=== PATIENT | male | born 1955 | race Caucasian/White ===

== ENCOUNTER 2021-10-29 11:47 | Inpatient (IN) | payer BC ==
[2021-10-29 12:23] LABS: Basophils % (A) 0 %; Eosinophils # (A) 0.1 k/uL (0-0.7); Eosinophils % (A) 1 %; HCT 45.8 % (39.0-53.0); HGB 15.7 gm/dL (13.0-17.5); Lymphocytes # (A) 2.4 k/uL (1.0-4.8); Lymphocytes % (A) 25 %; MCH 32.5 pg (25.0-35.0); MCHC 34.2 g/dL (31.0-37.0); MCV 94.9 fL (80.0-100.0); Mean Platelet Volume 7.1; Monocytes # (A) 0.4 k/uL (0-1.0); Monocytes % (A) 5 %; Neutrophils # (A) 6.6 k/uL (1.3-7.7); Neutrophils % (A) 68 %; Platelet Count 232 k/uL (150-450); RBC 4.83 m/uL (4.30-5.90); RDW 13.7 % (11.5-15.5); WBC 9.7 k/uL (3.8-10.6)
[2021-10-29 12:33] LABS: Partial Thromboplastin Time 24.5 sec (22.0-30.0); Prothrombin Time 10.6 sec (9.0-12.0)
[2021-10-29 12:37] LABS: ALT 23 U/L (4-49); AST 18 U/L (17-59); African American GFR (CKD) >90 (>60 ml/min/1.73 sqM); Albumin 4.2 g/dL (3.5-5.0); Alkaline Phosphatase 77 U/L (38-126); Anion Gap 11 mmol/L; Blood Urea Nitrogen 8 mg/dL (9-20); Calcium 8.7 mg/dL (8.4-10.2); Carbon Dioxide 25 mmol/L (22-30); Chloride 100 mmol/L (98-107); Glucose 249 mg/dL (74-99); Non-African American GFR(CKD) >90 (>60 ml/min/1.73 sqM); Sodium 136 mmol/L (137-145); Total Bilirubin 0.9 mg/dL (0.2-1.3); Total Protein 6.7 g/dL (6.3-8.2)
[2021-10-29] MEDS ORDERED: NITROGLYCERIN OINT 1 INCH/GM PACKET TOPICAL STA (13:03)
[2021-10-29] MEDS ORDERED: ASPIRIN 81 MG PO STA (13:03)
[2021-10-29] MEDS ORDERED: MORPHINE SULFATE 4 MG/ML SYRINGE IV STA (13:03)
[2021-10-29] MEDS ORDERED: HEPARIN SODIUM 1,000 UN/ML (10ML VL) IV ONE (13:04)
[2021-10-29] MEDS ORDERED: HEPARIN SODIUM 1,000 UN/ML (10ML VL) IV PRN (13:04)
[2021-10-29] MEDS ORDERED: POTASSIUM CHLORIDE ER 20 MEQ TAB.ER PO STA (13:04)
--- NOTE | 2021-10-29 13:30 | XR ---
EXAMINATION TYPE: XR chest 2V DATE OF EXAM: 10/29/2021 1:13 PM COMPARISON: None TECHNIQUE: XR chest 2V Frontal and lateral views of the chest. CLINICAL INDICATION:Male, 66 years old with history of Pain; FINDINGS: Lungs/Pleura: There is no evidence of pleural effusion, focal consolidation, or pneumothorax. Pulmonary vascularity: Unremarkable. Heart/mediastinum: Cardiomediastinal silhouette is unremarkable. Musculoskeletal: No acute osseous pathology. IMPRESSION: No acute cardiopulmonary disease/process.
[2021-10-29] MEDS: HEPARIN SOD,PORK IN 0.45% NACL 25,000 UNIT in 0.45% NACL 1 250ML.BAG IV SCH (13:34)
[2021-10-29 13:39] LABS: INR 1.1 (<1.2)
[2021-10-29 13:40] LABS: Prothrombin Time 11.4 sec (9.0-12.0)
--- NOTE | 2021-10-29 13:50 | ED ---
Chest Pain HPI - General Chief Complaint: Chest Pain Stated Complaint: chest pain Time Seen by Provider: 10/29/21 12:57 Source: patient Mode of arrival: ambulatory Limitations: no limitations - History of Present Illness Initial Comments: This patient is 66-year-old man who presents to be evaluated for chest pain that started yesterday in the morning. He states that he has had associated fatigue and thinks that he slept for about 18 hours yesterday. This morning he also had an episode of diaphoresis associated with the pain. The patient states that the pain has decreased somewhat since he has arrived here. Patient does have proximal pack per day smoking history. MD Complaint: chest pain Onset/Timin -: hour(s) Onset: during rest Pain Location: substernal Pain Radiation: back Severity: severe Quality: heaviness Consistency: now resolved (Partially resolved) Improves With: nothing Worsens With: nothing Anginal Symptoms: diaphoresis Treatments Prior to Arrival: none - Related Data Home Medications Medication Instructions Recorded Confirmed Lansoprazole [Prevacid 24Hr] 30 mg PO DAILY 10/29/21 10/29/21 Simvastatin [Zocor] 20 mg PO HS 10/29/21 10/29/21 Tamsulosin [Flomax] 0.4 mg PO DAILY 10/29/21 10/29/21 amLODIPine [Norvasc] 5 mg PO DAILY 10/29/21 10/29/21 Allergies Allergy/AdvReac Type Severity Reaction Status Date / Time No Known Allergies Allergy Verified 10/29/21 13:59 Review of Systems ROS Statement: Those systems with pertinent positive or pertinent negative responses have been documented in the HPI. ROS Other: All systems not noted in ROS Statement are negative. Constitutional: Denies: fever, chills Respiratory: Denies: cough, dyspnea, wheezes Cardiovascular: Reports: as per HPI, chest pain. Denies: palpitations, edema, syncope Gastrointestinal: Denies: abdominal pain, nausea, vomiting, diarrhea Genitourinary: Denies: dysuria, hematuria Musculoskeletal: Denies: back pain Skin: Denies: rash Neurological: Denies: headache, weakness, numbness Past Medical History Past Medical History: Cancer Additional Past Medical History / Comment(s): Jordan KNOTT History of Any Multi-Drug Resistant Organisms: None Reported Past Surgical History: No Surgical Hx Reported Smoking Status: Current every day smoker Past Alcohol Use History: Daily Past Drug Use History: None Reported - Past Family History Father History Unknown: Yes Mother History Unknown: Yes General Exam Limitations: no limitations General appearance: alert, in no apparent distress Head exam: Present: atraumatic, normocephalic Eye exam: Present: normal appearance. Absent: scleral icterus, conjunctival injection Neck exam: Present: normal inspection Respiratory exam: Present: normal lung sounds bilaterally. Absent: respiratory distress, wheezes, rales, rhonchi, stridor, chest wall tenderness, accessory muscle use Cardiovascular Exam: Present: regular rate, normal rhythm, normal heart sounds. Absent: systolic murmur, diastolic murmur, rubs, gallop GI/Abdominal exam: Present: soft. Absent: distended, tenderness, guarding, rebound, rigid, mass Extremities exam: Present: normal inspection, normal capillary refill. Absent: pedal edema, calf tenderness Back exam: Present: normal inspection. Absent: CVA tenderness (R), CVA tenderness (L) Neurological exam: Present: alert Skin exam: Present: warm, dry, intact, normal color. Absent: rash Course Vital Signs 10/29/21 10/29/21 10/29/21 11:51 13:35 13:55 Temperature 98.6 F Pulse Rate 88 72 Pulse Rate [ 72 Pulse Oximetery ] Respiratory 20 16 Rate Blood Pressure 114/69 139/90 O2 Sat by Pulse 100 94 L Oximetry 10/29/21 17:10 Temperature 98.1 F Pulse Rate 77 Pulse Rate [ Pulse Oximetery ] Respiratory 18 Rate Blood Pressure 149/94 O2 Sat by Pulse 93 L Oximetry Critical Care Time Critical Care Time: Yes (30 minutes) Disposition Clinical Impression: NSTEMI (non-ST elevated myocardial infarction), Chest pain Disposition: ADMITTED IP TO THIS HOSP Condition: Fair Is patient prescribed a controlled substance at d/c from ED?: No
[2021-10-29] MEDS ORDERED: NALOXONE 0.4 MG/ML 1 ML VIAL IV PRN (13:52)
--- NOTE | 2021-10-29 14:18 | P.HPIM ---
History of Present Illness H&P Date: 10/29/21 Chief Complaint: chest pain 66-year-old man with history of hypertension, hyperlipidemia, GERD, BPH presented to the emergency department due to having chest pain that started yesterday in the morning. He states that he has had associated fatigue and thinks that he slept for about 18 hours yesterday. Pain is stabbing in quality, feels like someone is putting a knife in between his shoulder blades. It is also associated with shortness of breath. No nausea, vomiting, diaphoresis, dizziness, palpitations. Pain is constant. It is currently better compared to when he came in. Evaluation in the emergency department revealed a slightly elevated troponin at 0.049. Potassium was 3. Rest of labs okay. Chest x-ray did not show any acute cardiopulmonary disease. Review of Systems Complete review of system performed, pertinent positives per HPI, otherwise negative Past Medical History Past Medical History: Cancer Additional Past Medical History / Comment(s): Jordan KNOTT History of Any Multi-Drug Resistant Organisms: None Reported Past Surgical History: No Surgical Hx Reported Smoking Status: Current every day smoker Past Alcohol Use History: Daily Past Drug Use History: None Reported Medications and Allergies Home Medications Medication Instructions Recorded Confirmed Type Lansoprazole [Prevacid 24Hr] 30 mg PO DAILY 10/29/21 10/29/21 History Simvastatin [Zocor] 20 mg PO HS 10/29/21 10/29/21 History Tamsulosin [Flomax] 0.4 mg PO DAILY 10/29/21 10/29/21 History amLODIPine [Norvasc] 5 mg PO DAILY 10/29/21 10/29/21 History Allergies Allergy/AdvReac Type Severity Reaction Status Date / Time No Known Allergies Allergy Verified 10/29/21 13:59 Physical Exam Vitals: Vital Signs Temp Pulse Pulse Resp BP Pulse Ox 10/29/21 13:55 72 16 139/90 94 L 10/29/21 13:35 72 10/29/21 11:51 98.6 F 88 20 114/69 100 Intake and Output 10/28/21 10/29/21 10/29/21 22:59 06:59 14:59 Other: Weight 78.925 kg Constitutional: No acute distress, conversant, pleasant Eyes:Anicteric sclerae, moist conjunctiva, no lid-lag, PERRLA, ENMT: Oropharynx clear, no erythema, exudates Neck: Supple, FROM, no masses, or JVD, No carotid bruits, No thyromegaly Lungs: Clear to auscultation, Clear to percussion, Normal respiratory effort, no accessory muscle use Cardiovascular: Heart regular in rate and rhythm, No murmurs, gallops, or rubs, No peripheral edema Abdominal: Soft, Nontender, no guarding, rebound or rigidity, Normoactive bowel sounds, No hepatomegaly, No splenomegaly, No palpable mass Skin: Normal temperature, tone, texture, turgor, no induration, No subcutaneous nodules, No rash, lesions, No ulcers Extremities: No digital cyanosis, No clubbing, Pedal pulses intact and symmetrical, Radial pulses intact and symmetrical, No calf tenderness Psychiatric: Alert and oriented to person, place and time, appropriate affect, intact judgement Neuro: Muscles Strength 5/5 in all 4 extremities, Sensation to light touch grossly present throughout, Cranial nerves II-XII grossly intact, no focal sensory deficits Results CBC & Chem 7: 10/29/21 11:57 10/29/21 11:57 Labs: Abnormal Lab Results - Last 24 Hours (Table) 10/29/21 10/29/21 Range/Units 11:57 11:57 Sodium 136 L (137-145) mmol/L Potassium 3.0 L (3.5-5.1) mmol/L BUN 8 L (9-20) mg/dL Creatinine 0.52 L (0.66-1.25) mg/dL Glucose 249 H (74-99) mg/dL Troponin I 0.049 H* (0.000-0.034) ng/mL Assessment and Plan Plan: Acute chest pain with elevated troponin Non-ST elevation myocardial infarction Heparin drip Started on aspirin Cardio consult. Telemetry Cycle troponins Echo CT angio chest to r/o PE or dissection Chronic Hypertension Hyperlipidemia BPH GERD All stable Resume meds Admit to inpatient, expected length of stay more than 2 midnights.
--- NOTE | 2021-10-29 14:58 | CT ---
EXAMINATION TYPE: CT chest angio for PE DATE OF EXAM: 10/29/2021 COMPARISON: None HISTORY: chest pain CT DLP: 764.4 mGycm Automated exposure control for dose reduction was used. CONTRAST: Performed with IV Contrast, patient injected with 100 mL of Isovue 370. There are Three-D postprocessed images. There is 2 x 1 cm pretracheal lymph node. Thoracic aorta is atheromatous. No aneurysm. The ascending aorta measures 3.4 cm. There are no hilar masses. Heart size is normal. No pericardial effusion. No p leural effusion. The lungs are clear of infiltrate. No evidence of a pulmonary mass. There is normal contrast opacification of the pulmonary arteries. No filling defect. Thoracic spine i s intact. There is no compression fracture. Sternum is intact. There is thickening of the gastric wall. IMPRESSION: No evidence of pulmonary embolism. Atherosclerotic vascular disease. Gastric wall thickening that could relate to hypertrophic gastritis.
[2021-10-30 03:26] LABS: Basophils % (A) 0 %; Eosinophils # (A) 0.1 k/uL (0-0.7); Eosinophils % (A) 1 %; HCT 43.9 % (39.0-53.0); HGB 14.8 gm/dL (13.0-17.5); Lymphocytes # (A) 2.9 k/uL (1.0-4.8); Lymphocytes % (A) 31 %; MCH 32.9 pg (25.0-35.0); MCHC 33.7 g/dL (31.0-37.0); MCV 97.5 fL (80.0-100.0); Mean Platelet Volume 7.1; Monocytes # (A) 0.4 k/uL (0-1.0); Monocytes % (A) 5 %; Neutrophils # (A) 5.7 k/uL (1.3-7.7); Neutrophils % (A) 61 %; Platelet Count 220 k/uL (150-450); RDW 13.7 % (11.5-15.5); WBC 9.2 k/uL (3.8-10.6)
[2021-10-30 03:38] LABS: ALT 20 U/L (4-49); AST 16 U/L (17-59); African American GFR (CKD) >90 (>60 ml/min/1.73 sqM); Albumin 3.8 g/dL (3.5-5.0); Alkaline Phosphatase 73 U/L (38-126); Anion Gap 10 mmol/L; Blood Urea Nitrogen 9 mg/dL (9-20); Calcium 8.6 mg/dL (8.4-10.2); Carbon Dioxide 27 mmol/L (22-30); Chloride 99 mmol/L (98-107); Glucose 250 mg/dL (74-99); Non-African American GFR(CKD) >90 (>60 ml/min/1.73 sqM); Potassium 3.4 mmol/L (3.5-5.1); Sodium 136 mmol/L (137-145); Total Bilirubin 0.6 mg/dL (0.2-1.3); Total Protein 6.3 g/dL (6.3-8.2)
[2021-10-30] MEDS ORDERED: HEPARIN SODIUM,PORCINE 10,000 UNIT in SODIUM CHLORIDE 0.9% 1,000 ML IRRIGATION PRN (07:00)
[2021-10-30] MEDS ORDERED: HEPARIN SODIUM,PORCINE 2,500 UNIT in SODIUM CHLORIDE 0.9% 250 ML IRRIGATION PRN (07:00)
[2021-10-30] MEDS ORDERED: Potassium Replacement Protocol 1 EACH MISC MISCELLANE PRN (07:44)
[2021-10-30] MEDS ORDERED: POTASSIUM CHLORIDE ER 20 MEQ TAB.ER PO STA (07:45)
[2021-10-30] MEDS: TAMSULOSIN 0.4 MG CAP.ER.24H PO SCH (08:31)
[2021-10-30] MEDS: amLODIPine 5 MG TAB PO SCH (08:31)
[2021-10-30] MEDS ORDERED: ALPRAZolam 0.5 MG TAB PO PRN (08:48)
[2021-10-30] MEDS ORDERED: SODIUM CHLORIDE 0.9% 1,000 ML in EMPTY BAG 1 BAG IV ONE (08:48)
[2021-10-30] MEDS ORDERED: ATORVASTATIN 80 MG TAB PO STA (08:48)
[2021-10-30] MEDS ORDERED: ALPRAZolam 0.25 MG TAB PO PRN (08:48)
[2021-10-30] MEDS ORDERED: ASPIRIN 325 MG TAB PO SCH (09:00)
--- NOTE | 2021-10-30 09:20 | P.CRDCN ---
History of Present Illness History of present illness: HISTORY OF PRESENTING ILLNESS This is a pleasant 66-year-old male past medical history significant for hypertension, dyslipidemia, GERD, BPH, bladder cancer, tobacco dependence. 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 We have been asked to see in consultation for chest pain. Patient presents to the emergency department with complaints of chest pain. Patient states saturday he helped his friend unpack a [employer]. Afterwards he went home, and began to have midsternal/left sided chest pain, radiating to his back. He states it was pressure discomfort and felt as if someone was stabbing his back. He had pain at rest and activity. No tenderness to his chest or back. He had relief with nitroglycerin ointment. He had associated shortness of breath. Denies any nausea, vomiting, lightheadedness, dizziness, diaphoresis, syncope or near syncope. He denies any history of CAD, NE, stroke or diabetes. He is a current every day smoker, smokes 1PPD. Denies any family history of heart disease. DIAGNOSTICS * EKG reveals sinus rhythm HR 82, minimal ST depression in lead V3. No prior EKG to compare. * CTA of the chest reported as no pulmonary embolism, atherosclerotic vascular disease, ascending aorta measures 3.4 cm, pretracheal lymph node, gastric wall thickening that could relate to hypertrophic gastritis. * Telemetry tracings indicate sinus mechanism with HR 70s-80s * Chest xray no acute cardiopulmonary process * Laboratory reviewed, troponin 0.049, serum 054, 0.048, sodium 136, potassium 3.4, BUN 9, serum creatinine 0.6, WBC 9.2, hemoglobin 14.8, platelets 220, Coban negative * Current home medications include amlodipine 5 mg daily, simvastatin 20 mg nightly REVIEW OF SYSTEMS At the time of my exam: CONSTITUTIONAL: Denies fever or chills. CARDIOVASCULAR: +chest pain, +shortness of breath, Denies orthopnea, PND or palpitations. RESPIRATORY: Denies cough. GASTROINTESTINAL: Denies abdominal pain, diarrhea, constipation, nausea or vomiting. MUSCULOSKELETAL: Denies myalgias. NEUROLOGIC: Denies numbness, tingling, headache or weakness. ENDOCRINE: Denies fatigue, weight change, polydipsia or polyurina. GENITOURINARY: Denies burning, hematuria or urgency with micturation. HEMATOLOGIC: Denies history of anemia or bleeding. PHYSICAL EXAMINATION Vitals reviewed CONSTITUTIONAL: No apparent distress. HEENT: Head is normocephalic. Pupils are equal, round. Sclerae anicteric. Mucous membranes of the mouth are moist. No JVD. No carotid bruit. CHEST EXAMINATION: Lungs are clear to auscultation. No chest wall tenderness is noted on palpation or with deep breathing. HEART EXAMINATION: Regular rate and rhythm. S1, S2 heard. No murmurs, gallops or rub. ABDOMEN: Soft, nontender. Positive bowel sounds. EXTREMITIES: 2+ peripheral pulses, no lower extremity edema and no calf tenderness. SKIN: warm, dry NEUROLOGIC EXAMINATION: Patient is awake, alert and oriented x3. ASSESSMENT Chest pain and mildly elevated troponin, concerning for NSTEMI Tobacco dependence Hypertension Dyslipidemia GERD BPH PLAN Recommend cardiac catheterization at this time, patient is agreeable. Obtain 2D echocardiogram and doppler study to assess cardiac structure and function. I have discussed the risks, benefits and alternative therapies for the above- mentioned procedure and for both sedation/analgesia as well as necessary blood product administration, if indicated, as they pertain to this patient. The patient has indicated understanding and acceptance of the risks and procedures discussed. Questions have been answered appropriately and he is agreeable to move forward with the above-stated procedure. Further recommendations based on clinical course Smoking cessation discussed and highly recommended. Thank you kindly for this consultation. Nurse practitioner note has been reviewed by physician. Signing provider agrees with the documented findings, assessment, and plan of care. Past Medical History Past Medical History: Cancer Additional Past Medical History / Comment(s): Bladder CA 8 years ago chemical dye/cystoscopy History of Any Multi-Drug Resistant Organisms: None Reported Past Surgical History: No Surgical Hx Reported Past Anesthesia/Blood Transfusion Reactions: No Reported Reaction Past Psychological History: No Psychological Hx Reported Smoking Status: Current every day smoker Past Alcohol Use History: Daily Past Drug Use History: None Reported - Past Family History Father History Unknown: Yes Mother History Unknown: Yes Medications and Allergies Home Medications Medication Instructions Recorded Confirmed Type Lansoprazole [Prevacid 24Hr] 30 mg PO DAILY 10/29/21 10/29/21 History Simvastatin [Zocor] 20 mg PO HS 10/29/21 10/29/21 History Tamsulosin [Flomax] 0.4 mg PO DAILY 10/29/21 10/29/21 History amLODIPine [Norvasc] 5 mg PO DAILY 10/29/21 10/29/21 History Allergies Allergy/AdvReac Type Severity Reaction Status Date / Time No Known Allergies Allergy Verified 10/29/21 13:59 Physical Exam Vitals: Vital Signs Temp Pulse Pulse Resp BP BP Pulse Ox 10/30/21 02:00 98.5 F 67 17 134/72 92 L 10/30/21 01:47 67 18 10/29/21 20:00 98.9 F 72 18 115/70 95 10/29/21 17:59 99.1 F 72 17 157/85 95 10/29/21 17:10 98.1 F 77 18 149/94 93 L 10/29/21 13:55 72 16 139/90 94 L 10/29/21 13:35 72 10/29/21 11:51 98.6 F 88 20 114/69 100 Intake and Output 10/29/21 10/30/21 10/30/21 22:59 06:59 14:59 Intake Total 68.665 161.886 Balance 68.665 161.886 Intake: IV 80 Heparin Sod,Pork in 0.45% 80 NaCl 25,000 unit In 0.45 % NaCl 1 250ml.bag @ 12 UNITS/KG/HR 9.471 mls/hr IV .Q24H [facility] Rx#: [id number] Intake, IV Titration 68.665 81.886 Amount Heparin Sod,Pork in 0.45% 68.665 81.886 NaCl 25,000 unit In 0.45 % NaCl 1 250ml.bag @ 12 UNITS/KG/HR 9.471 mls/hr IV .Q24H [facility] Rx#: [id number] Other: Voiding Method Toilet Toilet Urinal Urinal # Voids 1 1 Weight 78.925 kg Results 10/30/21 02:59 10/30/21 02:59 Cardiac Enzymes 10/29/21 10/29/21 10/29/21 Range/Units 11:57 11:57 13:20 AST 18 (17-59) U/L Troponin I 0.049 H* 0.054 H* (0.000-0.034) ng/mL 10/29/21 10/30/21 Range/Units 18:33 02:59 AST 16 L (17-59) U/L Troponin I 0.048 H* (0.000-0.034) ng/mL Coagulation 10/29/21 10/29/21 10/29/21 Range/Units 11:57 13:20 18:33 PT 10.6 11.4 (9.0-12.0) sec APTT 24.5 30.3 H (22.0-30.0) sec 10/30/21 Range/Units 02:59 PT (9.0-12.0) sec APTT 34.5 H (22.0-30.0) sec CBC 10/29/21 10/30/21 Range/Units 11:57 02:59 WBC 9.7 9.2 (3.8-10.6) k/uL RBC 4.83 4.50 (4.30-5.90) m/uL Hgb 15.7 14.8 (13.0-17.5) gm/dL Hct 45.8 43.9 (39.0-53.0) % Plt Count 232 220 (150-450) k/uL Comprehensive Metabolic Panel 10/29/21 10/30/21 Range/Units 11:57 02:59 Sodium 136 L 136 L (137-145) mmol/L Potassium 3.0 L 3.4 L (3.5-5.1) mmol/L Chloride 100 99 (98-107) mmol/L Carbon Dioxide 25 27 (22-30) mmol/L BUN 8 L 9 (9-20) mg/dL Creatinine 0.52 L 0.63 L (0.66-1.25) mg/dL Glucose 249 H 250 H (74-99) mg/dL Calcium 8.7 8.6 (8.4-10.2) mg/dL AST 18 16 L (17-59) U/L ALT 23 20 (4-49) U/L Alkaline Phosphatase 77 73 (38-126) U/L Total Protein 6.7 6.3 (6.3-8.2) g/dL Albumin 4.2 3.8 (3.5-5.0) g/dL Current Medications Generic Name Dose Route Start Last Admin Trade Name Freq PRN Reason Stop Dose Admin Amlodipine Besylate 5 mg 10/30/21 09:00 Amlodipine 5 Mg Tab PO DAILY ROLANDO Aspirin 325 mg 10/30/21 09:00 Aspirin 325 Mg Tab PO DAILY ROLANDO Atorvastatin Calcium 10 mg 10/30/21 22:17 Atorvastatin 10 Mg Tab PO HS ROLANDO Heparin Sodium (Porcine) 0 unit 10/29/21 13:04 Heparin Sodium 1,000 Un/Ml (10ml Vl) IV PER PROTOCOL PRN Low PTT Protocol Heparin Sodium/Sodium Chloride 250 mls @ 9.471 mls/hr 10/29/21 13:15 10/30/21 03:44 25,000 unit/ Sodium Chloride IV 18 units/kg/hr .Q24H ROLANDO 14.207 mls/hr Titration Protocol 12 UNITS/KG/HR Naloxone HCl 0.2 mg 10/29/21 13:52 Naloxone 0.4 Mg/Ml 1 Ml Vial IV Q2M PRN Opioid Reversal Nitroglycerin 0.4 mg 10/29/21 13:43 Nitroglycerin Sl Tabs 0.4 Mg Tab SUBLINGUAL Q5M PRN Chest Pain Tamsulosin HCl 0.4 mg 10/30/21 09:00 Tamsulosin 0.4 Mg Cap.Er.24h PO DAILY [facility] Intake and Output 10/29/21 10/30/21 10/30/21 22:59 06:59 14:59 Intake Total 68.665 161.886 Balance 68.665 161.886 Intake: IV 80 Heparin Sod,Pork in 0.45% 80 NaCl 25,000 unit In 0.45 % NaCl 1 250ml.bag @ 12 UNITS/KG/HR 9.471 mls/hr IV .Q24H [facility] Rx#: [id number] Intake, IV Titration 68.665 81.886 Amount Heparin Sod,Pork in 0.45% 68.665 81.886 NaCl 25,000 unit In 0.45 % NaCl 1 250ml.bag @ 12 UNITS/KG/HR 9.471 mls/hr IV .Q24H [facility] Rx#: [id number] Other: Voiding Method Toilet Toilet Urinal Urinal # Voids 1 1 Weight 78.925 kg 10/30/21 02:59 10/30/21 02:59
[2021-10-30] MEDS ORDERED: VERAPAMIL 2.5 MG/ML 2 ML AMP ONE (09:33)
[2021-10-30] MEDS ORDERED: IV FLUID CONTINUATION 1,000 ML IV ONE (09:46)
[2021-10-30] MEDS ORDERED: HEPARIN SODIUM 1,000 UN/ML (10ML VL) ONE (09:53)
[2021-10-30] MEDS ORDERED: MIDAZOLAM 2 MG/2 ML VIAL IV ONE ×2 (10:09)
[2021-10-30] MEDS ORDERED: VERAPAMIL SYRINGE (5 MG/10 ML) INTRAARTER ONE ×2 (10:10→10:11)
[2021-10-30] MEDS ORDERED: LIDOCAINE 1% INJ 10MG/ML (30 ML VIAL-PF) SQ ONE (10:10)
[2021-10-30] MEDS ORDERED: IOPAMIDOL-370 125ML BTL INJ ONE (10:32)
[2021-10-30] MEDS ORDERED: HEPARIN SODIUM 1,000 UN/ML (10ML VL) IV ONE (10:32)
[2021-10-30 10:48] LABS: LDL Cholesterol,Calculated 78.4 mg/dL (0.0-131.0)
[2021-10-30] MEDS: NICOTINE 21MG/24HR PATCH TRANSDERM SCH (11:28)
[2021-10-30] MEDS ORDERED: ACETAMINOPHEN TAB 325 MG TAB PO PRN (11:33)
[2021-10-30] MEDS: lisinopriL 5 MG TAB PO SCH (11:38)
[2021-10-30] MEDS ORDERED: RX INFO: IV CONTRAST WAS GIVEN 1 EACH MISC MISCELLANE PRN (11:39)
--- NOTE | 2021-10-30 11:40 | CA ---
Transthoracic Echo Report Name: Desmond Valentino Age: 66 Gender: M : 1955 Exam Date: 10/30/2021 08:09 Exam Location: [facility] Ht (in): 66 Wt (lb): 174 Ordering Physician: Wenyd Kilpatrick MD Attending/Referring Phys: [id number], [employer] Art Director Geeta Courtney RDCS Procedure CPT: Indications: nstemi Cardiac Hx: Technical Quality: Technically difficult study Contrast 1: Lumason Total Dose (mL): 4 Contrast 2: Total Dose (mL): MEASUREMENTS (Male / Female) Normal Values 2D ECHO LV Diastolic Diameter PLAX 3.8 cm 4.2 - 5.9 / 3.9 - 5.3 cm LV Systolic Diameter PLAX 2.8 cm IVS Diastolic Thickness 1.1 cm 0.6 - 1.0 / 0.6 - 0.9 cm LVPW Diastolic Thickness 1.3 cm 0.6 - 1.0 / 0.6 - 0.9 cm LV Relative Wall Thickness 0.7 LA Volume 30.6 cm??? 18 - 58 / 22 - 52 cm??? M-MODE Aortic Root Diameter MM 2.8 cm AV Cusp Separation MM 1.9 cm DOPPLER AV Peak Velocity 159.7 cm/s AV Peak Gradient 10.2 mmHg LVOT Peak Velocity 109.5 cm/s LVOT Peak Gradient 4.8 mmHg MV Area PHT 2.8 cm??? Mitral E Point Velocity 68.6 cm/s Mitral A Point Velocity 96.1 cm/s Mitral E to A Ratio 0.7 MV Deceleration Time 268.1 ms TR Peak Velocity 154.2 cm/s TR Peak Gradient 9.5 mmHg Right Ventricular Systolic Press 14.5 mmHg FINDINGS Left Ventricle Mildly increased septal wall thickness. Normal left ventricular systolic function with no obvious regional wall motion abnormalities. Left ventricular ejection fraction is estimated at 55 %. Right Ventricle Normal right ventricular size and function. Right ventricular systolic pressure within normal limits. Right Atrium Normal right atrial size. Left Atrium Normal left atrial size. Mitral Valve No mitral stenosis. Mild mitral annular calcification. Trace mitral regurgitation. Aortic Valve No aortic valve stenosis or regurgitation. Tricuspid Valve Structurally normal tricuspid valve. Mild tricuspid regurgitation. Pulmonic Valve Trace pulmonic regurgitation. Pericardium No pericardial effusion. Aorta Normal size aortic root and proximal ascending aorta. CONCLUSIONS mild LVH with preserved systolic function Previewed by: Dr. Cory Guo MD (Electronically Signed) Final Date: 30 October 2021 11:39
--- NOTE | 2021-10-30 11:43 | P.PCN ---
Date of Procedure: 10/30/21 Operative Findings: CARDIAC CATHETERIZATION PERFORMING PHYSICIAN: Rinku Peng MD, RPVI PROCEDURE PERFORMED: 1. Selective right and left coronary angiogram 2. Left heart catheterization INDICATION: Acute coronary syndrome/acute non-ST patient myocardial infarction 66-year-old gentleman with a smoking and hypertension and dyslipidemia COMPLICATION: None APPROACH: Right radial artery LEVEL OF SEDATION: Moderate with a sedation length of 20 minutes PROCEDURE DESCRIPTION: After obtaining an informed consent, the patient was brought to cardiac director of cardiac cath lab. Local anesthesia was performed using lidocaine subcutaneously. The right radial artery was cannulated using Seldinger technique, the guidewire passed easily, following that we advanced a 5-[place] sheath dilator assembly, the wire and dilator were removed and sheath was flushed. Following that, 2 mg of verapamil along with 5000 unit heparin were given. Selective right and left coronary angiogram using a 6-[place] JR4 and JL 3.5 catheters. Following that we did left heart catheterization using 6-[place] pigtail catheter. The procedure was completed there was no complication. SELECTIVE CORONARY ANGIOGRAM: The right coronary artery: Large caliber vessel and a dominant vessel. The mid RCA has a lesion appears to be in the range of 40%. Left main: Is angiographically normal. Bifurcates into LCx and LAD The left circumflex: The LCx has a long tubular lesion appears to be in the range of 60%. The left anterior descending artery: Has a long tubular lesion as well appears to be in the range of 60-70%. HEMODYNAMICS: The LVEDP was about 18 mmHg was no significant gradient across aortic valve CONCLUSION: 1. 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 2. Mildly elevated left-sided filling pressure POSTPROCEDURE MANAGEMENT: Consider maximize medical treatment at this point. The patient was not on anti- ischemic medication Consider myocardial perfusion imaging stress test to assess for ischemia in the LAD territory
[2021-10-30] MEDS ORDERED: SODIUM CHLORIDE 0.9% 1,000 ML IV SCH (11:45)
[2021-10-30] MEDS: HEPARIN SOD,PORK IN 0.45% NACL 25,000 UNIT in 0.45% NACL 1 250ML.BAG IV SCH (14:41)
--- NOTE | 2021-10-30 16:36 | P.PN ---
Progress Note - Text Progress Note Date: 10/30/21 Hospital course: Admitted with chest pain. [place] to be possible non-STEMI. October 30: Patient's care was assumed by me today. Underwent cardiac catheterization. [place] of intermediate to was in CAD involving the left circumflex and LAD. Decision made to do medical management. Patient and the bed. at the bedside. Currently no chest pain or shortness of breath. Patient is a smoker. Active Medications Acetaminophen (Acetaminophen Tab 325 Mg Tab) 325 mg PO Q6HR PRN PRN Reason: Fever and/ or Pain Alprazolam (Alprazolam 0.25 Mg Tab) 0.25 mg PO Q6HR PRN PRN Reason: Mild Anxiety Alprazolam (Alprazolam 0.5 Mg Tab) 0.5 mg PO Q6HR PRN PRN Reason: Moderate Anxiety Amlodipine Besylate (Amlodipine 5 Mg Tab) 5 mg PO DAILY [facility] Last Admin: 10/30/21 08:31 Dose: 5 mg Aspirin (Aspirin 81 Mg) 81 mg PO DAILY [facility] Atorvastatin Calcium (Atorvastatin 10 Mg Tab) 10 mg PO HS [facility] Heparin Sodium (Porcine) (Heparin Sodium 1,000 Un/Ml (10ml Vl)) 0 unit IV PER PROTOCOL PRN; Protocol PRN Reason: Low PTT Heparin Sodium/Sodium Chloride (25,000 unit/ Sodium Chloride) 250 mls @ 9.471 mls/hr IV .Q24H [facility]; Protocol Last Admin: 10/30/21 14:41 Dose: Not Given Heparin Sodium (Porcine) 10, (000 unit/ Sodium Chloride) 1,001 mls @ 999 mls/hr IRRIGATION ONCE PRN PRN Reason: INTRA-OP Stop: 10/31/21 07:01 Heparin Sodium (Porcine) 2,500 (unit/ Sodium Chloride) 250.5 mls @ 250 mls/hr IRRIGATION ONCE PRN PRN Reason: INTRA-OP Stop: 10/31/21 07:01 Sodium Chloride (Saline 0.9%) 1,000 mls @ 75 mls/hr IV .[id number] [facility] Stop: 10/30/21 16:46 Last Admin: 10/30/21 14:42 Dose: 75 mls/hr Lisinopril (Lisinopril 5 Mg Tab) 5 mg PO DAILY [facility] Last Admin: 10/30/21 11:38 Dose: 5 mg Miscellaneous Information (Potassium Replacement Protocol 1 Each Misc) 1 each MISCELLANE DAILY PRN; Protocol PRN Reason: Per Protocol Miscellaneous Information (Rx Info: Iv Contrast Was Given 1 Each Misc) 1 each MISCELLANE DAILY PRN PRN Reason: Per Protocol Stop: 11/01/21 11:39 Naloxone HCl (Naloxone 0.4 Mg/Ml 1 Ml Vial) 0.2 mg IV Q2M PRN PRN Reason: Opioid Reversal Nicotine (Nicotine 21mg/24hr Patch) 1 patch TRANSDERM DAILY [facility] Last Admin: 10/30/21 11:28 Dose: 1 patch Nitroglycerin (Nitroglycerin Sl Tabs 0.4 Mg Tab) 0.4 mg SUBLINGUAL Q5M PRN PRN Reason: Chest Pain Tamsulosin HCl (Tamsulosin 0.4 Mg Cap.Er.24h) 0.4 mg PO DAILY [facility] Last Admin: 10/30/21 08:31 Dose: 0.4 mg On examination: VITAL SIGNS: [98.2, 77, 16, 142.73, 96% room air] GENERAL APPEARANCE: BMI 28.1, propped up in bed awake HEENT: Normal external appearance of nose and ear. Oral cavity normal EYES: Pupils equal. Conjunctiva normal. NECK: JVD not raised. Mass not palpable. RESPIRATORY: Respiratory effort normal. Lungs decreased breath sounds CARDIOVASCULAR: First and second sounds normal. No edema. ABDOMEN: Soft. Liver and spleen not palpable. No tenderness. No mass palpable. PSYCHIATRY: Alert and oriented x3. Mood and affect normal. INVESTIGATIONS, reviewed in the clinical context: White count 9.2 hemoglobin 14.8 platelets 220 potassium 3.4 BUN 9 creatinine 0.63 Troponin I 0.049, 0.054, 0.04 date LDL 78 triglycerides 249 HDL 29 COVID 19: Not detected 2-D echocardiogram: Normal motion abnormality. EF 55%. Chest CTA: Negative for PE Assessment and plan: -Acute non-STEMI, possibly plaque rupture Aspirin, Lipitor, -Nonobstructive CAD by cardiac cath Aspirin Lipitor -BPH Flomax 0.4 mg daily -GERD Prevacid -Chronic nicotine dependence, cigarette smoker Nicotine patch -Essential hypertension Zestril, Norvasc -Hyperlipidemia Lipitor Care was discussed with the patient. Increase Lipitor to 40 mg daily at bedtime. Nicotine patch. Activity activity as tolerated. Smoke cessation counseling: This was done with the patient. Nicotine patch is being given. More than 3 minutes was spent for this
[2021-10-30] MEDS: ATORVASTATIN 40 MG TAB PO SCH (19:46)
[2021-10-30] MEDS ORDERED: ATORVASTATIN 10 MG TAB PO SCH (22:17)
[2021-10-31 08:56] LABS: Basophils % (A) 1 %; Eosinophils # (A) 0.1 k/uL (0-0.7); Eosinophils % (A) 1 %; HCT 44.5 % (39.0-53.0); Lymphocytes # (A) 1.8 k/uL (1.0-4.8); Lymphocytes % (A) 25 %; MCH 32.3 pg (25.0-35.0); MCHC 33.7 g/dL (31.0-37.0); MCV 95.9 fL (80.0-100.0); Mean Platelet Volume 7.2; Monocytes # (A) 0.5 k/uL (0-1.0); Monocytes % (A) 6 %; Neutrophils # (A) 4.7 k/uL (1.3-7.7); Neutrophils % (A) 65 %; Platelet Count 244 k/uL (150-450); RBC 4.64 m/uL (4.30-5.90); RDW 13.6 % (11.5-15.5); WBC 7.3 k/uL (3.8-10.6)
[2021-10-31] MEDS ORDERED: ISOSORBIDE MONONITRATE ER 30 MG TAB.ER.24H PO SCH (09:00)
[2021-10-31] MEDS ORDERED: METOPROLOL SUCCINATE (ER) 25 MG TAB.ER.24H PO SCH (09:00)
[2021-10-31 09:06] LABS: African American GFR (CKD) >90 (>60 ml/min/1.73 sqM); Anion Gap 13 mmol/L; Blood Urea Nitrogen 6 mg/dL (9-20); Calcium 8.6 mg/dL (8.4-10.2); Carbon Dioxide 25 mmol/L (22-30); Chloride 100 mmol/L (98-107); Glucose 249 mg/dL (74-99); Non-African American GFR(CKD) >90 (>60 ml/min/1.73 sqM); Potassium 3.5 mmol/L (3.5-5.1); Sodium 138 mmol/L (137-145)
[2021-10-31] MEDS: CLOPIDOGREL 75 MG TAB PO SCH (09:42)
[2021-10-31] MEDS: TAMSULOSIN 0.4 MG CAP.ER.24H PO SCH (09:42)
[2021-10-31] MEDS: amLODIPine 5 MG TAB PO SCH (09:42)
[2021-10-31] MEDS: PANTOPRAZOLE 40 MG TABLET PO SCH ×2 (09:42→17:37)
[2021-10-31] MEDS: ASPIRIN 81 MG PO SCH (09:42)
[2021-10-31] MEDS: NICOTINE 21MG/24HR PATCH TRANSDERM SCH (09:43)
[2021-10-31] MEDS: METOPROLOL SUCCINATE (ER) 50 MG TAB.ER.24H PO SCH (09:43)
[2021-10-31] MEDS: lisinopriL 5 MG TAB PO SCH (09:43)
--- NOTE | 2021-10-31 11:16 | P.PN ---
Subjective This is a pleasant 66-year-old male past medical history significant for hypertension, dyslipidemia, GERD, BPH, bladder cancer, tobacco dependence. He does not follow a wellness health coach. We have been asked to see in consultation for chest pain. Patient presents to the emergency department with complaints of chest pain. Patient states saturday he helped his friend unpack a [employer]. Afterwards he went home, and began to have midsternal/left sided chest pain, radiating to his back. He states it was pressure discomfort and felt as if someone was stabbing his back. He had pain at rest and activity. No tenderness to his chest or back. He had relief with nitroglycerin ointment. He had associated shortness of breath. Denies any nausea, vomiting, lightheadedness, dizziness, diaphoresis, syncope or near syncope. He denies any history of CAD, [place], stroke or diabetes. He is a current every day smoker, smokes 1PPD. Denies any family history of heart disease. Patient underwent cardiac catheterization with Dr. Peng on 10/30 that revealed Intermediate two-vessel CAD involving the LCx and LAD with the LAD lesion appeared to be somewhat worse, Mildly elevated left-sided filling pressure 10/31 Patient seen and examined at bedside, no distress. He denies chest pain or shortness of breath. Blood pressure 147/85, heart rate 70, afebrile, saturations 98% room air. BUN 6, serum 0.4. Echocardiogram revealed EF of 55%, mild LVH, no significant wall motion or valvular abnormalities PHYSICAL EXAMINATION Vitals reviewed CONSTITUTIONAL: No apparent distress. HEENT: Neck Supple. No JVD. No carotid bruit. CHEST EXAMINATION: Lungs are clear to auscultation. No chest wall tenderness is noted on palpation or with deep breathing. HEART EXAMINATION: Regular rate and rhythm. S1, S2 heard. No murmurs, gallops or rub. ABDOMEN: Soft, nontender. Positive bowel sounds. EXTREMITIES: 2+ peripheral pulses, no lower extremity edema and no calf tenderness. SKIN: Right radial cath site, clean dry intact, no hematoma NEUROLOGIC EXAMINATION: Patient is awake, alert and oriented x3. ASSESSMENT Chest pain and mildly elevated troponin, concerning for NSTEMI Coronary artery disease, intermediate disease involving the LCx and LAD. Tobacco dependence Hypertension Dyslipidemia GERD BPH PLAN Start Plavix 75mg daily Metoprolol succinate 50mg daily Continue aspirin, statin, amlodipine, and lisinopril Continue to monitor for additional 24 hours Will consider diuretic if blood pressure not controlled Hopefully discharge in next 24 hours Nurse practitioner note has been reviewed by physician. Signing provider agrees with the documented findings, assessment, and plan of care. Objective - Vital Signs Vital signs: Vital Signs Temp 98.2 F 10/31/21 08:00 Pulse 73 10/31/21 08:00 Resp 17 10/31/21 08:00 BP 122/83 10/31/21 08:00 Pulse Ox 96 10/31/21 08:00 FiO2 Intake & Output 10/30/21 10/31/21 10/31/21 18:59 06:59 18:59 Intake Total 318 18.94 Balance 318 18.94 Intake: IV 200 18.94 Heparin Sod,Pork in 0.45% 18.94 NaCl 25,000 unit In 0.45 % NaCl 1 250ml.bag @ 12 UNITS/KG/HR 9.471 mls/hr IV .Q24H [facility] Rx#: [id number] Oral 118 Other: Voiding Method Toilet Toilet Urinal Urinal # Voids 1 - Labs CBC & Chem 7: 10/31/21 08:13 10/31/21 08:13 Labs: Abnormal Lab Results - Last 24 Hours (Table) 10/31/21 Range/Units 08:13 BUN 6 L (9-20) mg/dL Creatinine 0.49 L (0.66-1.25) mg/dL Glucose 249 H (74-99) mg/dL
--- NOTE | 2021-10-31 13:07 | P.PN ---
Progress Note - Text Progress Note Date: 10/31/21 Hospital course: Admitted with chest pain. [place] to be possible non-STEMI. October 30: Patient's care was assumed by me today. Underwent cardiac catheterization. [place] of intermediate to was in CAD involving the left circumflex and LAD. Decision made to do medical management. Patient and the bed. at the bedside. Currently no chest pain or shortness of breath. Patient is a smoker. October 31: Did walk in the hallway. No chest pain or shortness of breath. Discussed with the patient and . Plavix added today. Toprol-XL added today. Active Medications Acetaminophen (Acetaminophen Tab 325 Mg Tab) 325 mg PO Q6HR PRN PRN Reason: Fever and/ or Pain Last Admin: 10/30/21 17:53 Dose: 325 mg Alprazolam (Alprazolam 0.25 Mg Tab) 0.25 mg PO Q6HR PRN PRN Reason: Mild Anxiety Last Admin: 10/31/21 00:07 Dose: 0.25 mg Alprazolam (Alprazolam 0.5 Mg Tab) 0.5 mg PO Q6HR PRN PRN Reason: Moderate Anxiety Amlodipine Besylate (Amlodipine 5 Mg Tab) 5 mg PO DAILY [facility] Last Admin: 10/31/21 09:42 Dose: 5 mg Aspirin (Aspirin 81 Mg) 81 mg PO DAILY [facility] Last Admin: 10/31/21 09:42 Dose: 81 mg Atorvastatin Calcium (Atorvastatin 40 Mg Tab) 40 mg PO HS [facility] Last Admin: 10/30/21 19:46 Dose: 40 mg Clopidogrel Bisulfate (Clopidogrel 75 Mg Tab) 75 mg PO DAILY [facility] Last Admin: 10/31/21 09:42 Dose: 75 mg Isosorbide Mononitrate (Isosorbide Mononitrate Er 30 Mg Tab.Er.24h) 30 mg PO DAILY [facility] Last Admin: 10/31/21 09:43 Dose: 30 mg Lisinopril (Lisinopril 5 Mg Tab) 5 mg PO DAILY [facility] Last Admin: 10/31/21 09:43 Dose: 5 mg Metoprolol Succinate (Metoprolol Succinate (Er) 50 Mg Tab.Er.24h) 50 mg PO DAILY [facility] Last Admin: 10/31/21 09:43 Dose: 50 mg Miscellaneous Information (Potassium Replacement Protocol 1 Each Misc) 1 each MISCELLANE DAILY PRN; Protocol PRN Reason: Per Protocol Miscellaneous Information (Rx Info: Iv Contrast Was Given 1 Each Misc) 1 each MISCELLANE DAILY PRN PRN Reason: Per Protocol Stop: 11/01/21 11:39 Naloxone HCl (Naloxone 0.4 Mg/Ml 1 Ml Vial) 0.2 mg IV Q2M PRN PRN Reason: Opioid Reversal Nicotine (Nicotine 21mg/24hr Patch) 1 patch TRANSDERM DAILY [facility] Last Admin: 10/31/21 09:43 Dose: 1 patch Nitroglycerin (Nitroglycerin Sl Tabs 0.4 Mg Tab) 0.4 mg SUBLINGUAL Q5M PRN PRN Reason: Chest Pain Pantoprazole Sodium (Pantoprazole 40 Mg Tablet) 40 mg PO AC-BID [facility] Last Admin: 10/31/21 09:42 Dose: 40 mg Tamsulosin HCl (Tamsulosin 0.4 Mg Cap.Er.24h) 0.4 mg PO DAILY [facility] Last Admin: 10/31/21 09:42 Dose: 0.4 mg On examination: VITAL SIGNS: 98.2, 73, 17, 122/83, 96% room air GENERAL APPEARANCE: , propped up in bed , comfortable HEENT: Normal external appearance of nose and ear. Oral cavity normal EYES: Pupils equal. Conjunctiva normal. NECK: JVD not raised. Mass not palpable. RESPIRATORY: Respiratory effort normal. Lungs decreased breath sounds CARDIOVASCULAR: First and second sounds normal. No edema. ABDOMEN: Soft. Liver and spleen not palpable. No tenderness. No mass palpable. PSYCHIATRY: Alert and oriented x3. Mood and affect normal. INVESTIGATIONS, reviewed in the clinical context: October 31: WBC 7.3 hemoglobin 15 potassium 3.5 creatinine 0.49 White count 9.2 hemoglobin 14.8 platelets 220 potassium 3.4 BUN 9 creatinine 0.63 Troponin I 0.049, 0.054, 0.04 date LDL 78 triglycerides 249 HDL 29 COVID 19: Not detected 2-D echocardiogram: Normal motion abnormality. EF 55%. Chest CTA: Negative for PE Assessment and plan: -Acute non-STEMI, possibly plaque rupture Aspirin, Lipitor, Plavix -Nonobstructive CAD by cardiac cath Aspirin Lipitor, Toprol-XL -BPH Flomax 0.4 mg daily -GERD Prevacid -Chronic nicotine dependence, cigarette smoker Nicotine patch -Essential hypertension Zestril, Norvasc -Hyperlipidemia Lipitor Increase activity as tolerated. Plavix and Toprol-XL added by cardiology today. Discussed with patient and .
[2021-10-31] MEDS: NITROGLYCERIN SL TABS 0.4 MG TAB SUBLINGUAL PRN ×2 (15:46→16:02)
[2021-10-31] MEDS: MORPHINE SULFATE 2 MG/ML SYRINGE IVP PRN (16:06)
[2021-10-31] MEDS: NITROGLYCERIN-D5W PMX 50 MG in DEXTROSE/WATER 1 250ML.BAG IV SCH (17:37)
[2021-10-31] MEDS: ATORVASTATIN 40 MG TAB PO SCH (20:49)
[2021-11-01] MEDS: PANTOPRAZOLE 40 MG TABLET PO SCH ×2 (06:25→18:34)
[2021-11-01] MEDS: ASPIRIN 81 MG PO SCH (08:28)
[2021-11-01] MEDS: TAMSULOSIN 0.4 MG CAP.ER.24H PO SCH (08:28)
[2021-11-01] MEDS: CLOPIDOGREL 75 MG TAB PO SCH (08:28)
[2021-11-01] MEDS: lisinopriL 5 MG TAB PO SCH (08:28)
[2021-11-01] MEDS: amLODIPine 5 MG TAB PO SCH (08:28)
[2021-11-01] MEDS: METOPROLOL SUCCINATE (ER) 50 MG TAB.ER.24H PO SCH (08:28)
[2021-11-01] MEDS: NICOTINE 21MG/24HR PATCH TRANSDERM SCH (08:28)
[2021-11-01] MEDS: SODIUM CHLORIDE 0.9% 1,000 ML in EMPTY BAG 1 BAG IV SCH (10:22)
[2021-11-01] MEDS ORDERED: ASPIRIN 81 MG PO STA (10:27)
--- NOTE | 2021-11-01 11:48 | P.PN ---
Subjective This is a pleasant 66-year-old male past medical history significant for hypertension, dyslipidemia, GERD, BPH, bladder cancer, tobacco dependence. He does not follow a cotton picker. We have been asked to see in consultation for chest pain. Patient presents to the emergency department with complaints of chest pain. Patient states saturday he helped his friend unpack a [employer]. Afterwards he went home, and began to have midsternal/left sided chest pain, radiating to his back. He states it was pressure discomfort and felt as if someone was stabbing his back. He had pain at rest and activity. No tenderness to his chest or back. He had relief with nitroglycerin ointment. He had associated shortness of breath. Denies any nausea, vomiting, lightheadedness, dizziness, diaphoresis, syncope or near syncope. He denies any history of CAD, [place], stroke or diabetes. He is a current every day smoker, smokes 1PPD. Denies any family history of heart disease. Patient underwent cardiac catheterization with Dr. Peng on 10/30 that revealed Intermediate two-vessel CAD involving the LCx and LAD with the LAD lesion appeared to be somewhat worse, Mildly elevated left-sided filling pressure 10/31 Patient seen and examined at bedside, no distress. He denies chest pain or shortness of breath. Blood pressure 147/85, heart rate 70, afebrile, saturations 98% room air. BUN 6, serum 0.4. Echocardiogram revealed EF of 55%, mild LVH, no significant wall motion or valvular abnormalities 11/01 Yesterday afternoon patient with increasing left side sharp chest discomfort with radiation to his left arm. He was short of breath. He was hypertensive BP 150s/80s. EKG was performed with no acute changes. He was started on IV Nitro drip with improvement in his symptoms. Patient seen and examined at bedside, he had no further chest pain or shortness of breath. Vital signs are stable. PHYSICAL EXAMINATION Vitals reviewed CONSTITUTIONAL: No apparent distress. HEENT: Neck Supple. No JVD. No carotid bruit. CHEST EXAMINATION: Lungs are clear to auscultation. No chest wall tenderness is noted on palpation or with deep breathing. HEART EXAMINATION: Regular rate and rhythm. S1, S2 heard. No murmurs, gallops or rub. ABDOMEN: Soft, nontender. Positive bowel sounds. EXTREMITIES: 2+ peripheral pulses, no lower extremity edema and no calf tenderness. SKIN: Right radial cath site, clean dry intact, no hematoma NEUROLOGIC EXAMINATION: Patient is awake, alert and oriented x3. ASSESSMENT Chest pain and mildly elevated troponin, concerning for NSTEMI Coronary artery disease, intermediate disease involving the LCx and LAD. Tobacco dependence Hypertension Dyslipidemia GERD BPH PLAN Plan for patient to be taken back to the golf course laborer with Dr. Peng for possible PCI Keep patient NPO I have discussed the risks, benefits and alternative therapies for the above- mentioned procedure and for both sedation/analgesia as well as necessary blood product administration, if indicated, as they pertain to this patient. The patient has indicated understanding and acceptance of the risks and procedures discussed. Questions have been answered appropriately and he is agreeable to move forward with the above-stated procedure. Continue dual antiplatelet therapy with aspirin and statin Metoprolol succinate 50mg daily Continue statin, amlodipine, and lisinopril Further recommendations based on clinical course Nurse practitioner note has been reviewed by physician. Signing provider agrees with the documented findings, assessment, and plan of care. Objective - Vital Signs Vital signs: Vital Signs Temp 98.0 F 11/01/21 00:41 Pulse 63 11/01/21 00:41 Resp 19 11/01/21 00:41 BP 131/70 11/01/21 00:41 Pulse Ox 94 L 11/01/21 07:55 FiO2 21 10/31/21 19:44 Intake & Output 10/31/21 11/01/21 11/01/21 18:59 06:59 18:59 Intake Total 480 Balance 480 Intake: Oral 480 Other: Voiding Method Toilet Toilet Urinal Urinal # Voids 3 2 - Labs CBC & Chem 7: 10/31/21 08:13 10/31/21 08:13 Labs: Abnormal Lab Results - Last 24 Hours (Table) 10/31/21 Range/Units 08:13 BUN 6 L (9-20) mg/dL Creatinine 0.49 L (0.66-1.25) mg/dL Glucose 249 H (74-99) mg/dL
[2021-11-01] MEDS: ATORVASTATIN 40 MG TAB PO SCH (20:28)
[2021-11-02] MEDS: SODIUM CHLORIDE 0.9% 1,000 ML in EMPTY BAG 1 BAG IV SCH ×2 (00:21→16:06)
[2021-11-02] MEDS: PANTOPRAZOLE 40 MG TABLET PO SCH ×2 (06:43→18:00)
[2021-11-02] MEDS ORDERED: HEPARIN SODIUM,PORCINE 10,000 UNIT in SODIUM CHLORIDE 0.9% 1,000 ML IRRIGATION PRN (07:00)
[2021-11-02] MEDS ORDERED: HEPARIN SODIUM,PORCINE 2,500 UNIT in SODIUM CHLORIDE 0.9% 250 ML IRRIGATION PRN (07:00)
[2021-11-02] MEDS: ASPIRIN 81 MG PO SCH (07:30)
[2021-11-02] MEDS ORDERED: IV FLUID CONTINUATION 500 ML IV ONE (07:51)
[2021-11-02] MEDS ORDERED: HEPARIN SODIUM 1,000 UN/ML (10ML VL) ONE (07:53)
[2021-11-02] MEDS ORDERED: VERAPAMIL 2.5 MG/ML 2 ML AMP ONE (07:54)
[2021-11-02] MEDS ORDERED: fentaNYL (PF) 50 MCG/ML 2 ML AMP ONE (08:10)
[2021-11-02] MEDS ORDERED: MIDAZOLAM 2 MG/2 ML VIAL IV ONE (08:12)
[2021-11-02] MEDS: fentaNYL (PF) 50 MCG/ML 2 ML AMP IV ONE ×2 (08:12→08:16)
[2021-11-02] MEDS: LIDOCAINE 1% INJ 10MG/ML (30 ML VIAL-PF) SQ ONE ×2 (08:12→08:16)
[2021-11-02] MEDS: HEPARIN SODIUM 1,000 UN/ML (10ML VL) IV ONE ×3 (08:27→08:49)
[2021-11-02] MEDS ORDERED: TICAGRELOR 90 MG TAB ONE (08:36)
[2021-11-02] MEDS ORDERED: TICAGRELOR 90 MG TAB PO ONE (08:37)
[2021-11-02] MEDS ORDERED: hydrALAZINE HCL 20 MG/ML 1 ML VIAL ONE (09:15)
[2021-11-02] MEDS ORDERED: hydrALAZINE HCL 20 MG/ML 1 ML VIAL IV ONE (09:16)
[2021-11-02] MEDS ORDERED: IOPAMIDOL-370 125ML BTL INJ ONE (09:22)
[2021-11-02] MEDS ORDERED: IOPAMIDOL-300 50ML BTL INJ ONE (09:23)
[2021-11-02] MEDS ORDERED: MAG HYDROX/AL HYDROX/SIMETH 30 ML CUP PO PRN (09:25)
[2021-11-02] MEDS ORDERED: NITROGLYCERIN SL TABS 0.4 MG TAB SUBLINGUAL PRN (09:25)
[2021-11-02] MEDS ORDERED: ATROPINE SULFATE 0.1 MG/ML 10ML SYRINGE IV PRN (09:25)
[2021-11-02] MEDS ORDERED: RX INFO: IV CONTRAST WAS GIVEN 1 EACH MISC MISCELLANE PRN (09:25)
[2021-11-02] MEDS ORDERED: ZOLPIDEM 5 MG TAB PO PRN (09:25)
[2021-11-02] MEDS ORDERED: SODIUM CHLORIDE 0.9% 1,000 ML in EMPTY BAG 1 BAG IV SCH (09:30)
--- NOTE | 2021-11-02 09:32 | P.PCN ---
Date of Procedure: 11/02/21 Operative Findings: PERCUTANEOUS CORONARY INTERVENTION Performing physician Rinku Peng M.D. Procedure Performed: 1. Successful stenting of the mid left circumflex using 2.5 x 38 mm Xience drug- eluting stent with an excellent angiographic results. 2. Successful stending of the proximal LAD using 3.5 x 38 mm Xience drug-eluting stent with an excellent angiographic result. 3. FFR of both the LAD and LCx 4. Intravascular ultrasound of the LAD 5. Right common femoral artery and Indication: This is a 66-year-old gentleman who presented to the hospital with chest discomfort and ruled in for acute coronary event. He underwent a heart catheterization and that revealed intermediate 2 vessels CAD. Initially he was treated medically but because he continues to have a chest discomfort resolved with nitroglycerin a heart catheterization with FFR of the LCx and LAD advice. Approach: Right common femoral artery Complications: None Level of Sedation: Moderate with a sedation length of 71 minute Procedure Discussion: After obtaining an informed consent the patient was brought to the cardiac lab tester. Initially attempting accessing the right radial artery was unsuccessful. After that I accessed the right common femoral artery using micropuncture technique, the micropuncture wire passed easily then I placed a 6-Tamazight sheath. At that point anticoagulation was initiated using heparin with continuous ACT monitoring throughout the case. Subsequently and after zeroing the Doppler wire and equalizing between the Doppler wire and the guiding catheter which was JL4 guiding catheter we did an FFR of both the LAD and LCx. FFR of the LAD came in to be an 0.71 and FFR of the LCx came in to be 0.75. At that point I decided to intervene on both. I did balloon angioplasty of the LCx over the Doppler wire using 2.25 mm balloon. Subsequently a stent to the left circumflex using 2.5 x 38 mm stent where the stent was positioned under fluoroscopy guidance and deployed under its nominal pressure. The following angiogram showed good angiographic results. After that I did wire the LAD using a run-through wire. Subsequently I did balloon angioplasty of the LAD. Before balloon angioplasty of the LAD I did intravascular ultrasound which showed a diameter of about 3.5- 3.75 mm. At that point balloon angioplasty was performed using 30 mm balloon before I deployed 3.5 x 38 mm another drug-eluting stent where the stent was positioned under fluoroscopy guidance and deployed under 12 caren for 20 seconds. Postdilatation was performed using 3.75 mm balloon. The following angiogram showed an area proximal to the stent in the LAD. Further investigation was performed using angiogram 4 multiple views and initially the first impression was dissection but after multiple views it showed that with it seems to be a b ranch coming from the proximal LAD superiorly given the impression off dissection. For that reason and because the patient had PREMA-3 flow and was asymptomatic and hemodynamically stable with decided to treat that medically. By the end I did selective right common femoral artery angiogram. The procedure was completed without any complication Postprocedure Management: 1. dual antiplatelet therapy using aspirin and Brilinta for 12 months 2. Aggressive cholesterol control 3. Risk factors modification
[2021-11-02] MEDS: NITROGLYCERIN-D5W PMX 50 MG in DEXTROSE/WATER 1 250ML.BAG IV SCH ×2 (10:00→17:18)
[2021-11-02] MEDS: NICOTINE 21MG/24HR PATCH TRANSDERM SCH (10:08)
[2021-11-02] MEDS: METOPROLOL SUCCINATE (ER) 50 MG TAB.ER.24H PO SCH (10:08)
[2021-11-02] MEDS: CLOPIDOGREL 75 MG TAB PO SCH (10:08)
[2021-11-02] MEDS: TAMSULOSIN 0.4 MG CAP.ER.24H PO SCH (10:08)
[2021-11-02] MEDS: MORPHINE SULFATE 2 MG/ML SYRINGE IVP PRN ×3 (10:09→22:32)
[2021-11-02] MEDS: lisinopriL 5 MG TAB PO SCH (10:09)
[2021-11-02] MEDS: amLODIPine 5 MG TAB PO SCH (10:09)
--- NOTE | 2021-11-02 10:17 | P.PN ---
Progress Note - Text Progress Note Date: 11/01/21 Hospital course: Admitted with chest pain. [place] to be possible non-STEMI. October 30: Patient's care was assumed by me today. Underwent cardiac catheterization. [place] of intermediate to was in CAD involving the left circumflex and LAD. Decision made to do medical management. Patient and the bed. at the bedside. Currently no chest pain or shortness of breath. Patient is a smoker. October 31: Did walk in the hallway. No chest pain or shortness of breath. Discussed with the patient and . Plavix added today. Toprol-XL added today. November 01: Patient yesterday started having chest pain. Rather protracted. Was placed on nitroglycerin drip overnight. Cardiology Planning cardiac catheterization. Currently patient feeling better. Active Medications Acetaminophen (Acetaminophen Tab 325 Mg Tab) 325 mg PO Q6HR PRN PRN Reason: Fever and/ or Pain Last Admin: 10/30/21 17:53 Dose: 325 mg Alprazolam (Alprazolam 0.25 Mg Tab) 0.25 mg PO Q6HR PRN PRN Reason: Mild Anxiety Last Admin: 10/31/21 00:07 Dose: 0.25 mg Alprazolam (Alprazolam 0.5 Mg Tab) 0.5 mg PO Q6HR PRN PRN Reason: Moderate Anxiety Amlodipine Besylate (Amlodipine 5 Mg Tab) 5 mg PO DAILY [facility] Last Admin: 11/01/21 08:28 Dose: 5 mg Aspirin (Aspirin 81 Mg) 81 mg PO DAILY [facility] Last Admin: 11/01/21 08:28 Dose: 81 mg Atorvastatin Calcium (Atorvastatin 40 Mg Tab) 40 mg PO HS [facility] Last Admin: 10/31/21 20:49 Dose: 40 mg Clopidogrel Bisulfate (Clopidogrel 75 Mg Tab) 75 mg PO DAILY [facility] Last Admin: 11/01/21 08:28 Dose: 75 mg Nitroglycerin/Dextrose 50 mg/ (IV Solution) 250 mls @ 1.5 mls/hr IV .Q24H [facility]; Protocol Last Admin: 10/31/21 17:37 Dose: 5 mcg/min, 1.5 mls/hr Heparin Sodium (Porcine) 10, (000 unit/ Sodium Chloride) 1,001 mls @ 999 mls/hr IRRIGATION ONCE PRN PRN Reason: INTRA-OP Stop: 11/02/21 23:00 Heparin Sodium (Porcine) 2,500 (unit/ Sodium Chloride) 250.5 mls @ 250 mls/hr IRRIGATION ONCE PRN PRN Reason: INTRA-OP Stop: 11/02/21 23:00 Sodium Chloride 1,000 ml/ IV (Solution) 1,000 mls @ 78.925 mls/hr IV .[id number] [facility] Last Admin: 11/01/21 10:22 Dose: 78.925 mls/hr Lisinopril (Lisinopril 5 Mg Tab) 5 mg PO DAILY [facility] Last Admin: 11/01/21 08:28 Dose: 5 mg Metoprolol Succinate (Metoprolol Succinate (Er) 50 Mg Tab.Er.24h) 50 mg PO DAILY [facility] Last Admin: 11/01/21 08:28 Dose: 50 mg Miscellaneous Information (Potassium Replacement Protocol 1 Each Misc) 1 each MISCELLANE DAILY PRN; Protocol PRN Reason: Per Protocol Morphine Sulfate (Morphine Sulfate 2 Mg/Ml Syringe) 2 mg IVP Q4HR PRN PRN Reason: Pain/Discomfort Last Admin: 10/31/21 16:06 Dose: 2 mg Naloxone HCl (Naloxone 0.4 Mg/Ml 1 Ml Vial) 0.2 mg IV Q2M PRN PRN Reason: Opioid Reversal Nicotine (Nicotine 21mg/24hr Patch) 1 patch TRANSDERM DAILY [facility] Last Admin: 11/01/21 08:28 Dose: 1 patch Nitroglycerin (Nitroglycerin Sl Tabs 0.4 Mg Tab) 0.4 mg SUBLINGUAL Q5M PRN PRN Reason: Chest Pain Last Admin: 10/31/21 16:02 Dose: 0.4 mg Pantoprazole Sodium (Pantoprazole 40 Mg Tablet) 40 mg PO AC-BID [facility] Last Admin: 11/01/21 18:34 Dose: Not Given Tamsulosin HCl (Tamsulosin 0.4 Mg Cap.Er.24h) 0.4 mg PO DAILY [facility] Last Admin: 11/01/21 08:28 Dose: 0.4 mg On examination: VITAL SIGNS: 97.9, 68, 16, 1:30/79, 95% room air GENERAL APPEARANCE: , Laying in bed, comfortable HEENT: Normal external appearance of nose and ear. Oral cavity normal EYES: Pupils equal. Conjunctiva normal. NECK: JVD not raised. Mass not palpable. RESPIRATORY: Respiratory effort normal. Lungs decreased breath sounds CARDIOVASCULAR: First and second sounds normal. No edema. ABDOMEN: Soft. Liver and spleen not palpable. No tenderness. No mass palpable. PSYCHIATRY: Alert and oriented x3. Mood and affect normal. INVESTIGATIONS, reviewed in the clinical context: October 31: WBC 7.3 hemoglobin 15 potassium 3.5 creatinine 0.49 White count 9.2 hemoglobin 14.8 platelets 220 potassium 3.4 BUN 9 creatinine 0.63 Troponin I 0.049, 0.054, 0.04 date LDL 78 triglycerides 249 HDL 29 COVID 19: Not detected 2-D echocardiogram: Normal motion abnormality. EF 55%. Chest CTA: Negative for PE Assessment and plan: -Post infarct angina: Slow to respond IV nitroglycerin drip. Plan for cardiac catheterization -Acute non-STEMI, possibly plaque rupture Aspirin, Lipitor, Plavix -Nonobstructive CAD by cardiac cath Aspirin Lipitor, Toprol-XL -BPH Flomax 0.4 mg daily -GERD Prevacid -Chronic nicotine dependence, cigarette smoker Nicotine patch -Essential hypertension Zestril, Norvasc -Hyperlipidemia Lipitor Continue current medications. On IV nitroglycerin. For cardiac catheterization. Discussed with the patient. May have to be done tomorrow because of scheduling issues.
[2021-11-02] MEDS ORDERED: lisinopriL 5 MG TAB PO STA (10:45)
[2021-11-02 12:07] VITALS: BMI 28.0
[2021-11-02 12:36] LABS: Basophils % (A) 0 %; Eosinophils # (A) 0.1 k/uL (0-0.7); Eosinophils % (A) 1 %; HCT 42.5 % (39.0-53.0); HGB 14.2 gm/dL (13.0-17.5); Lymphocytes # (A) 1.4 k/uL (1.0-4.8); Lymphocytes % (A) 15 %; MCH 31.8 pg (25.0-35.0); MCHC 33.3 g/dL (31.0-37.0); MCV 95.3 fL (80.0-100.0); Mean Platelet Volume 7.2; Monocytes # (A) 0.5 k/uL (0-1.0); Monocytes % (A) 5 %; Neutrophils # (A) 7.1 k/uL (1.3-7.7); Neutrophils % (A) 77 %; Platelet Count 233 k/uL (150-450); RBC 4.47 m/uL (4.30-5.90); RDW 12.9 % (11.5-15.5); WBC 9.1 k/uL (3.8-10.6)
--- NOTE | 2021-11-02 12:43 | P.PN ---
Progress Note - Text Progress Note Date: 11/02/21 Hospital course: Admitted with chest pain. [place] to be possible non-STEMI. October 30: Patient's care was assumed by me today. Underwent cardiac catheterization. [place] of intermediate to was in CAD involving the left circumflex and LAD. Decision made to do medical management. Patient and the bed. at the bedside. Currently no chest pain or shortness of breath. Patient is a smoker. October 31: Did walk in the hallway. No chest pain or shortness of breath. Discussed with the patient and . Plavix added today. Toprol-XL added today. November 01: Patient yesterday started having chest pain. Rather protracted. Was placed on nitroglycerin drip overnight. Cardiology Planning cardiac catheterization. Currently patient feeling better. November 02: Patient underwent cardiac catheterization again today. Received a stent to the left circumflex and proximal LAD. Patient complaining of back pain. He received previous steroid injections by Dr. Wray. Dr. Pak from orthopedics consulted. Discussed with the patient and at the bedside. Active Medications Acetaminophen (Acetaminophen Tab 325 Mg Tab) 325 mg PO Q6HR PRN PRN Reason: Fever and/ or Pain Last Admin: 10/30/21 17:53 Dose: 325 mg Al Hydroxide/Mg Hydroxide (Mag Hydrox/Al Hydrox/Simeth 30 Ml Cup) 30 ml PO Q4HR PRN PRN Reason: Heartburn Alprazolam (Alprazolam 0.25 Mg Tab) 0.25 mg PO Q6HR PRN PRN Reason: Mild Anxiety Last Admin: 10/31/21 00:07 Dose: 0.25 mg Alprazolam (Alprazolam 0.5 Mg Tab) 0.5 mg PO Q6HR PRN PRN Reason: Moderate Anxiety Amlodipine Besylate (Amlodipine 5 Mg Tab) 5 mg PO DAILY [facility] Last Admin: 11/02/21 10:09 Dose: 5 mg Aspirin (Aspirin 81 Mg) 81 mg PO DAILY [facility] Last Admin: 11/02/21 07:30 Dose: 81 mg Atorvastatin Calcium (Atorvastatin 40 Mg Tab) 40 mg PO HS [facility] Last Admin: 11/01/21 20:28 Dose: 40 mg Atropine Sulfate (Atropine Sulfate 0.1 Mg/Ml 10ml Syringe) 0.5 mg IV ONCE PRN PRN Reason: Symptomatic Bradycardia Chlorthalidone (Chlorthalidone 25 Mg Tab) 25 mg PO DAILY [facility] Clopidogrel Bisulfate (Clopidogrel 75 Mg Tab) 75 mg PO DAILY [facility] Last Admin: 11/02/21 10:08 Dose: 75 mg Nitroglycerin/Dextrose 50 mg/ (IV Solution) 250 mls @ 1.5 mls/hr IV .Q24H [facility]; Protocol Last Admin: 11/02/21 10:00 Dose: Not Given Heparin Sodium (Porcine) 10, (000 unit/ Sodium Chloride) 1,001 mls @ 999 mls/hr IRRIGATION ONCE PRN PRN Reason: INTRA-OP Stop: 11/02/21 23:00 Heparin Sodium (Porcine) 2,500 (unit/ Sodium Chloride) 250.5 mls @ 250 mls/hr IRRIGATION ONCE PRN PRN Reason: INTRA-OP Stop: 11/02/21 23:00 Sodium Chloride 1,000 ml/ IV (Solution) 1,000 mls @ 78.925 mls/hr IV .[id number] [facility] Last Admin: 11/02/21 00:21 Dose: 78.925 mls/hr Sodium Chloride 1,000 ml/ IV (Solution) 1,000 mls @ 75 mls/hr IV .[id number] [facility] Stop: 11/02/21 14:31 Lisinopril (Lisinopril 10 Mg Tab) 10 mg PO DAILY [facility] Metoprolol Succinate (Metoprolol Succinate (Er) 50 Mg Tab.Er.24h) 50 mg PO DAILY [facility] Last Admin: 11/02/21 10:08 Dose: 50 mg Miscellaneous Information (Potassium Replacement Protocol 1 Each Misc) 1 each MISCELLANE DAILY PRN; Protocol PRN Reason: Per Protocol Miscellaneous Information (Rx Info: Iv Contrast Was Given 1 Each Misc) 1 each MISCELLANE DAILY PRN PRN Reason: Per Protocol Stop: 11/04/21 09:25 Morphine Sulfate (Morphine Sulfate 2 Mg/Ml Syringe) 2 mg IVP Q4HR PRN PRN Reason: Pain/Discomfort Last Admin: 11/02/21 10:09 Dose: 2 mg Naloxone HCl (Naloxone 0.4 Mg/Ml 1 Ml Vial) 0.2 mg IV Q2M PRN PRN Reason: Opioid Reversal Nicotine (Nicotine 21mg/24hr Patch) 1 patch TRANSDERM DAILY [facility] Last Admin: 11/02/21 10:08 Dose: 1 patch Nitroglycerin (Nitroglycerin Sl Tabs 0.4 Mg Tab) 0.4 mg SUBLINGUAL Q5M PRN PRN Reason: Chest Pain Last Admin: 10/31/21 16:02 Dose: 0.4 mg Pantoprazole Sodium (Pantoprazole 40 Mg Tablet) 40 mg PO AC-BID [facility] Last Admin: 11/02/21 06:43 Dose: 40 mg Tamsulosin HCl (Tamsulosin 0.4 Mg Cap.Er.24h) 0.4 mg PO DAILY [facility] Last Admin: 11/02/21 10:08 Dose: 0.4 mg Ticagrelor (Ticagrelor 90 Mg Tab) 90 mg PO BID [facility]; Protocol Zolpidem Tartrate (Zolpidem 5 Mg Tab) 5 mg PO HS PRN PRN Reason: Insomnia On examination: VITAL SIGNS: 97.9, 64, 18, 145/77, 100% on 2 L GENERAL APPEARANCE: , Laying in bed, awake HEENT: Normal external appearance of nose and ear. Oral cavity normal EYES: Pupils equal. Conjunctiva normal. NECK: JVD not raised. Mass not palpable. RESPIRATORY: Respiratory effort normal. Lungs decreased breath sounds CARDIOVASCULAR: First and second sounds normal. No edema. ABDOMEN: Soft. Liver and spleen not palpable. No tenderness. No mass palpable. PSYCHIATRY: Alert and oriented x3. Mood and affect normal. INVESTIGATIONS, reviewed in the clinical context: November 02: Obesity 9.1 hemoglobin 14.2 October 31: WBC 7.3 hemoglobin 15 potassium 3.5 creatinine 0.49 White count 9.2 hemoglobin 14.8 platelets 220 potassium 3.4 BUN 9 creatinine 0.63 Troponin I 0.049, 0.054, 0.04 date LDL 78 triglycerides 249 HDL 29 COVID 19: Not detected 2-D echocardiogram: Normal motion abnormality. EF 55%. Chest CTA: Negative for PE Assessment and plan: -CAD now with stent to the left circumflex and LAD. Patient underwent intraoperative FFR and IUS. 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 Has received steroid injections. Currently. Because of lying flat. Patient [facility]. consulted.
[2021-11-02 13:14] LABS: African American GFR (CKD) >90 (>60 ml/min/1.73 sqM); Anion Gap 11 mmol/L; Blood Urea Nitrogen 4 mg/dL (9-20); Calcium 8.2 mg/dL (8.4-10.2); Carbon Dioxide 26 mmol/L (22-30); Chloride 99 mmol/L (98-107); Glucose 224 mg/dL (74-99); Non-African American GFR(CKD) >90 (>60 ml/min/1.73 sqM); Potassium 3.2 mmol/L (3.5-5.1); Sodium 136 mmol/L (137-145)
[2021-11-02] MEDS: CHLORTHALIDONE 25 MG TAB PO SCH (15:09)
[2021-11-02] MEDS ORDERED: CYCLOBENZAPRINE 5 MG TAB PO PRN (15:22)
--- NOTE | 2021-11-02 15:39 | P.CNOR ---
History of Present Illness - [facility] Consult date: 11/02/21 Consult reason: low back pain History of present illness: Patient is a 66-year-old male who has been admitted to [facility] with a cardiac workup over the last 5 days. Initially medical treatment was attempted, patient's symptoms hadn't improved significantly. Patient underwent a cardiac catheterization earlier today. Since returning from the procedure, patient has noticed increase in his low back pain. Patient normally follows with [facility], he is seen both her hand surgeon and one other pain management doctors. He actually received an epidural shot about 3 weeks. Patient had been getting great relief from the injection up until today. Apparently their service was consulted initially, our orthopedic service was then consulted for evaluation. Patient was evaluated at bedside today, he is resting comfortably, he has multiple family members present. Patient states that he wasinstructed he would actually flap for about 8 hours after his procedure. patient states that he normally has quite a bit of back pain when he lies flat. With his restrictions, R exam is very limited at this time. He states that he has been evaluated by both orthopedic spine surgeon in the pain management doctor and associates. He has had a previous MRI of his lumbar spine. He states he has some degenerative disc disease throughout the lumbar spine. Patient utilizes no assistive devices for ambulation. He currently takes no medications for his back pain. He states that he notices no significant weakness in his lower extremities. He denies any paresthesias of the lower extremities. He denies any bowel or bladder changes. He states that the epidural shot that was done about 3 weeks ago was providing him with significant relief. Review of Systems Constitutional: Reports as per [facility] Past Medical History Past Medical History: Cancer Additional Past Medical History / Comment(s): [place] KNOTT History of Any Multi-Drug Resistant Organisms: None Reported Past Surgical History: No Surgical Hx Reported Past Anesthesia/Blood Transfusion Reactions: No Reported Reaction Smoking Status: Current every day smoker Past Alcohol Use History: Daily Past Drug Use History: None Reported - Past Family History Father History Unknown: Yes Mother History Unknown: Yes Medications and Allergies Home Medications Medication Instructions Recorded Confirmed Type Lansoprazole [Prevacid 24Hr] 30 mg PO DAILY 10/29/21 10/29/21 History Simvastatin [Zocor] 20 mg PO HS 10/29/21 10/29/21 History Tamsulosin [Flomax] 0.4 mg PO DAILY 10/29/21 10/29/21 History amLODIPine [Norvasc] 5 mg PO DAILY 10/29/21 10/29/21 History Allergies Allergy/AdvReac Type Severity Reaction Status Date / Time No Known Allergies Allergy Verified 10/29/21 13:59 Physical Examination Exam is very limited a recent procedure and current restrictions General orthopedic exam: No obvious open lesions or sores are visualized throughout the bilateral lower extremities, no obvious muscle wasting appreciated His sensation to light touch throughout the bilateral lower extremities was intact Results - Labs Labs: Abnormal Lab Results - Last 24 Hours (Table) 11/02/21 Range/Units 12:09 Sodium 136 L (137-145) mmol/L Potassium 3.2 L (3.5-5.1) mmol/L BUN 4 L (9-20) mg/dL Creatinine 0.57 L (0.66-1.25) mg/dL Glucose 224 H (74-99) mg/dL Calcium 8.2 L (8.4-10.2) mg/dL H & H 10/29/21 10/30/21 10/31/21 Range/Units 11:57 02:59 08:13 Hgb 15.7 14.8 15.0 (13.0-17.5) gm/dL Hct 45.8 43.9 44.5 (39.0-53.0) % 11/02/21 Range/Units 12:09 Hgb 14.2 (13.0-17.5) gm/dL Hct 42.5 (39.0-53.0) % Coagulation 10/29/21 10/29/21 Range/Units 11:57 13:20 INR 1.0 1.1 (<1.2) Result Diagrams: 11/02/21 12:09 11/02/21 12:09 Assessment and Plan Assessment: Low back pain History of previous lumbar epidural injections Recent cardiac event, status post cardiac catheterization stent placement Other medical comorbidities Plan: Due to patient's restrictions with his recent procedure, we will perform a more detailed exam on 11/03/2021 Taking into consideration the procedure that was performed today and his known back pain, this is likely an exacerbation. Patient has had no recent trauma or changes in activity that would have caused an increase in pain. Especially considering that the epidural injection has been providing him with good relief Pain control, adding Flexeril 5 mg twice a day as needed for muscle spasms. Int ernal medicine recommendations with regards to possible narcotic pain use Weightbearing status pending cardiac recommendations for recent procedure Other medical specialty recommendations Further recommendations to follow Time with Patient: Less than 30
[2021-11-02 16:10] LABS: Appearance,Urine Clear (Clear); Bilirubin,Urine Negative (Negative); Blood,Urine Negative (Negative); Color,Urine Yellow; Glucose,Urine (UA) 2+ (Negative); Ketones,Urine 1+ (Negative); Leukocyte Esterase,Urine Negative (Negative); Nitrite,Urine Negative (Negative); PH, Urine 6.5 (5.0-8.0); Protein,Urine Negative (Negative); Urobilinogen,Urine <2.0 mg/dL (<2.0)
[2021-11-02] MEDS: ATORVASTATIN 40 MG TAB PO SCH (20:04)
[2021-11-02] MEDS: POTASSIUM CHLORIDE ER 20 MEQ TAB.ER PO SCH ×2 (20:04→22:31)
[2021-11-03] MEDS: MORPHINE SULFATE 2 MG/ML SYRINGE IVP PRN ×2 (04:14→08:32)
[2021-11-03] MEDS: SODIUM CHLORIDE 0.9% 1,000 ML in EMPTY BAG 1 BAG IV SCH (04:15)
[2021-11-03] MEDS: PANTOPRAZOLE 40 MG TABLET PO SCH (06:17)
[2021-11-03] MEDS: amLODIPine 5 MG TAB PO SCH (08:23)
[2021-11-03] MEDS: TAMSULOSIN 0.4 MG CAP.ER.24H PO SCH (08:23)
[2021-11-03] MEDS: CHLORTHALIDONE 25 MG TAB PO SCH (08:23)
[2021-11-03] MEDS: ASPIRIN 81 MG PO SCH (08:23)
[2021-11-03] MEDS: CLOPIDOGREL 75 MG TAB PO SCH (08:23)
[2021-11-03] MEDS: NICOTINE 21MG/24HR PATCH TRANSDERM SCH (08:23)
[2021-11-03] MEDS: METOPROLOL SUCCINATE (ER) 50 MG TAB.ER.24H PO SCH (08:23)
[2021-11-03] MEDS ORDERED: lisinopriL 10 MG TAB PO SCH (09:00)
[2021-11-03] MEDS ORDERED: TICAGRELOR 90 MG TAB PO SCH (09:00)
[2021-11-03 12:11] VITALS: BP 115/63; PULSE 70; RESP 16; TEMP 98.1
--- NOTE | 2021-11-03 13:44 | P.PN ---
Subjective This is a pleasant 66-year-old male past medical history significant for hypertension, dyslipidemia, GERD, BPH, bladder cancer, tobacco dependence. 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 We have been asked to see in consultation for chest pain. Patient presents to the emergency department with complaints of chest pain. Patient states saturday he helped his friend unpack a [employer]. Afterwards he went home, and began to have midsternal/left sided chest pain, radiating to his back. He states it was pressure discomfort and felt as if someone was stabbing his back. He had pain at rest and activity. No tenderness to his chest or back. He had relief with nitroglycerin ointment. He had associated shortness of breath. Denies any nausea, vomiting, lightheadedness, dizziness, diaphoresis, syncope or near syncope. He denies any history of CAD, MA, stroke or diabetes. He is a current every day smoker, smokes 1PPD. Denies any family history of heart disease. Patient underwent cardiac catheterization with Dr. Peng on 10/30 that revealed Intermediate two-vessel CAD involving the LCx and LAD with the LAD lesion appeared to be somewhat worse, Mildly elevated left-sided filling pressure 10/31 Patient seen and examined at bedside, no distress. He denies chest pain or shortness of breath. Blood pressure 147/85, heart rate 70, afebrile, saturations 98% room air. BUN 6, serum 0.4. Echocardiogram revealed EF of 55%, mild LVH, no significant wall motion or valvular abnormalities 11/01 Yesterday afternoon patient with increasing left side sharp chest discomfort with radiation to his left arm. He was short of breath. He was hypertensive BP 150s/80s. EKG was performed with no acute changes. He was started on IV Nitro drip with improvement in his symptoms. Patient seen and examined at bedside, he had no further chest pain or shortness of breath. Vital signs are stable. 11/02-patient underwent cardiac catheterization with Dr. Peng FFR was performed on both LAD and LCx and patient underwent stenting to the mid left circumflex, stenting of the proximal LAD. 11/03 Patient seen and examined at bedside, no acute distress. He states that his s ymptoms have significantly improved. He denies any chest pain or shortness of breath. He is ambulating the halls without difficulty or symptoms. His vital signs are stable. PHYSICAL EXAMINATION Vitals reviewed CONSTITUTIONAL: No apparent distress. HEENT: Neck Supple. No JVD. No carotid bruit. CHEST EXAMINATION: Lungs are clear to auscultation. No chest wall tenderness is noted on palpation or with deep breathing. HEART EXAMINATION: Regular rate and rhythm. S1, S2 heard. No murmurs, gallops or rub. ABDOMEN: Soft, nontender. Positive bowel sounds. EXTREMITIES: 2+ peripheral pulses, no lower extremity edema and no calf tenderness. SKIN: Right radial cath site, clean dry intact, no hematoma, bruising noted. NEUROLOGIC EXAMINATION: Patient is awake, alert and oriented x3. ASSESSMENT Chest pain and mildly elevated troponin, concerning for NSTEMI Status post PCI to mid left circumflex and proximal LAD on 11/02/21 Coronary artery disease, intermediate disease involving the LCx and LAD. Tobacco dependence Hypertension Dyslipidemia GERD BPH PLAN From cardiology perspective, patient is to be discharged home. Continue dual antiplatelet therapy with aspirin and Brilinta Continue chlorthalidone, metoprolol succinate and lisinopril. Follow up outpatient with Dr. Peng in one week Nurse practitioner note has been reviewed by physician. Signing provider agrees with the documented findings, assessment, and plan of care. Objective - Vital Signs Vital signs: Vital Signs Temp 98.1 F 11/03/21 12:10 Pulse 70 11/03/21 12:10 Resp 16 11/03/21 12:10 BP 115/63 11/03/21 12:10 Pulse Ox 97 11/03/21 12:10 FiO2 21 10/31/21 19:44 Intake & Output 11/02/21 11/03/21 11/03/21 18:59 06:59 18:59 Intake Total 082.146 3903 180 Output Total 400 900 Balance -789.234 9634 180 Weight 78.925 kg Intake: IV 150 Intake, IV Titration 59.675 1000 Amount Nitroglycerin-D5w Pmx 50 59.675 mg In Dextrose/Water 1 250ml.bag @ 5 MCG/MIN 1.5 mls/hr IV .Q24H [facility] Rx#: [id number] Sodium Chloride 0.9% 1, 1000 000 ml In Empty Bag 1 bag @ 75 mls/hr IV .[id number] [facility] Rx#:[id number] Oral 970 180 Output: Urine 400 900 Other: Voiding Method Toilet Toilet Urinal Urinal - Labs CBC & Chem 7: 11/02/21 12:09 11/02/21 12:09 Labs: Abnormal Lab Results - Last 24 Hours (Table) 11/02/21 Range/Units 16:04 Ur Specific [place] 1.050 H (1.001-1.035) Urine Glucose (UA) 2+ H (Negative) Urine Ketones 1+ H (Negative)
--- NOTE | 2021-11-03 21:49 | P.DS ---
Providers Date of admission: 10/29/21 13:45 Expected date of discharge: 11/03/21 Attending physician: Tonio Arambula Consults: 10/29/21 13:44 Consult Physician Routine Consulting Provider: Rinku Peng Consult Reason/Comments: chest pain Do you want consulting provider notified?: Yes 11/02/21 09:25 Consult Physician Routine Consulting Provider: [facility] Consult Reason/Comments: Post Interventional Patient Do you want consulting provider notified?: Already Contacted 11/02/21 11:36 Consult Physician Routine Consulting Provider: Fabio Ha Consult Reason/Comments: back pain Do you want consulting provider notified?: Yes Primary care physician: Maximilian L [facility] Course: Hospital course: Admitted with chest pain. [place] to be possible non-STEMI. October 30: Patient's care was assumed by me today. Underwent cardiac catheterization. [place] of intermediate to was in CAD involving the left circumflex and LAD. Decision made to do medical management. Patient and the bed. at the bedside. Currently no chest pain or shortness of breath. Patient is a smoker. October 31: Did walk in the hallway. No chest pain or shortness of breath. Discussed with the patient and . Plavix added today. Toprol-XL added today. November 01: Patient yesterday started having chest pain. Rather protracted. Was placed on nitroglycerin drip overnight. Cardiology Planning cardiac catheterization. Currently patient feeling better. November 02: Patient underwent cardiac catheterization again today. Received a stent to the left circumflex and proximal LAD. Patient complaining of back pain. He received previous steroid injections by Dr. Wray. Dr. Pak from orthopedics consulted. Discussed with the patient and at the bedside. November 03: Up and about. No chronic symptoms. Cleared by currently. Patient to follow-up with this physiotherapy physician. Care was discussed with the patient. Questions answered. Discussion and discharge planning more than 35 minutes On examination: VITAL SIGNS: 98.1, 70, 16, 150s/63, 97% room air GENERAL APPEARANCE: , Comfortable HEENT: Normal external appearance of nose and ear. Oral cavity normal EYES: Pupils equal. Conjunctiva normal. NECK: JVD not raised. Mass not palpable. RESPIRATORY: Respiratory effort normal. Lungs decreased breath sounds CARDIOVASCULAR: First and second sounds normal. No edema. ABDOMEN: Soft. Liver and spleen not palpable. No tenderness. No mass palpable. PSYCHIATRY: Alert and oriented x3. Mood and affect normal. INVESTIGATIONS, reviewed in the clinical context: November 02: Obesity 9.1 hemoglobin 14.2 October 31: WBC 7.3 hemoglobin 15 potassium 3.5 creatinine 0.49 White count 9.2 hemoglobin 14.8 platelets 220 potassium 3.4 BUN 9 creatinine 0.63 Troponin I 0.049, 0.054, 0.04 date LDL 78 triglycerides 249 HDL 29 COVID 19: Not detected 2-D echocardiogram: Normal motion abnormality. EF 55%. Chest CTA: Negative for PE Assessment and plan: -CAD now with stent to the left circumflex and LAD. Patient underwent intraoperative FFR and IUS. Heel Padder Dr. Blackmon -Acute non-STEMI, possibly plaque rupture Aspirin, Lipitor, Plavix -BPH Flomax 0.4 mg daily -Chronic lumbar osteoarthritis. Follow-up with Dr. Wray-patient's er tech -GERD Prevacid -Chronic nicotine dependence, cigarette smoker Nicotine patch -Essential hypertension Zestril, Norvasc -Hyperlipidemia Lipitor Disposition: Home Patient Condition at Discharge: Fair Plan - Discharge Summary Discharge Rx Participant: No New Discharge Prescriptions: New Aspirin 81 mg PO DAILY #90 tab Ticagrelor [Brilinta] 90 mg PO BID #60 tab Chlorthalidone [Hygroton] 25 mg PO DAILY #90 tab Cyclobenzaprine [Flexeril] 5 mg PO BID PRN #30 tab PRN Reason: Muscle Spasm Acetaminophen Tab [Tylenol] 325 mg PO Q6HR PRN tab PRN Reason: Fever And/ Or Pain Nitroglycerin Sl Tabs [Nitrostat] 0.4 mg SUBLINGUAL Q5M PRN #25 tab PRN Reason: Chest Pain Metoprolol Succinate (ER) [Toprol XL] 50 mg PO DAILY #90 tab lisinopriL [Zestril] 10 mg PO DAILY #90 tab Nicotine 21Mg/24Hr Patch [Habitrol] 1 patch TRANSDERM DAILY #14 patch Continue Tamsulosin [Flomax] 0.4 mg PO DAILY Simvastatin [Zocor] 20 mg PO HS amLODIPine [Norvasc] 5 mg PO DAILY Lansoprazole [Prevacid 24Hr] 30 mg PO DAILY Discharge Medication List Lansoprazole [Prevacid 24Hr] 30 mg PO DAILY 10/29/21 [History] Simvastatin [Zocor] 20 mg PO HS 10/29/21 [History] Tamsulosin [Flomax] 0.4 mg PO DAILY 10/29/21 [History] amLODIPine [Norvasc] 5 mg PO DAILY 10/29/21 [History] Acetaminophen Tab [Tylenol] 325 mg PO Q6HR PRN tab 11/03/21 [Rx] Aspirin 81 mg PO DAILY #90 tab 11/03/21 [Rx] Chlorthalidone [Hygroton] 25 mg PO DAILY #90 tab 11/03/21 [Rx] Cyclobenzaprine [Flexeril] 5 mg PO BID PRN #30 tab 11/03/21 [Rx] Metoprolol Succinate (ER) [Toprol XL] 50 mg PO DAILY #90 tab 11/03/21 [Rx] Nicotine 21Mg/24Hr Patch [Habitrol] 1 patch TRANSDERM DAILY #14 patch 11/03/21 [Rx] Nitroglycerin Sl Tabs [Nitrostat] 0.4 mg SUBLINGUAL Q5M PRN #25 tab 11/03/21 [Rx] Ticagrelor [Brilinta] 90 mg PO BID #60 tab 11/03/21 [Rx] lisinopriL [Zestril] 10 mg PO DAILY #90 tab 11/03/21 [Rx] Follow up Appointment(s)/Referral(s): Rinku Peng MD [STAFF PHYSICIAN] - 1 Week (The office will call you with an appointment.) Maximilian Gibbs MD [Primary Care Provider] - 1-2 days (Please call to make an appointment.) Jose Wray MD [STAFF PHYSICIAN] - 1 Week (Please call to make an appointment.) Patient Instructions/Handouts: Angina (DC), Heart Attack (DC) Discharge Disposition: HOME SELF-CARE
== END 2021-11-03 13:54 | disposition home or self-care (01) | DRG 247 ==
LOC: EC 11:47 → 6NMEDSUR 13:45 → OBSVTOIN 13:45 → 3SCARD 15:32
PROVIDERS: ADMIT Hospitalist; ATTEND Hospitalist
PROC: 4A023N7 Measurement of Cardiac Sampling and Pressure, Left Heart, Percutaneous Approach (ICD-10-PCS; 2021-10-30)
PROC: B2111ZZ Fluoroscopy of Multiple Coronary Arteries using Low Osmolar Contrast (ICD-10-PCS; 2021-10-30)
PROC: 027135Z Dilation of Coronary Artery, Two Arteries with Two Drug-eluting Intraluminal Devices, Percutaneous Approach (ICD-10-PCS; principal; 2021-11-02 13:30)
PROC: 4A033BC Measurement of Arterial Pressure, Coronary, Percutaneous Approach (ICD-10-PCS; 2021-11-02 13:30)
DX: I21.4 Non-ST elevation (NSTEMI) myocardial infarction (principal); I23.7 Postinfarction angina; I10 Essential (primary) hypertension; E66.9 Obesity, unspecified; F17.210 Nicotine dependence, cigarettes, uncomplicated; E78.5 Hyperlipidemia, unspecified; K21.9 Gastro-esophageal reflux disease without esophagitis; R53.83 Other fatigue; N40.0 Benign prostatic hyperplasia without lower urinary tract symptoms; K29.60 Other gastritis without bleeding; I25.119 Atherosclerotic heart disease of native coronary artery with unspecified angina pectoris; M51.36 Other intervertebral disc degeneration, lumbar region; M47.816 Spondylosis without myelopathy or radiculopathy, lumbar region; Z20.822 Contact with and (suspected) exposure to COVID-19; I25.2 Old myocardial infarction; Z85.51 Personal history of malignant neoplasm of bladder; Z79.899 Other long term (current) drug therapy; Z68.28 Body mass index [BMI] 28.0-28.9, adult
CPT/HCPCS: 36415; 71046; 71275; 80048; 80053; 80061; 81003; 84484; 85025; 85610; 85730; 87635; 92978; 93005; 93306; 93458; 93571; 93572; 94760; 96365; 96366; 99291

== ENCOUNTER 2021-11-12 11:21 | Inpatient (IN) | payer BC ==
[2021-11-12] MEDS ORDERED: ASPIRIN 81 MG PO STA (11:40)
--- NOTE | 2021-11-12 11:43 | ED ---
General Adult HPI - General Chief complaint: Weakness Stated complaint: LACEY, dizzy,weakness Time Seen by Provider: 11/12/21 11:25 Source: patient, family, RN notes reviewed, old records reviewed Mode of arrival: wheelchair Limitations: no limitations - History of Present Illness Initial comments: This is a 66-year-old male with past medical history significant for a heart attack on and he had a stent placed at that time. Patient states this past Saturday he came in with chest pain he told me had heart attack and no further intervention was called for he did however have a heart catheterization and had a 70% blockage. Patient states about an hour prior to arrival today started having chest pressure and his causing him significant shortness of breath. Patient states on the way and he didn't pass out in the car and when he came to be vomited times one. Patient currently states he just chest pressure still feels short of breath even though he is oxygenating in the high 90s on room air. Patient has no longer any nausea. Patient denies any abdominal pain. Patient denies any new back pain. Patient denies lightheadedness at this time. Patient denies any recent fever chills or cough. Patient denies any swelling to the legs or calf tenderness. - Related Data Home Medications Medication Instructions Recorded Confirmed Lansoprazole [Prevacid 24Hr] 30 mg PO DAILY 10/29/21 10/29/21 Simvastatin [Zocor] 20 mg PO HS 10/29/21 10/29/21 Tamsulosin [Flomax] 0.4 mg PO DAILY 10/29/21 10/29/21 amLODIPine [Norvasc] 5 mg PO DAILY 10/29/21 10/29/21 Previous Rx's Medication Instructions Recorded Acetaminophen Tab [Tylenol] 325 mg PO Q6HR PRN tab 11/03/21 Aspirin 81 mg PO DAILY #90 tab 11/03/21 Chlorthalidone [Hygroton] 25 mg PO DAILY #90 tab 11/03/21 Cyclobenzaprine [Flexeril] 5 mg PO BID PRN #30 tab 11/03/21 Metoprolol Succinate (ER) [Toprol 50 mg PO DAILY #90 tab 11/03/21 XL] Nicotine 21Mg/24Hr Patch [Habitrol] 1 patch TRANSDERM DAILY #14 patch 11/03/21 Nitroglycerin Sl Tabs [Nitrostat] 0.4 mg SUBLINGUAL Q5M PRN #25 tab 11/03/21 Ticagrelor [Brilinta] 90 mg PO BID #60 tab 11/03/21 lisinopriL [Zestril] 10 mg PO DAILY #90 tab 11/03/21 Allergies Allergy/AdvReac Type Severity Reaction Status Date / Time No Known Allergies Allergy Verified 11/12/21 11:27 Review of Systems ROS Statement: Those systems with pertinent positive or pertinent negative responses have been documented in the HPI. ROS Other: All systems not noted in ROS Statement are negative. Past Medical History Past Medical History: Coronary Artery Disease (CAD), Cancer, Myocardial Infarction ([place]) Additional Past Medical History / Comment(s): Blaader NIKOS History of Any Multi-Drug Resistant Organisms: None Reported Past Surgical History: Heart Catheterization With Stent Past Anesthesia/Blood Transfusion Reactions: No Reported Reaction Past Psychological History: No Psychological Hx Reported Smoking Status: Current every day smoker Past Alcohol Use History: None Reported Past Drug Use History: None Reported - Past Family History Father History Unknown: Yes Mother History Unknown: Yes General Exam - General Exam Comments Initial Comments: GENERAL: Patient is well-developed and well-nourished. Patient is nontoxic and well- hydrated and is in moderate distress. ENT: Neck is soft and supple. No significant lymphadenopathy is noted. Oropharynx is clear. Moist mucous membranes. Neck has full range of motion without eliciting any pain. EYES: The sclera were anicteric and conjunctiva were pink and moist. Extraocular movements were intact and pupils were equal round and reactive to light. Eyelids were unremarkable. PULMONARY: Unlabored respirations. Good breath sounds bilaterally. No audible rales rhonchi or wheezing was noted. CARDIOVASCULAR: There is a regular rate and rhythm without any murmurs gallops or rubs. ABDOMEN: Soft and nontender with normal bowel sounds. SKIN: Skin is clear with no lesions or rashes and otherwise unremarkable. NEUROLOGIC: Patient is alert and oriented x3. Cranial nerves II through XII are grossly intact. Motor and sensory are also intact. Normal speech, volume and content. Symmetrical smile. MUSCULOSKELETAL: Normal extremities with adequate strength and full range of motion. No lower ex tremity swelling or edema. No calf tenderness. LYMPHATICS: No significant lymphadenopathy is noted PSYCHIATRIC: Normal psychiatric evaluation. Limitations: no limitations Course Vital Signs 11/12/21 11/12/21 11/12/21 11:24 11:27 11:45 Temperature 97.9 F Pulse Rate 92 74 Respiratory 20 84 H 24 Rate Blood Pressure 102/43 102/84 O2 Sat by Pulse 100 98 Oximetry 11/12/21 11/12/21 12:00 12:15 Temperature Pulse Rate 72 73 Respiratory 24 20 Rate Blood Pressure 114/75 127/117 O2 Sat by Pulse 98 99 Oximetry Medical Decision Making - Medical Decision Making EKG shows sinus rhythm at 87 bpm TX interval 250 QRS is 99 Q-T intervals 31 QTC is 425. Patient's EKG shows ST segment depression in leads V3 through V6. It was there in previous EKG. Patient's magnesium was less than 0.4 slightly placed the patient's magnesium with magnesium sulfate 4 g. Patient's potassium was low so I replaced the patient's potassium. Patient's sugar was high so I put him on a NovoLog sliding scale after I gave a dose of NovoLog in the emergency department. I spoke with Dr. Arambula he agreed to admit the patient and the patient wrote admitting orders he wanted to get a CT rule out PE I did so the CAT scan did not show any evidence of PE. - Lab Data Result diagrams: 11/12/21 11:39 11/12/21 11:39 Lab Results 11/12/21 11/12/21 11/12/21 Range/Units 11:39 11:39 11:39 WBC 11.0 H (3.8-10.6) k/uL RBC 4.59 (4.30-5.90) m/uL Hgb 14.6 (13.0-17.5) gm/dL Hct 39.5 (39.0-53.0) % MCV 86.0 D (80.0-100.0) fL MCH 31.8 (25.0-35.0) pg MCHC 36.9 (31.0-37.0) g/dL RDW 12.4 (11.5-15.5) % Plt Count 365 (150-450) k/uL MPV 7.7 Neutrophils % 64 % Lymphocytes % 25 % Monocytes % 7 % Eosinophils % 1 % Basophils % 0 % Neutrophils # 7.1 (1.3-7.7) k/uL Lymphocytes # 2.8 (1.0-4.8) k/uL Monocytes # 0.7 (0-1.0) k/uL Eosinophils # 0.1 (0-0.7) k/uL Basophils # 0.1 (0-0.2) k/uL Hyperchromasia Slight PT 12.0 (9.0-12.0) sec INR 1.1 (<1.2) APTT 25.2 (22.0-30.0) sec Sodium 133 L (137-145) mmol/L Potassium 2.7 L* (3.5-5.1) mmol/L Chloride 90 L (98-107) mmol/L Carbon Dioxide 23 (22-30) mmol/L Anion Gap 20 mmol/L BUN 21 H (9-20) mg/dL Creatinine 0.88 (0.66-1.25) mg/dL Est GFR (CKD-EPI)AfAm >90 (>60 ml/min/1.73 sqM) Est GFR (CKD-EPI)NonAf >90 (>60 ml/min/1.73 sqM) Glucose 455 H (74-99) mg/dL Plasma Lactic Acid Dewey (0.7-2.0) mmol/L Calcium 7.7 L (8.4-10.2) mg/dL Magnesium <0.4 L* (1.6-2.3) mg/dL Total Bilirubin 1.0 (0.2-1.3) mg/dL AST 21 (17-59) U/L ALT 24 (4-49) U/L Alkaline Phosphatase 80 (38-126) U/L Troponin I (0.000-0.034) ng/mL NT-Pro-B Natriuret Pep pg/mL Total Protein 7.3 (6.3-8.2) g/dL Albumin 4.5 (3.5-5.0) g/dL 11/12/21 11/12/21 11/12/21 Range/Units 11:39 11:39 11:39 WBC (3.8-10.6) k/uL RBC (4.30-5.90) m/uL Hgb (13.0-17.5) gm/dL Hct (39.0-53.0) % MCV (80.0-100.0) fL MCH (25.0-35.0) pg MCHC (31.0-37.0) g/dL RDW (11.5-15.5) % Plt Count (150-450) k/uL MPV Neutrophils % % Lymphocytes % % Monocytes % % Eosinophils % % Basophils % % Neutrophils # (1.3-7.7) k/uL Lymphocytes # (1.0-4.8) k/uL Monocytes # (0-1.0) k/uL Eosinophils # (0-0.7) k/uL Basophils # (0-0.2) k/uL Hyperchromasia PT (9.0-12.0) sec INR (<1.2) APTT (22.0-30.0) sec Sodium (137-145) mmol/L Potassium (3.5-5.1) mmol/L Chloride (98-107) mmol/L Carbon Dioxide (22-30) mmol/L Anion Gap mmol/L BUN (9-20) mg/dL Creatinine (0.66-1.25) mg/dL Est GFR (CKD-EPI)AfAm (>60 ml/min/1.73 sqM) Est GFR (CKD-EPI)NonAf (>60 ml/min/1.73 sqM) Glucose (74-99) mg/dL Plasma Lactic Acid Dewey 2.8 H* (0.7-2.0) mmol/L Calcium (8.4-10.2) mg/dL Magnesium (1.6-2.3) mg/dL Total Bilirubin (0.2-1.3) mg/dL AST (17-59) U/L ALT (4-49) U/L Alkaline Phosphatase (38-126) U/L Troponin I 0.013 (0.000-0.034) ng/mL NT-Pro-B Natriuret Pep 148 pg/mL Total Protein (6.3-8.2) g/dL Albumin (3.5-5.0) g/dL Critical Care Time Critical Care Time: Yes Total Critical Care Time: 35 Disposition Clinical Impression: Chest pain, Hypomagnesemia, Hypokalemia, Hyperglycemia, New onset type 2 diabetes mellitus Disposition: ADMITTED IP TO THIS [facility] Referrals: Maximilian Gibbs MD [Primary Care Provider] - 1-2 days Time of Disposition: 13:35
--- NOTE | 2021-11-12 12:01 | XR ---
EXAMINATION TYPE: XR chest 2V DATE OF EXAM: 11/12/2021 COMPARISON: 10/29/2021 HISTORY: Shortness of breath TECHNIQUE: Frontal and lateral views of the chest are obtained. FINDINGS: Scattered senescent parenchymal changes noted. Hyperinflation compatible with COPD. No evidence for infiltrate. No evidence for atelectasis. Heart size is stable. Mediastinal structures are stable and grossly unremarkable. No evidence for hilar prominence. Degenerative changes dorsal spine. IMPRESSION: 1. No evidence for acute pulmonary disease.
[2021-11-12 12:02] LABS: ALT 24 U/L (4-49); AST 21 U/L (17-59); African American GFR (CKD) >90 (>60 ml/min/1.73 sqM); Albumin 4.5 g/dL (3.5-5.0); Alkaline Phosphatase 80 U/L (38-126); Anion Gap 20 mmol/L; Blood Urea Nitrogen 21 mg/dL (9-20); Calcium 7.7 mg/dL (8.4-10.2); Carbon Dioxide 23 mmol/L (22-30); Chloride 90 mmol/L (98-107); Glucose 455 mg/dL (74-99); Non-African American GFR(CKD) >90 (>60 ml/min/1.73 sqM); Sodium 133 mmol/L (137-145); Total Protein 7.3 g/dL (6.3-8.2)
[2021-11-12 12:08] LABS: Basophils # (A) 0.1 k/uL (0-0.2); Basophils % (A) 0 %; Eosinophils # (A) 0.1 k/uL (0-0.7); Eosinophils % (A) 1 %; HCT 39.5 % (39.0-53.0); HGB 14.6 gm/dL (13.0-17.5); Hyperchromasia Slight; Lymphocytes # (A) 2.8 k/uL (1.0-4.8); Lymphocytes % (A) 25 %; MCH 31.8 pg (25.0-35.0); MCHC 36.9 g/dL (31.0-37.0); Mean Platelet Volume 7.7; Monocytes # (A) 0.7 k/uL (0-1.0); Monocytes % (A) 7 %; Neutrophils # (A) 7.1 k/uL (1.3-7.7); Neutrophils % (A) 64 %; Platelet Count 365 k/uL (150-450); RBC 4.59 m/uL (4.30-5.90); RDW 12.4 % (11.5-15.5)
[2021-11-12 12:14] LABS: INR 1.1 (<1.2); Partial Thromboplastin Time 25.2 sec (22.0-30.0)
[2021-11-12 12:16] LABS: Potassium 2.7 mmol/L (3.5-5.1)
[2021-11-12 12:17] LABS: Magnesium <0.4 mg/dL (1.6-2.3)
[2021-11-12] MEDS ORDERED: POTASSIUM CHLORIDE ER 20 MEQ TAB.ER PO STA (12:30)
[2021-11-12] MEDS ORDERED: POTASSIUM CHLORIDE 20 MEQ in WATER FOR INJECTION 1 100ML.BAG IVPB STA (12:30)
[2021-11-12] MEDS: MAGNESIUM SULFATE-D5W PMX 1 GM in DEXTROSE/WATER 1 100ML.BAG IVPB SCH ×4 (12:45→17:11)
--- NOTE | 2021-11-12 13:30 | CT ---
EXAMINATION TYPE: CT chest angio for PE DATE OF EXAM: 11/12/2021 COMPARISON: 10/29/2021 HISTORY: pe CT DLP: 289.4 mGycm CONTRAST: CT chest with contrast and 3D reconstruction with MIP imaging is performed with IV Contrast, patient injected with 70 mL of Isovue 370. Contrast-enhanced CT of the chest was performed through the course of the pulmonary arteries with juan alberto g and mediastinal window settings submitted. 3D reconstruction with MIP imaging was also performed. PULMONARY ARTERIES: The pulmonary arteries and their major tributaries are patent. I do not see saul dence for sizable filling defect to suggest pulmonary embolic process. LUNGS: The lungs are clear and free of infiltrate. No evidence for atelectasis. No pulmonary nodule or mass is detected. No pleural effusion. MEDIASTINUM: Thoracic aorta is of normal caliber,however, evaluation is limited given timing of the contrast bolus. If there is concern for thoracic aortic pathology consider HEIDI. Correlate clinicall y . The heart is not enlarged. No evidence for mediastinal mass. No mediastinal lymph nodes greater than 1cm. HILAR STRUCTURES: No evidence for mass. No hilar lymph nodes greater than 1 cm. UPPER ABDOMEN: Diffuse gastric wall thickening redemonstrated. Correlate for hypertrophic gastritis. Infiltrative neoplasm not excluded. IMPRESSION: 1. No evidence for Pulmonary embolism at this time.
[2021-11-12] MEDS ORDERED: NITROGLYCERIN SL TABS 0.4 MG TAB SUBLINGUAL PRN (13:36)
[2021-11-12] MEDS ORDERED: INSULIN ASPART (NovoLOG) 100 UNIT/ML VIAL SQ ONE (13:38)
[2021-11-12] MEDS ORDERED: SODIUM CHLORIDE 0.9% 500 ML 500 ML IV ONE (13:38)
[2021-11-12] MEDS ORDERED: SODIUM CHLORIDE 0.9% 1,000 ML IV ONE (13:38)
[2021-11-12] MEDS ORDERED: DEXTROSE 50% SYRINGE 50 ML IVP PRN ×2 (14:29)
[2021-11-12 15:06] LABS: Glucose,Whole Blood 423 mg/dL (70-110)
[2021-11-12] MEDS ORDERED: ACETAMINOPHEN TAB 325 MG TAB PO PRN (16:05)
[2021-11-12] MEDS: metFORMIN 500 MG TAB PO SCH (16:20)
[2021-11-12] MEDS: POTASSIUM CHLORIDE ER 20 MEQ TAB.ER PO SCH ×2 (16:21→18:34)
[2021-11-12] MEDS: ENOXAPARIN 40 MG/0.4 ML SYRINGE SQ SCH (16:21)
--- NOTE | 2021-11-12 16:26 | P.HPIM ---
History of Present Illness H&P Date: 11/12/21 Chief Complaint: Weak tired Hospital course: Patient was recently in the hospital from October 29 through November 03. Admitted with non-ST elevation [place]. October 30:Admitted with chest pain. [place] to be possible non-STEMI.Underwent cardiac catheterization. [place] of intermediate to was in CAD involving the left circumflex and LAD. Decision made to do medical management. November 02:cardiac catheterization again -a stent to the left circumflex and proximal LAD. EF 55%. Patient was stable at the time of discharge. For next 4 days and patient were to felt rather tired rather slept most affect. Then patient developed diarrhea for about 4 days. Appetite has been poor. Eating only small amounts. Started getting jittery shaky dizzy lightheadedness. Getting up. Also developed an episode of chest pressure. Went to see his director executive communications Dr. Blackmon 2 days ago. Patient's amlodipine was discontinued. Today against patient started feeling unwell. Tired, rundown. No energy. Dizzy. Vomited. Decrease fluid intake. Came to the ER. PE was ruled out. Found a very low potassium, low magnesium, Accu-Cheks and 400s. No prior history of diabetes. Review of systems: GEN.: Tired, decreased appetite EYES: None HEENT: None NECK: None RESPIRATORY: None CARDIOVASCULAR: As above GASTROINTESTINAL: Diarrhea resolved GENITOURINARY: None MUSCULOSKELETAL: Chronic back pain LYMPHATICS: None HEMATOLOGICAL: None PSYCHIATRY: None NEUROLOGICAL: None Past medical history to include: CAD with stent to left circumflex and LAD, BPH, chronic lumbar osteoarthritis, GERD, essential hypertension, hyperlipidemia Social history: Patient smoking up to 2 weeks ago. . Family history: Reviewed, noncontributory to presentation Physical examination: VITAL SIGNS: 97.9, 92, 20, 102/43, 100% room air GENERAL: BMI 24.4, declining in bed awake, tired appearing. EYES: Pupils equal. Conjunctiva normal. HEENT: External appearance of nose and ears normal, oral cavity dry mucous. NECK: JVD not raised; masses not palpable. HEART: First and second heart sounds are normal; no edema. LUNGS: Respiratory rate normal; decreased breath sounds. ABDOMEN: Soft, nontender, liver spleen not palpable, no masses palpable. PSYCH: Alert and oriented x3; mood and affect tiredl. MUSCULOSKELETAL:No Clubbing/cyanosis;muscles-grossly intact NEUROLOGICAL: Cranial nerves grossly intact; no facial asymmetry, power and sensation grossly intact. LYMPHATICS: No lymph nodes palpable in the axilla and neck INVESTIGATIONS, reviewed in the clinical context: White count 11 hemoglobin 14.6 platelets 365 sodium 133 potassium 2.7 BUN 21 creatinine 0.8 date lactic acid 2.8 magnesium less than 0.4 Troponin I 0.013, less than 0.012 EKG tracing personally reviewed by me-ST segment depression in inferolateral leads Chest x-ray film personally reviewed by me-hyperinflation Chest CT angiogram: Negative for PE From recent admission LDL 78 triglycerides 249 HDL 29 2-D echocardiogram: Normal motion abnormality. EF 55%. Assessment and plan: -Severe hypokalemia from patient having diarrhea a few days ago and decreased oral intake Replace potassium IV and oral. -Severe hypomagnesemia from having diarrhea and decreased oral intake IV and oral magnesium replacement -Severe myalgia from hypokalemia and hypomagnesemia causing muscle weakness Replace electrolytes -Clinical orthostatic from volume loss IV fluids -Nonketotic hyperosmolar hyperglycemia New Diagnosis of diabetes. Diabetic diet. IV fluids. Metformin -CAD - with stent to left circumflex and LAD. 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 Aspirin, Brilinta, Toprol-XL -Acute non-STEMI, possibly plaque rupture on 10/29/2021 Aspirin, Lipitor, Plavix -BPH Flomax 0.4 mg daily -Chronic lumbar osteoarthritis. 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 Norvasc has been discontinued -Hyperlipidemia Lipitor Replace potassium and magnesium. Heart saline. Accu-Cheks. Start metformin. Diabetic diet. Cut back Toprol-XL to 25 mg. Norvasc was discontinued 2 days ago. Care was discussed with the patient and . Cardiology consulted. Past Medical History Past Medical History: Coronary Artery Disease (CAD), Cancer, Myocardial Infarction ([place]) Additional Past Medical History / Comment(s): Jordan KNOTT Last Myocardial Infarction Date:: 10/29/21 History of Any Multi-Drug Resistant Organisms: None Reported Past Surgical History: Heart Catheterization With Stent Past Anesthesia/Blood Transfusion Reactions: No Reported Reaction Date of Last Stent Placement:: 10/29/21 Past Psychological History: No Psychological Hx Reported Smoking Status: Current every day smoker, Former smoker Past Alcohol Use History: None Reported Past Drug Use History: None Reported Additional Drug Use History / Comment(s): stopped smoking 10/29/21 - Past Family History Father History Unknown: Yes Mother History Unknown: Yes Medications and Allergies Home Medications Medication Instructions Recorded Confirmed Type Lansoprazole [Prevacid 24Hr] 30 mg PO DAILY 10/29/21 11/12/21 History Simvastatin [Zocor] 20 mg PO HS 10/29/21 11/12/21 History Tamsulosin [Flomax] 0.4 mg PO DAILY 10/29/21 11/12/21 History Acetaminophen Tab [Tylenol] 325 mg PO Q6HR PRN tab 11/03/21 11/12/21 Rx Aspirin 81 mg PO DAILY #90 tab 11/03/21 11/12/21 Rx Metoprolol Succinate (ER) [Toprol 50 mg PO DAILY #90 tab 11/03/21 11/12/21 Rx XL] Nicotine 21Mg/24Hr Patch [Habitrol] 1 patch TRANSDERM DAILY #14 patch 11/03/21 11/12/21 Rx Nitroglycerin Sl Tabs [Nitrostat] 0.4 mg SUBLINGUAL Q5M PRN #25 tab 11/03/21 11/12/21 Rx Ticagrelor [Brilinta] 90 mg PO BID #60 tab 11/03/21 11/12/21 Rx lisinopriL [Zestril] 10 mg PO DAILY #90 tab 11/03/21 11/12/21 Rx Allergies Allergy/AdvReac Type Severity Reaction Status Date / Time No Known Allergies Allergy Verified 11/12/21 14:03 Physical Exam Vitals: Vital Signs Temp Pulse Pulse Resp BP BP Pulse Ox 11/12/21 15:29 99.2 F 58 L 15 124/67 99 11/12/21 15:00 64 20 138/68 99 11/12/21 14:00 67 20 121/93 97 11/12/21 13:00 77 18 133/85 98 11/12/21 12:15 73 20 127/117 99 11/12/21 12:00 72 24 114/75 98 11/12/21 11:45 74 24 102/84 98 11/12/21 11:27 84 H 11/12/21 11:24 97.9 F 92 20 102/43 100 Intake and Output 11/12/21 11/12/21 11/12/21 06:59 14:59 22:59 Other: # Voids 1 Weight 68.492 kg 68.492 kg Results CBC & Chem 7: 11/12/21 11:39 11/12/21 11:39 Labs: Abnormal Lab Results - Last 24 Hours (Table) 11/12/21 11/12/21 11/12/21 Range/Units 11:39 11:39 11:39 WBC 11.0 H (3.8-10.6) k/uL Sodium 133 L (137-145) mmol/L Potassium 2.7 L* (3.5-5.1) mmol/L Chloride 90 L (98-107) mmol/L BUN 21 H (9-20) mg/dL Glucose 455 H (74-99) mg/dL POC Glucose (mg/dL) (70-110) mg/dL Plasma Lactic Acid Dewey 2.8 H* (0.7-2.0) mmol/L Calcium 7.7 L (8.4-10.2) mg/dL Magnesium <0.4 L* (1.6-2.3) mg/dL 11/12/21 Range/Units 15:03 WBC (3.8-10.6) k/uL Sodium (137-145) mmol/L Potassium (3.5-5.1) mmol/L Chloride (98-107) mmol/L BUN (9-20) mg/dL Glucose (74-99) mg/dL POC Glucose (mg/dL) 423 H (70-110) mg/dL Plasma Lactic Acid Dewey (0.7-2.0) mmol/L Calcium (8.4-10.2) mg/dL Magnesium (1.6-2.3) mg/dL Thrombosis Risk Factor Assmnt - Choose All That Apply Each Risk Factor Represents 2 Points: Age 61-74 years Thrombosis Risk Factor Assessment Total Risk Factor Score: 2 Thrombosis Risk Factor Assessment Level: Low Risk
[2021-11-12] MEDS: SODIUM CHLORIDE 0.45% 1,000 ML IV SCH (16:28)
[2021-11-12 16:40] LABS: Glucose,Whole Blood 361 mg/dL (70-110)
[2021-11-12] MEDS: INSULIN ASPART (NovoLOG) 100 UNIT/ML VIAL SQ SCH ×2 (17:11→20:45)
[2021-11-12 20:11] LABS: Glucose,Whole Blood 305 mg/dL (70-110)
[2021-11-12] MEDS: lisinopriL 10 MG TAB PO SCH (20:44)
[2021-11-12] MEDS: MAGNESIUM OXIDE 400 MG TAB PO SCH (20:44)
[2021-11-12] MEDS: TICAGRELOR 90 MG TAB PO SCH (20:44)
[2021-11-13] MEDS: SODIUM CHLORIDE 0.45% 1,000 ML IV SCH ×3 (03:45→16:25)
[2021-11-13 06:11] LABS: Glucose,Whole Blood 211 mg/dL (70-110)
[2021-11-13] MEDS: metFORMIN 500 MG TAB PO SCH ×2 (06:16→16:28)
[2021-11-13] MEDS: PANTOPRAZOLE 40 MG TABLET PO SCH (06:17)
[2021-11-13] MEDS: INSULIN ASPART (NovoLOG) 100 UNIT/ML VIAL SQ SCH ×4 (06:17→19:56)
[2021-11-13] MEDS: NICOTINE 21MG/24HR PATCH TRANSDERM SCH (08:35)
[2021-11-13] MEDS: TAMSULOSIN 0.4 MG CAP.ER.24H PO SCH (08:36)
[2021-11-13] MEDS: ASPIRIN 81 MG PO SCH (08:36)
[2021-11-13] MEDS: METOPROLOL SUCCINATE (ER) 25 MG TAB.ER.24H PO SCH (08:36)
[2021-11-13] MEDS: MAGNESIUM OXIDE 400 MG TAB PO SCH ×2 (08:36→19:56)
[2021-11-13] MEDS: ENOXAPARIN 40 MG/0.4 ML SYRINGE SQ SCH (08:36)
[2021-11-13] MEDS: TICAGRELOR 90 MG TAB PO SCH ×2 (08:36→19:56)
[2021-11-13] MEDS ORDERED: ASPIRIN 325 MG TAB PO SCH (09:00)
[2021-11-13] MEDS ORDERED: METOPROLOL SUCCINATE (ER) 50 MG TAB.ER.24H PO SCH (09:00)
[2021-11-13 10:03] LABS: African American GFR (CKD) >90 (>60 ml/min/1.73 sqM); Anion Gap 16 mmol/L; Blood Urea Nitrogen 9 mg/dL (9-20); Calcium 7.5 mg/dL (8.4-10.2); Carbon Dioxide 22 mmol/L (22-30); Chloride 97 mmol/L (98-107); Glucose 345 mg/dL (74-99); Non-African American GFR(CKD) >90 (>60 ml/min/1.73 sqM); Potassium 3.2 mmol/L (3.5-5.1); Sodium 135 mmol/L (137-145)
[2021-11-13 11:40] LABS: Glucose,Whole Blood 358 mg/dL (70-110)
[2021-11-13] MEDS: DAPAGLIFLOZIN PROPANEDIOL 5 MG TABLET PO SCH (11:46)
--- NOTE | 2021-11-13 11:52 | P.CRDCN ---
History of Present Illness History of present illness: HISTORY OF PRESENTING ILLNESS This is a pleasant 66-year-old male past medical history significant for coronary artery disease s/p PCI to mid left circumflex and proximal LAD on 11/02/2021, hypertension, dyslipidemia, GERD, BPH, bladder cancer, tobacco dependence. He follows with Dr. Peng. We have been asked to see in consultation for chest pain. Patient presents to the emergency department with complaints of diarrhea for 3-4 days, decreased PO intake, nausea, lightheadedness, dizziness, pre-syncope. He states that yesterday he was getting ready to watch the [employer] game and he had sudden onset of diarrhea again. He states after this he had symptoms of lightheadedness, felt as if he may pass out. His brought him to the ER and he was found to have hypokalemia, hypomagnesemia and hyperglycemia. He did endorse some associated shortness of breath. Denies any chest pain, palpitations. He states after the hospital he did feel "run down" and "tired" not back to his baseline yet and then diarrhea occurred. His chlorathalidone and amlodipine was recently discontinued secondary to orthostatic hypotension in the office. He denies history of Diabetes. Compliant with his medications. This morning, patient state his symptoms have resolved. He was able to eat two meals without difficulty. DIAGNOSTICS * EKG reveals sinus rhythm, heart rate 87, ST depression noted in leads V3-V6. P rior EKG 10/29 had some similar changes as well. * CTA of the chest reported as no evidence of pulmonary embolism * Telemetry tracings indicate sinus mechanism * Chest xray no acute cardiopulmonary process * Laboratory reviewed, troponin negative 3, sodium 133, potassium 2.7, BUN 21, serum cancer 0.8, hemoglobin A1c 10.2, lactate 2.8, magnesium <0.4, BNP 148, WBC 11, hemoglobin 14.6 * Echocardiogram 10/30/2021 revealed EF of 55%, mild LVH, no significant wall motion or valvular abnormalities * Cardiac catheterization: On 10/30/2021 that revealed Intermediate two-vessel CAD involving the LCx and LAD with the LAD lesion appeared to be somewhat worse, Mildly elevated left-sided filling pressure. Patient was taken back to dentures lab technician for continued chest pain requiring nitro drip on 11/02/2021, FFR was performed on both LAD and LCx and patient underwent stenting to the mid left circumflex, stenting of the proximal LAD. * Current home medications include lisinopril 10 mg daily, Brilinta 90 mg twice a day, simvastatin 20 mg nightly, aspirin milligrams daily, metoprolol succinate 50 mg daily REVIEW OF SYSTEMS At the time of my exam: CONSTITUTIONAL: Denies fever or chills. +lightheadedness, dizziness- improved. CARDIOVASCULAR: Denies chest pain, Denies shortness of breath, Denies orthopnea, PND or palpitations. RESPIRATORY: Denies cough. GASTROINTESTINAL: Denies abdominal pain, +diarrhea, Denies constipation, nausea or vomiting. MUSCULOSKELETAL: Denies myalgias. NEUROLOGIC: Denies numbness, tingling, headache or weakness. ENDOCRINE: Denies fatigue, weight change, polydipsia or polyurina. GENITOURINARY: Denies burning, hematuria or urgency with micturation. HEMATOLOGIC: Denies history of anemia or bleeding. PHYSICAL EXAMINATION Vitals reviewed CONSTITUTIONAL: No apparent distress. HEENT: Head is normocephalic. Pupils are equal, round. Sclerae anicteric. Mucous membranes of the mouth are moist. No JVD. No carotid bruit. CHEST EXAMINATION: Lungs are clear to auscultation. No chest wall tenderness is noted on palpation or with deep breathing. HEART EXAMINATION: Regular rate and rhythm. S1, S2 heard. No murmurs, gallops or rub. ABDOMEN: Soft, nontender. Positive bowel sounds. EXTREMITIES: 2+ peripheral pulses, no lower extremity edema and no calf tenderness. SKIN: warm, dry NEUROLOGIC EXAMINATION: Patient is awake, alert and oriented x3. ASSESSMENT Symptoms of lightheadedness, dizziness, in the setting of hypokalemia, hypomagnesemia and hyperglycemia Coronary artery disease s/p PCI to mid left circumflex and proximal LAD on 11/02/2021 Tobacco dependence Hypertension Dyslipidemia GERD BPH PLAN Consult for chest pain, patient denies any chest pain. Troponin negative x 3. Continue home cardiac medications Continue dual antiplatelet therapy with aspirin Brilinta Monitor renal function and electrolytes On discharge, patient to follow up outpatient with Dr. Peng Check COVID test given multiple symtpoms diarrhea, poor appetite fatigue with possibility of viral infection Thank you kindly for this consultation. Nurse practitioner note has been reviewed by physician. Signing provider agrees with the documented findings, assessment, and plan of care. Past Medical History Past Medical History: Coronary Artery Disease (CAD), Cancer, Myocardial Infarction (MA) Additional Past Medical History / Comment(s): Jordan KNOTT Last Myocardial Infarction Date:: 10/29/21 History of Any Multi-Drug Resistant Organisms: None Reported Past Surgical History: Heart Catheterization With Stent Past Anesthesia/Blood Transfusion Reactions: No Reported Reaction Date of Last Stent Placement:: 10/29/21 Past Psychological History: No Psychological Hx Reported Smoking Status: Current every day smoker, Former smoker Past Alcohol Use History: None Reported Past Drug Use History: None Reported Additional Drug Use History / Comment(s): stopped smoking 10/29/21 - Past Family History Father History Unknown: Yes Mother History Unknown: Yes Medications and Allergies Home Medications Medication Instructions Recorded Confirmed Type Lansoprazole [Prevacid 24Hr] 30 mg PO DAILY 10/29/21 11/12/21 History Simvastatin [Zocor] 20 mg PO HS 10/29/21 11/12/21 History Tamsulosin [Flomax] 0.4 mg PO DAILY 10/29/21 11/12/21 History Acetaminophen Tab [Tylenol] 325 mg PO Q6HR PRN tab 11/03/21 11/12/21 Rx Aspirin 81 mg PO DAILY #90 tab 11/03/21 11/12/21 Rx Metoprolol Succinate (ER) [Toprol 50 mg PO DAILY #90 tab 11/03/21 11/12/21 Rx XL] Nicotine 21Mg/24Hr Patch [Habitrol] 1 patch TRANSDERM DAILY #14 patch 11/03/21 11/12/21 Rx Nitroglycerin Sl Tabs [Nitrostat] 0.4 mg SUBLINGUAL Q5M PRN #25 tab 11/03/21 11/12/21 Rx Ticagrelor [Brilinta] 90 mg PO BID #60 tab 11/03/21 11/12/21 Rx lisinopriL [Zestril] 10 mg PO DAILY #90 tab 11/03/21 11/12/21 Rx Allergies Allergy/AdvReac Type Severity Reaction Status Date / Time No Known Allergies Allergy Verified 11/12/21 14:03 Physical Exam Vitals: Vital Signs Temp Pulse Pulse Resp BP BP Pulse Ox 11/13/21 03:15 68 17 148/82 98 11/13/21 00:00 98.5 F 56 L 16 124/73 100 11/12/21 20:45 98.3 F 63 18 119/74 99 11/12/21 15:29 99.2 F 58 L 15 124/67 99 11/12/21 15:00 64 20 138/68 99 11/12/21 14:00 67 20 121/93 97 11/12/21 13:00 77 18 133/85 98 11/12/21 12:15 73 20 127/117 99 11/12/21 12:00 72 24 114/75 98 11/12/21 11:45 74 24 102/84 98 11/12/21 11:27 84 H 11/12/21 11:24 97.9 F 92 20 102/43 100 Intake and Output 11/12/21 11/13/21 11/13/21 22:59 06:59 14:59 Intake Total 118 Balance 118 Intake: Oral 118 Other: Voiding Method Toilet Toilet # Voids 1 2 Weight 68.492 kg Results 11/12/21 11:39 11/13/21 08:16 Cardiac Enzymes 11/12/21 11/12/21 11/12/21 Range/Units 11:39 11:39 14:39 AST 21 (17-59) U/L Troponin I 0.013 <0.012 (0.000-0.034) ng/mL 11/12/21 Range/Units 17:31 AST (17-59) U/L Troponin I 0.014 (0.000-0.034) ng/mL Coagulation 11/12/21 Range/Units 11:39 PT 12.0 (9.0-12.0) sec APTT 25.2 (22.0-30.0) sec CBC 11/12/21 Range/Units 11:39 WBC 11.0 H (3.8-10.6) k/uL RBC 4.59 (4.30-5.90) m/uL Hgb 14.6 (13.0-17.5) gm/dL Hct 39.5 (39.0-53.0) % Plt Count 365 (150-450) k/uL Comprehensive Metabolic Panel 11/12/21 Range/Units 11:39 Sodium 133 L (137-145) mmol/L Potassium 2.7 L* (3.5-5.1) mmol/L Chloride 90 L (98-107) mmol/L Carbon Dioxide 23 (22-30) mmol/L BUN 21 H (9-20) mg/dL Creatinine 0.88 (0.66-1.25) mg/dL Glucose 455 H (74-99) mg/dL Calcium 7.7 L (8.4-10.2) mg/dL AST 21 (17-59) U/L ALT 24 (4-49) U/L Alkaline Phosphatase 80 (38-126) U/L Total Protein 7.3 (6.3-8.2) g/dL Albumin 4.5 (3.5-5.0) g/dL Current Medications Generic Name Dose Route Start Last Admin Trade Name Freq PRN Reason Stop Dose Admin Acetaminophen 325 mg 11/12/21 16:05 11/13/21 06:21 Acetaminophen Tab 325 Mg Tab PO 325 mg Q6HR PRN Administration Fever and/ or Mild Pain Aspirin 81 mg 11/13/21 09:00 Aspirin 81 Mg PO DAILY ROLANDO Dextrose/Water 25 ml 11/12/21 14:29 Dextrose 50% Syringe 50 Ml IVP PER PROTOCOL PRN Hypoglycemia Protocol Dextrose/Water 50 ml 11/12/21 14:29 Dextrose 50% Syringe 50 Ml IVP PER PROTOCOL PRN Hypoglycemia Protocol Enoxaparin Sodium 40 mg 11/12/21 16:15 11/12/21 16:21 Enoxaparin 40 Mg/0.4 Ml Syringe SQ 40 mg DAILY ROLANDO Administration Sodium Chloride 1,000 mls @ 125 mls/hr 11/12/21 16:15 11/13/21 03:45 Saline 0.45% IV Not Given .Q8H ROLANDO Insulin Aspart 0 unit 11/12/21 17:30 11/13/21 06:17 Insulin Aspart (Novolog) 100 Unit/Ml Vial SQ 2 unit ACHS ROLANDO Administration Protocol Lisinopril 10 mg 11/12/21 21:00 11/12/21 20:44 Lisinopril 10 Mg Tab PO 10 mg HS ROLANDO Administration Magnesium Oxide 400 mg 11/12/21 21:00 11/12/21 20:44 Magnesium Oxide 400 Mg Tab PO 400 mg BID ROLANDO Administration Metformin HCl 500 mg 11/12/21 17:30 11/13/21 06:16 Metformin 500 Mg Tab PO 500 mg AC-BID ROLANDO Administration Metoprolol Succinate 25 mg 11/13/21 09:00 Metoprolol Succinate (Er) 25 Mg Tab.Er.24h PO DAILY [facility] Nicotine 1 patch 11/13/21 09:00 Nicotine 21mg/24hr Patch TRANSDERM DAILY ROLANDO Nitroglycerin 0.4 mg 11/12/21 13:36 Nitroglycerin Sl Tabs 0.4 Mg Tab SUBLINGUAL Q5M PRN Chest Pain Pantoprazole Sodium 40 mg 11/13/21 07:30 11/13/21 06:17 Pantoprazole 40 Mg Tablet PO 40 mg AC-BRKFST [facility] Administration Tamsulosin HCl 0.4 mg 11/13/21 09:00 Tamsulosin 0.4 Mg Cap.Er.24h PO DAILY [facility] Ticagrelor 90 mg 11/12/21 21:00 11/12/21 20:44 Ticagrelor 90 Mg Tab PO 90 mg BID ROLANDO Administration Intake and Output 11/12/21 11/13/21 11/13/21 22:59 06:59 14:59 Intake Total 118 Balance 118 Intake: Oral 118 Other: Voiding Method Toilet Toilet # Voids 1 2 Weight 68.492 kg 11/12/21 11:39 11/12/21 11:39
[2021-11-13] MEDS ORDERED: MAGNESIUM OXIDE 400 MG TAB PO STA (15:34)
[2021-11-13] MEDS ORDERED: POTASSIUM CHLORIDE ER 20 MEQ TAB.ER PO STA (15:34)
[2021-11-13 16:18] LABS: Chol/HDL Ratio 6.08 Ratio; LDL Cholesterol,Calculated 22.3 mg/dL (0.0-131.0)
[2021-11-13 16:20] VITALS: BMI 24.3
[2021-11-13 16:27] LABS: Glucose,Whole Blood 162 mg/dL (70-110)
--- NOTE | 2021-11-13 17:49 | P.PN ---
Progress Note - Text Progress Note Date: 11/13/21 Chief Complaint: Weak tired Hospital course: Patient was recently in the hospital from October 29 through November 03. Admitted with non-ST elevation [place]. October 30:Admitted with chest pain. [place] to be possible non-STEMI.Underwent cardiac catheterization. [place] of intermediate to was in CAD involving the left circumflex and LAD. Decision made to do medical management. November 02:cardiac catheterization again -a stent to the left circumflex and proximal LAD. EF 55%. Patient was stable at the time of discharge. For next 4 days and patient were to felt rather tired rather slept most affect. Then patient developed diarrhea for about 4 days. Appetite has been poor. Eating only small amounts. Started getting jittery shaky dizzy lightheadedness. Getting up. Also developed an episode of chest pressure. 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 Patient's amlodipine was discontinued. Today against patient started feeling unwell. Tired, rundown. No energy. Dizzy. Vomited. Decrease fluid intake. Came to the ER. PE was ruled out. Found a very low potassium, low magnesium, Accu-Cheks and 400s. No prior history of diabetes. November 13: Patient had some diarrhea overnight and this morning. Metformin was changed to be taken after meals. farxiga added. Stool sent off for C. diff negative. GI consulted. Replace potassium and magnesium. Blood pressure better. Seen by cardiology, no further change in medications Active Medications Acetaminophen (Acetaminophen Tab 325 Mg Tab) 325 mg PO Q6HR PRN PRN Reason: Fever and/ or Mild Pain Last Admin: 11/13/21 06:21 Dose: 325 mg Aspirin (Aspirin 81 Mg) 81 mg PO DAILY [facility] Last Admin: 11/13/21 08:36 Dose: 81 mg Dapagliflozin (Dapagliflozin Propanediol 5 Mg Tablet) 5 mg PO DAILY [facility] Last Admin: 11/13/21 11:46 Dose: 5 mg Dextrose/Water (Dextrose 50% Syringe 50 Ml) 25 ml IVP PER PROTOCOL PRN; Protocol PRN Reason: Hypoglycemia Dextrose/Water (Dextrose 50% Syringe 50 Ml) 50 ml IVP PER PROTOCOL PRN; Protocol PRN Reason: Hypoglycemia Enoxaparin Sodium (Enoxaparin 40 Mg/0.4 Ml Syringe) 40 mg SQ DAILY [facility] Last Admin: 11/13/21 08:36 Dose: 40 mg Sodium Chloride (Saline 0.45%) 1,000 mls @ 125 mls/hr IV .Q8H [facility] Last Admin: 11/13/21 16:25 Dose: 125 mls/hr Insulin Aspart (Insulin Aspart (Novolog) 100 Unit/Ml Vial) 0 unit SQ ACHS [facility]; Protocol Last Admin: 11/13/21 16:24 Dose: 1 unit Lisinopril (Lisinopril 10 Mg Tab) 10 mg PO HS [facility] Last Admin: 11/12/21 20:44 Dose: 10 mg Magnesium Oxide (Magnesium Oxide 400 Mg Tab) 400 mg PO BID [facility] Last Admin: 11/13/21 08:36 Dose: 400 mg Metformin HCl (Metformin 500 Mg Tab) 500 mg PO PC-BID [facility] Last Admin: 11/13/21 16:28 Dose: 500 mg Metoprolol Succinate (Metoprolol Succinate (Er) 25 Mg Tab.Er.24h) 25 mg PO DAILY [facility] Last Admin: 11/13/21 08:36 Dose: 25 mg Nicotine (Nicotine 21mg/24hr Patch) 1 patch TRANSDERM DAILY [facility] Last Admin: 11/13/21 08:35 Dose: 1 patch Nitroglycerin (Nitroglycerin Sl Tabs 0.4 Mg Tab) 0.4 mg SUBLINGUAL Q5M PRN PRN Reason: Chest Pain Pantoprazole Sodium (Pantoprazole 40 Mg Tablet) 40 mg PO AC-BRKFST [facility] Last Admin: 11/13/21 06:17 Dose: 40 mg Tamsulosin HCl (Tamsulosin 0.4 Mg Cap.Er.24h) 0.4 mg PO DAILY [facility] Last Admin: 11/13/21 08:36 Dose: 0.4 mg Ticagrelor (Ticagrelor 90 Mg Tab) 90 mg PO BID [facility] Last Admin: 11/13/21 08:36 Dose: 90 mg Past medical history to include: CAD with stent to left circumflex and LAD, BPH, chronic lumbar osteoarthritis, GERD, essential hypertension, hyperlipidemia Social history: Patient smoking up to 2 weeks ago. . Family history: Reviewed, noncontributory to presentation Physical examination: VITAL SIGNS: 97.9, 92, 20, 102/43, 100% room air GENERAL: Reclining in bed, less tired EYES: Pupils equal. Conjunctiva normal. HEENT: External appearance of nose and ears normal, oral cavity dry mucous. NECK: JVD not raised; masses not palpable. HEART: First and second heart sounds are normal; no edema. LUNGS: Respiratory rate normal; decreased breath sounds. ABDOMEN: Soft, nontender, liver spleen not palpable, no masses palpable. PSYCH: Alert and oriented x3; mood and affect tiredl. MUSCULOSKELETAL:No Clubbing/cyanosis;muscles-grossly intact INVESTIGATIONS, reviewed in the clinical context: November 13: Sodium 135 progression 3.2 creatinine 0.57 magnesia 1 triglycerides 348 LDL 22.3 C. diff: Negative. COVID-19 PCR: Not detected White count 11 hemoglobin 14.6 platelets 365 sodium 133 potassium 2.7 BUN 21 creatinine 0.8 date lactic acid 2.8 magnesium less than 0.4 Troponin I 0.013, less than 0.012 EKG tracing personally reviewed by me-ST segment depression in inferolateral leads Chest x-ray film personally reviewed by me-hyperinflation Chest CT angiogram: Negative for PE From recent admission LDL 78 triglycerides 249 HDL 29 2-D echocardiogram: Normal motion abnormality. EF 55%. Assessment and plan: -Severe hypokalemia from patient having diarrhea a few days ago and decreased oral intake: Improving Replace potassium IV and oral. -Severe hypomagnesemia from having diarrhea and decreased oral intake IV and oral magnesium replacement -Acute diarrhea. Negative for C. diff. Metformin changed to after meals. Consult GI -Severe myalgia from hypokalemia and hypomagnesemia causing muscle weakness: Improving Replace electrolytes -Clinical orthostatic from volume loss IV fluids -Nonketotic hyperosmolar hyperglycemia New Diagnosis of diabetes. Diabetic diet. IV fluids. Metformin. Add farxiga -CAD - with stent to left circumflex and LAD. 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 Aspirin, Brilinta, Toprol-XL -Acute non-STEMI, possibly plaque rupture on 10/29/2021 Aspirin, Lipitor, Plavix -BPH Flomax 0.4 mg daily -Chronic lumbar osteoarthritis. 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 Norvasc has been discontinued -Hyperlipidemia Lipitor Replace electrolytes. C. diff negative. Change timing of metformin. Had farxiga. Add Metamucil.
[2021-11-13] MEDS: PSYLLIUM HUSK 100% 6 GM PACKET PO SCH (19:43)
[2021-11-13 19:53] LABS: Glucose,Whole Blood 182 mg/dL (70-110)
[2021-11-13] MEDS: lisinopriL 10 MG TAB PO SCH (19:56)
[2021-11-14 05:45] LABS: Glucose,Whole Blood 196 mg/dL (70-110)
[2021-11-14] MEDS: INSULIN ASPART (NovoLOG) 100 UNIT/ML VIAL SQ SCH ×4 (06:17→20:13)
[2021-11-14] MEDS: PANTOPRAZOLE 40 MG TABLET PO SCH (06:17)
[2021-11-14] MEDS: SODIUM CHLORIDE 0.45% 1,000 ML IV SCH ×3 (09:01→20:10)
[2021-11-14] MEDS: metFORMIN 500 MG TAB PO SCH (09:01)
[2021-11-14] MEDS: TAMSULOSIN 0.4 MG CAP.ER.24H PO SCH (09:09)
[2021-11-14] MEDS: ASPIRIN 81 MG PO SCH (09:09)
[2021-11-14] MEDS: TICAGRELOR 90 MG TAB PO SCH ×2 (09:09→20:11)
[2021-11-14] MEDS: DAPAGLIFLOZIN PROPANEDIOL 5 MG TABLET PO SCH (09:09)
[2021-11-14] MEDS: METOPROLOL SUCCINATE (ER) 25 MG TAB.ER.24H PO SCH (09:09)
[2021-11-14] MEDS: MAGNESIUM OXIDE 400 MG TAB PO SCH ×4 (09:09→20:11)
[2021-11-14] MEDS: ENOXAPARIN 40 MG/0.4 ML SYRINGE SQ SCH (09:10)
[2021-11-14] MEDS: PSYLLIUM HUSK 100% 6 GM PACKET PO SCH (09:10)
[2021-11-14] MEDS: NICOTINE 21MG/24HR PATCH TRANSDERM SCH (09:10)
[2021-11-14 09:18] LABS: African American GFR (CKD) >90 (>60 ml/min/1.73 sqM); Anion Gap 14 mmol/L; Blood Urea Nitrogen 6 mg/dL (9-20); Calcium 8.3 mg/dL (8.4-10.2); Carbon Dioxide 21 mmol/L (22-30); Chloride 98 mmol/L (98-107); Glucose 197 mg/dL (74-99); Non-African American GFR(CKD) >90 (>60 ml/min/1.73 sqM); Potassium 3.6 mmol/L (3.5-5.1); Sodium 133 mmol/L (137-145)
--- NOTE | 2021-11-14 10:54 | P.CONS ---
History of Present Illness - Reason for Consult Consult date: 11/14/21 Acute Diarrhea Requesting physician: Tonio Arambula - Chief Complaint Chest pain - History of Present Illness This a pleasant 66-year-old male who recently was admitted and underwent cardiac catheterization with stenting on 10/30/2021 and again on 11/02/2021 who is currently on Brilinta and aspirin recently to the emergency department with complaints of chest pressure and shortness of breath. Patient had apparently 2 recent MIs, thought again he was having similar symptoms however was associated with an episode of vomiting as well as multiple episodes of diarrhea. Patient states he was discharged last Saturday, he was started on new medications including his Brilinta and metformin. He states ever since he started his metformin he has had diarrhea. He is having loose stool since last Saturday. He states once he was admitted here he has been started on metformin twice a day, also was started on magnesium oxide, and has had multiple loose stools throughout the last 24 hours at least every 20-30 minutes. He denies any blood in his stool, states it is like a light yellow. Denies any nausea or vomiting or abdominal pain associated with it. He denies any recent travel, no sick contacts. Last colonoscopy likely greater than 10 years ago. He states he is due for his repeat colonoscopy. He reports weight loss of 20 pounds in 1 week's duration. He has been afebrile. Patient presented with hyponatremia, hypo- kalemia, hypo-magnesemia. Stool C. diff was negative. Patient is also been started on magnesium oxide. Admitting labs: WBC 11.0 hemoglobin 14.6 hematocrit 39 platelet count 365 9 are 1.1 sodium 133 potassium 2.7 nightly 21 creatinine 0.8 glucose 455 hemoglobin A1c 10.2 magnesium less than 0.4 total bilirubin 1.0 AST 21 ALT 24 alkaline phos phatase 80 triglycerides 348 Review of Systems REVIEW OF SYSTEMS: CARDIOPULMONARY: No chest pain or shortness of breath. Gastrointestinal: No abdominal pain or cramping. No nausea or vomiting. No hematemesis, coffee-ground emesis. No rectal bleeding, or melena. Multiple loose, watery yellow diarrhea. GENITOURINARY: No dysuria or hematuria. MUSCULOSKELETAL: Reports normal range of motion., Joint pain. SKIN: No rashes. No jaundice. ENDOCRINE: No chills, fevers. No excessive weight gain or loss. No polydipsia or polyuria. PSYCHIATRIC: Unremarkable. NEUROLOGY: No change in mental status. Denies dizziness, headache. ENT: Vision unremarkable. CONSTITUTIONAL: Patient states he lost 20 pounds in 1 week. No fever, chills, night sweats. Past Medical History Past Medical History: Coronary Artery Disease (CAD), Cancer, Myocardial Infarction (IA) Additional Past Medical History / Comment(s): Jordan KNOTT Last Myocardial Infarction Date:: 10/29/21 History of Any Multi-Drug Resistant Organisms: None Reported Past Surgical History: Heart Catheterization With Stent Past Anesthesia/Blood Transfusion Reactions: No Reported Reaction Date of Last Stent Placement:: 10/29/21 Past Psychological History: No Psychological Hx Reported Smoking Status: Current every day smoker, Former smoker Past Alcohol Use History: None Reported Past Drug Use History: None Reported Additional Drug Use History / Comment(s): stopped smoking 10/29/21 - Past Family History Father History Unknown: Yes Mother History Unknown: Yes Medications and Allergies Home Medications Medication Instructions Recorded Confirmed Type Lansoprazole [Prevacid 24Hr] 30 mg PO DAILY 10/29/21 11/12/21 History Simvastatin [Zocor] 20 mg PO HS 10/29/21 11/12/21 History Tamsulosin [Flomax] 0.4 mg PO DAILY 10/29/21 11/12/21 History Acetaminophen Tab [Tylenol] 325 mg PO Q6HR PRN tab 11/03/21 11/12/21 Rx Aspirin 81 mg PO DAILY #90 tab 11/03/21 11/12/21 Rx Metoprolol Succinate (ER) [Toprol 50 mg PO DAILY #90 tab 11/03/21 11/12/21 Rx XL] Nicotine 21Mg/24Hr Patch [Habitrol] 1 patch TRANSDERM DAILY #14 patch 11/03/21 11/12/21 Rx Nitroglycerin Sl Tabs [Nitrostat] 0.4 mg SUBLINGUAL Q5M PRN #25 tab 11/03/21 11/12/21 Rx Ticagrelor [Brilinta] 90 mg PO BID #60 tab 11/03/21 11/12/21 Rx lisinopriL [Zestril] 10 mg PO DAILY #90 tab 11/03/21 11/12/21 Rx Dapagliflozin Propanediol [Farxiga] 5 mg PO DAILY #30 tab 11/14/21 Rx Allergies Allergy/AdvReac Type Severity Reaction Status Date / Time No Known Allergies Allergy Verified 11/12/21 14:03 Physical Exam Vitals: Vital Signs Temp Pulse Resp BP Pulse Ox 11/14/21 08:00 98.9 F 77 16 125/84 96 11/14/21 04:10 64 18 144/78 97 11/13/21 23:05 98 F 67 17 115/67 98 11/13/21 19:55 99.3 F 70 18 143/84 98 11/13/21 15:55 97.6 F 76 14 136/63 97 11/13/21 13:22 98 11/13/21 13:19 72 14 11/13/21 12:00 97.8 F 72 14 147/77 98 Intake and Output 11/13/21 11/14/21 11/14/21 22:59 06:59 14:59 Intake Total 0 Output Total 0 Balance 0 0 Intake: Oral 0 Output: Urine 0 Stool 0 Urine/Stool Mix 0 Emesis 0 Other: Voiding Method Toilet Toilet Toilet # Voids 2 0 Weight 68.492 kg General appearance: The patient is alert, oriented, appears in no acute distress. HET: Head is normocephalic and atraumatic. Conjunctiva pink. Sclera anicteric. Neck: Supple without lymphadenopathy. Trachea midline. Heart: S1 S2. Regular rate and rhythm. Lungs: Clear to auscultation. Abdomen: Soft, nontender, nondistended with bowel sounds. No guarding or rig idity. Skin: No rashes. No jaundice. Extremities: Normal skin color and turgor. No pedal edema. Neurological: No focal deficits. Alert and oriented x3. Results CBC & Chem 7: 11/12/21 11:39 11/14/21 07:53 Labs: Abnormal Lab Results - Last 24 Hours (Table) 11/13/21 11/13/21 11/13/21 Range/Units 08:16 11:39 16:17 Sodium (137-145) mmol/L Carbon Dioxide (22-30) mmol/L BUN (9-20) mg/dL Creatinine (0.66-1.25) mg/dL Glucose (74-99) mg/dL POC Glucose (mg/dL) 358 H 162 H (70-110) mg/dL Calcium (8.4-10.2) mg/dL Magnesium (1.6-2.3) mg/dL Triglycerides 348.00 H (0.00-149.00) mg/dL VLDL Cholesterol, Calc 69.60 H (5.00-40.00) mg/dL HDL Cholesterol 18.10 L (40.00-60.00) mg/dL 11/13/21 11/14/21 11/14/21 Range/Units 19:50 05:44 07:53 Sodium 133 L (137-145) mmol/L Carbon Dioxide 21 L (22-30) mmol/L BUN 6 L (9-20) mg/dL Creatinine 0.51 L (0.66-1.25) mg/dL Glucose 197 H (74-99) mg/dL POC Glucose (mg/dL) 182 H 196 H (70-110) mg/dL Calcium 8.3 L (8.4-10.2) mg/dL Magnesium 1.0 L (1.6-2.3) mg/dL Triglycerides (0.00-149.00) mg/dL VLDL Cholesterol, Calc (5.00-40.00) mg/dL HDL Cholesterol (40.00-60.00) mg/dL Comments: Chest CT angiogram with no evidence of pulmonary embolism Assessment and Plan (1) Diarrhea Narrative/Plan: 66-year-old male who was recently admitted to the hospital and underwent MRI, cardiac catheterization with stenting on 912 and 9:15 presented. The emergency department with complaints of chest pressure with shortness of breath. Patient also has some vomiting prior to coming in but none since. He was also complaining of having diarrhea several times a day since last week Saturday. He was started on new medications after his last admission including Brilinta and metformin. Patient was noted to be hyponatremic, hypokalemic, and hypomagnesemia. He was started on magnesium sulfate IV and also started on magnesium oxide yesterday. He had a hemoglobin A1c of 10.2 and patient states his metformin was increased. Unclear etiology at this time but likely suspicion is medication induced possibly related to metformin, and worsened by magnesium oxide. Last colonoscopy was greater than 10 years ago, patient is due for one. However at this time patient had recently been started on Brilinta and had cardiac stents placed, would defer colonoscopy at this time. Stool cultures obtained. Continue stool bulking with Metamucil, may need to add Questran. Recommend discontinuing metformin. Current Visit: Yes Status: Acute Code(s): R19.7 - DIARRHEA, UNSPECIFIED SNOMED Code(s): 92213622 (2) Chest pain Current Visit: Yes Status: Acute Code(s): R07.9 - CHEST PAIN, UNSPECIFIED SNOMED Code(s): 60908964 (3) Hyperglycemia Current Visit: Yes Status: Acute Code(s): R73.9 - HYPERGLYCEMIA, UNSPECIFIED SNOMED Code(s): 74443308 (4) Hypokalemia Current Visit: Yes Status: Acute Code(s): E87.6 - HYPOKALEMIA SNOMED Code(s): 48192088 (5) Hypomagnesemia Current Visit: Yes Status: Acute Code(s): E83.42 - HYPOMAGNESEMIA SNOMED Code(s): 093200748 Plan: 1. Continue symptomatic and supportive care 2. Diet as tolerated 3. Stool cultures ordered 4. Recommend discontinuing metformin, consider alternative 10 magnesium oxide 5. Continue with Metamucil for stool bulking, may need to consider adding Questran 6. Add Imodium as needed 7. No plans on colonoscopy at this time, recommend outpatient colonoscopy in the next 2-3 months unless diarrhea does not improve Thank you for this consultation, we will continue to follow. Dr. Alexei Griffith I agree with the dictator's note, documented as a scribe by Rasheeda Gan.
[2021-11-14 11:32] LABS: Basophils # (A) 0.1 k/uL (0-0.2); Basophils % (A) 1 %; Eosinophils # (A) 0.1 k/uL (0-0.7); Eosinophils % (A) 1 %; HCT 36.3 % (39.0-53.0); HGB 12.8 gm/dL (13.0-17.5); Lymphocytes % (A) 21 %; MCH 31.4 pg (25.0-35.0); MCHC 35.1 g/dL (31.0-37.0); MCV 89.4 fL (80.0-100.0); Mean Platelet Volume 8.1; Monocytes # (A) 0.4 k/uL (0-1.0); Monocytes % (A) 4 %; Neutrophils % (A) 72 %; Platelet Count 317 k/uL (150-450); RBC 4.06 m/uL (4.30-5.90); RDW 12.7 % (11.5-15.5); WBC 9.7 k/uL (3.8-10.6)
[2021-11-14 11:42] LABS: Glucose,Whole Blood 166 mg/dL (70-110)
--- NOTE | 2021-11-14 11:46 | P.PN ---
Progress Note - Text Progress Note Date: 11/14/21 Chief Complaint: Weak tired Hospital course: Patient was recently in the hospital from October 29 through November 03. Admitted with non-ST elevation SD. October 30:Admitted with chest pain. Guthrie to be possible non-STEMI.Underwent cardiac catheterization. Guthrie of intermediate to was in CAD involving the left circumflex and LAD. Decision made to do medical management. November 02:cardiac catheterization again -a stent to the left circumflex and proximal LAD. EF 55%. Patient was stable at the time of discharge. For next 4 days and patient were to felt rather tired rather slept most affect. Then patient developed diarrhea for about 4 days. Appetite has been poor. Eating only small amounts. Started getting jittery shaky dizzy lightheadedness. Getting up. Also developed an episode of chest pressure. Went to see his plant scientist Dr. Blackmon 2 days ago. Patient's amlodipine was discontinued. Today against patient started feeling unwell. Tired, rundown. No energy. Dizzy. Vomited. Decrease fluid intake. Came to the ER. PE was ruled out. Found a very low potassium, low magnesium, Accu-Cheks and 400s. No prior history of diabetes. November 13: Patient had some diarrhea overnight and this morning. Metformin was changed to be taken after meals. farxiga added. Stool sent off for C. diff negative. GI consulted. Replace potassium and magnesium. Blood pressure better. Seen by cardiology, no further change in medications November 14: Patient metformin was changed to after food yesterday. Patient still had diarrhea and at night. Refused to take the metformin this morning. Discontinued. Had received farxiga. It seems needs preauthorization. We'll start patient on Amaryl instead. Also patient does not like hospital food. Hardly eaten any breakfast. I asked him to ask his to bring some food. Seen by GI. Stool cultures ordered. Active Medications Acetaminophen (Acetaminophen Tab 325 Mg Tab) 325 mg PO Q6HR PRN PRN Reason: Fever and/ or Mild Pain Last Admin: 11/13/21 06:21 Dose: 325 mg Aspirin (Aspirin 81 Mg) 81 mg PO DAILY ROLANDO Last Admin: 11/14/21 09:09 Dose: 81 mg Dextrose/Water (Dextrose 50% Syringe 50 Ml) 25 ml IVP PER PROTOCOL PRN; Protocol PRN Reason: Hypoglycemia Dextrose/Water (Dextrose 50% Syringe 50 Ml) 50 ml IVP PER PROTOCOL PRN; Protocol PRN Reason: Hypoglycemia Enoxaparin Sodium (Enoxaparin 40 Mg/0.4 Ml Syringe) 40 mg SQ DAILY [facility] Last Admin: 11/14/21 09:10 Dose: 40 mg Glimepiride (Glimepiride 4 Mg Tab) 4 mg PO [facility] Sodium Chloride (Saline 0.45%) 1,000 mls @ 75 mls/hr IV .[id number] [facility] Last Admin: 11/14/21 09:10 Dose: 125 mls/hr Insulin Aspart (Insulin Aspart (Novolog) 100 Unit/Ml Vial) 0 unit SQ ACHS [facility]; Protocol Last Admin: 11/14/21 06:17 Dose: 1 unit Lisinopril (Lisinopril 10 Mg Tab) 10 mg PO HS [facility] Last Admin: 11/13/21 19:56 Dose: 10 mg Magnesium Oxide (Magnesium Oxide 400 Mg Tab) 400 mg PO TID [facility] Metoprolol Succinate (Metoprolol Succinate (Er) 25 Mg Tab.Er.24h) 25 mg PO DAILY [facility] Last Admin: 11/14/21 09:09 Dose: 25 mg Nicotine (Nicotine 21mg/24hr Patch) 1 patch TRANSDERM DAILY [facility] Last Admin: 11/14/21 09:10 Dose: 1 patch Nitroglycerin (Nitroglycerin Sl Tabs 0.4 Mg Tab) 0.4 mg SUBLINGUAL Q5M PRN PRN Reason: Chest Pain Pantoprazole Sodium (Pantoprazole 40 Mg Tablet) 40 mg PO - [facility] Last Admin: 11/14/21 06:17 Dose: 40 mg Psyllium Hydrophilic Mucilloid (Psyllium Husk 100% 6 Gm Packet) 6 gm PO DAILY [facility] Last Admin: 11/14/21 09:10 Dose: 6 gm Tamsulosin HCl (Tamsulosin 0.4 Mg Cap.Er.24h) 0.4 mg PO DAILY [facility] Last Admin: 11/14/21 09:09 Dose: 0.4 mg Ticagrelor (Ticagrelor 90 Mg Tab) 90 mg PO BID [facility] Last Admin: 11/14/21 09:09 Dose: 90 mg Past medical history to include: CAD with stent to left circumflex and LAD, BPH, chronic lumbar osteoarthritis, GERD, essential hypertension, hyperlipidemia Social history: Patient smoking up to 2 weeks ago. . Family history: Reviewed, noncontributory to presentation Physical examination: VITAL SIGNS: 98.9, 77, 16, 03/14/1983, 96% room air GENERAL: Reclining in bed, awake EYES: Pupils equal. Conjunctiva normal. HEENT: External appearance of nose and ears normal, oral cavity dry mucous. NECK: JVD not raised; masses not palpable. HEART: First and second heart sounds are normal; no edema. LUNGS: Respiratory rate normal; decreased breath sounds. ABDOMEN: Soft, nontender, liver spleen not palpable, no masses palpable. PSYCH: Alert and oriented x3; mood and affect tiredl. MUSCULOSKELETAL:No Clubbing/cyanosis;muscles-grossly intact INVESTIGATIONS, reviewed in the clinical context: November 14: Sodium 133 progression 3.6 creatinine 0.51 magnesia 1 white count 9.7 November 13: Sodium 135 progression 3.2 creatinine 0.57 magnesia 1 triglycerides 348 LDL 22.3 C. diff: Negative. COVID-19 PCR: Not detected White count 11 hemoglobin 14.6 platelets 365 sodium 133 potassium 2.7 BUN 21 creatinine 0.8 date lactic acid 2.8 magnesium less than 0.4 Troponin I 0.013, less than 0.012 EKG tracing personally reviewed by me-ST segment depression in inferolateral leads Chest x-ray film personally reviewed by me-hyperinflation Chest CT angiogram: Negative for PE From recent admission LDL 78 triglycerides 249 HDL 29 2-D echocardiogram: Normal motion abnormality. EF 55%. Assessment and plan: -Severe hypokalemia from patient having diarrhea a few days ago and decreased oral intake: Better Replace potassium IV and oral. -Severe hypomagnesemia from having diarrhea and decreased oral intake Increase magnesium oxide 2 3 times a day -Acute diarrhea. Negative for C. diff. Metformin discontinued Consult GI -Severe myopathy from hypokalemia and hypomagnesemia causing muscle weakness: Improving Replace electrolytes -Clinical orthostatic from volume loss IV fluids -Nonketotic hyperosmolar hyperglycemia New Diagnosis of diabetes. Diabetic diet. IV fluids. Metformin. Add farxiga -Diabetes mellitus type 2, uncontrolled, new diagnosis Metformin gives diarrhea. Discontinue. farxiga needs preauthorization. Start Amaryl. -CAD - with stent to left circumflex and LAD. 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 Blackmon. Aspirin, Brilinta, Toprol-XL -Acute non-STEMI, possibly plaque rupture on 10/29/2021 Aspirin, Lipitor, Plavix -BPH Flomax 0.4 mg daily -Chronic lumbar osteoarthritis. Follow-up with Dr. Wray-patient's information technology administrator -GERD Prevacid -COPD in the previous smoker Albuterol when necessary -Essential hypertension Zestril, Toprol-XL decreased to 25. Norvasc has been discontinued -Hyperlipidemia Lipitor Metformin discontinued. farxiga discontinued. Start Amaryl. Care was discussed at length with the patient. Did explain to him that I wanted to try inexpensive medicine like metformin before i stopped it. GI ordered stool studies. Have the patient Francisco's like to bring given some food as he does not like hospital food.
--- NOTE | 2021-11-14 11:48 | P.PN ---
Subjective This is a pleasant 66-year-old male past medical history significant for coronary artery disease s/p PCI to mid left circumflex and proximal LAD on , hypertension, dyslipidemia, GERD, BPH, bladder cancer, tobacco dependence. He follows with Dr. Peng. We have been asked to see in consultation for chest pain. Patient presents to the emergency department with complaints of diarrhea for 3-4 days, decreased PO intake, nausea, lightheadedness, dizziness, pre-syncope. He states that yesterday he was getting ready to watch the joblocal game and he had sudden onset of diarrhea again. He states after this he had symptoms of lightheadedness, felt as if he may pass out. His brought him to the ER and he was found to have hypokalemia, hypomagnesemia and hyperglycemia. He did endorse some associated shortness of breath. Denies any chest pain, palpitations. He states after the hospital he did feel "run down" and "tired" not back to his baseline yet and then diarrhea occurred. His chlorathalidone and amlodipine was recently discontinued secondary to orthostatic hypotension in the office. He denies history of Diabetes. Compliant with his medications. This morning, patient state his symptoms have resolved. He was able to eat two meals without difficulty. DIAGNOSTICS * Echocardiogram 10/30/2021 revealed EF of 55%, mild LVH, no significant wall motion or valvular abnormalities * Cardiac catheterization: On 10/30/2021 that revealed Intermediate two-vessel CAD involving the LCx and LAD with the LAD lesion appeared to be somewhat worse, Mildly elevated left-sided filling pressure. Patient was taken back to carpenter labor supervisor for continued chest pain requiring nitro drip on 11/02/2021, FFR was performed on both LAD and LCx and patient underwent stenting to the mid left circumflex, stenting of the proximal LAD. 11/14 Patient seen and examined at bedside, no acute distress. Having significant diarrhea yesterday attributed it to be worse secondary to starting metformin yesterday. He has not had any chest pain or shortness of breath. PHYSICAL EXAMINATION Vitals reviewed CONSTITUTIONAL: No apparent distress. HEENT: Head is normocephalic. No JVD. CHEST EXAMINATION: Lungs are clear to auscultation. No chest wall tenderness is noted on palpation or with deep breathing. HEART EXAMINATION: Regular rate and rhythm. S1, S2 heard. No murmurs, gallops or rub. ABDOMEN: Soft, nontender. Positive bowel sounds. EXTREMITIES: no lower extremity edema and no calf tenderness. SKIN: warm, dry NEUROLOGIC EXAMINATION: Patient is awake, alert and oriented x3. ASSESSMENT Symptoms of lightheadedness, dizziness, in the setting of hypokalemia, h ypomagnesemia and hyperglycemia Diarrhea Coronary artery disease s/p PCI to mid left circumflex and proximal LAD on 11/02/2021 Tobacco dependence Hypertension Dyslipidemia GERD BPH Type 2 Diabetes, new diagnosis PLAN Consult for chest pain, patient denies any chest pain. Troponin negative x 3. Continue home cardiac medications Continue dual antiplatelet therapy with aspirin Brilinta Monitor renal function and electrolytes We will follow the patient as needed. Please re-consult if needed. On discharge, patient to follow up outpatient with Dr. Peng Nurse practitioner note has been reviewed by physician. Signing provider agrees with the documented findings, assessment, and plan of care. Objective - Vital Signs Vital signs: Vital Signs Temp 98.7 F 11/14/21 11:42 Pulse 79 11/14/21 11:42 Resp 16 11/14/21 11:42 BP 144/75 11/14/21 11:42 Pulse Ox 96 11/14/21 11:42 FiO2 Intake & Output 11/13/21 11/14/21 11/14/21 18:59 06:59 18:59 Intake Total 240 240 Output Total 0 0 Balance 240 240 Weight 68.492 kg Intake: Oral 240 240 Output: Urine 0 0 Stool 0 Urine/Stool Mix 0 Emesis 0 Other: Voiding Method Toilet Toilet Toilet # Voids 2 0 # Bowel Movements 2 - Labs CBC & Chem 7: 11/14/21 07:53 11/14/21 07:53 Labs: Abnormal Lab Results - Last 24 Hours (Table) 11/13/21 11/13/21 11/13/21 Range/Units 08:16 16:17 19:50 RBC (4.30-5.90) m/uL Hgb (13.0-17.5) gm/dL Hct (39.0-53.0) % Sodium (137-145) mmol/L Carbon Dioxide (22-30) mmol/L BUN (9-20) mg/dL Creatinine (0.66-1.25) mg/dL Glucose (74-99) mg/dL POC Glucose (mg/dL) 162 H 182 H (70-110) mg/dL Calcium (8.4-10.2) mg/dL Magnesium (1.6-2.3) mg/dL Triglycerides 348.00 H (0.00-149.00) mg/dL VLDL Cholesterol, Calc 69.60 H (5.00-40.00) mg/dL HDL Cholesterol 18.10 L (40.00-60.00) mg/dL 11/14/21 11/14/21 11/14/21 Range/Units 05:44 07:53 07:53 RBC 4.06 L (4.30-5.90) m/uL Hgb 12.8 L (13.0-17.5) gm/dL Hct 36.3 L (39.0-53.0) % Sodium 133 L (137-145) mmol/L Carbon Dioxide 21 L (22-30) mmol/L BUN 6 L (9-20) mg/dL Creatinine 0.51 L (0.66-1.25) mg/dL Glucose 197 H (74-99) mg/dL POC Glucose (mg/dL) 196 H (70-110) mg/dL Calcium 8.3 L (8.4-10.2) mg/dL Magnesium 1.0 L (1.6-2.3) mg/dL Triglycerides (0.00-149.00) mg/dL VLDL Cholesterol, Calc (5.00-40.00) mg/dL HDL Cholesterol (40.00-60.00) mg/dL 11/14/21 Range/Units 11:41 RBC (4.30-5.90) m/uL Hgb (13.0-17.5) gm/dL Hct (39.0-53.0) % Sodium (137-145) mmol/L Carbon Dioxide (22-30) mmol/L BUN (9-20) mg/dL Creatinine (0.66-1.25) mg/dL Glucose (74-99) mg/dL POC Glucose (mg/dL) 166 H (70-110) mg/dL Calcium (8.4-10.2) mg/dL Magnesium (1.6-2.3) mg/dL Triglycerides (0.00-149.00) mg/dL VLDL Cholesterol, Calc (5.00-40.00) mg/dL HDL Cholesterol (40.00-60.00) mg/dL
[2021-11-14] MEDS ORDERED: LOPERAMIDE 2 MG CAP PO PRN (12:56)
[2021-11-14 16:42] LABS: Glucose,Whole Blood 165 mg/dL (70-110)
[2021-11-14 19:28] LABS: Glucose,Whole Blood 233 mg/dL (70-110)
[2021-11-14] MEDS: lisinopriL 10 MG TAB PO SCH (20:11)
[2021-11-14 21:18] VITALS: TEMP 98.7
[2021-11-15 04:31] VITALS: BP 116/76; PULSE 62; RESP 17
[2021-11-15 05:39] LABS: Glucose,Whole Blood 172 mg/dL (70-110)
[2021-11-15] MEDS: PANTOPRAZOLE 40 MG TABLET PO SCH (06:11)
[2021-11-15] MEDS: INSULIN ASPART (NovoLOG) 100 UNIT/ML VIAL SQ SCH (06:12)
[2021-11-15] MEDS ORDERED: GLIMEPIRIDE 4 MG TAB PO SCH (07:30)
[2021-11-15] MEDS: METOPROLOL SUCCINATE (ER) 25 MG TAB.ER.24H PO SCH (08:24)
[2021-11-15] MEDS: NICOTINE 21MG/24HR PATCH TRANSDERM SCH (08:24)
[2021-11-15] MEDS: ASPIRIN 81 MG PO SCH (08:24)
[2021-11-15] MEDS: ENOXAPARIN 40 MG/0.4 ML SYRINGE SQ SCH (08:24)
[2021-11-15] MEDS: MAGNESIUM OXIDE 400 MG TAB PO SCH (08:24)
[2021-11-15] MEDS: TICAGRELOR 90 MG TAB PO SCH (08:25)
[2021-11-15] MEDS: PSYLLIUM HUSK 100% 6 GM PACKET PO SCH (08:25)
[2021-11-15] MEDS: TAMSULOSIN 0.4 MG CAP.ER.24H PO SCH (08:25)
--- NOTE | 2021-11-15 20:59 | P.DS ---
Providers Date of admission: 11/12/21 13:36 Expected date of discharge: 11/15/21 Attending physician: Tonio Arambula Consults: 11/12/21 13:36 Consult Physician Urgent Consulting Provider: [facility] Consult Reason/Comments: Chest pain Do you want consulting provider notified?: Yes 11/13/21 17:41 Consult Physician Routine Consulting Provider: Renae Griffith Consult Reason/Comments: Acute diarrhea Do you want consulting provider notified?: Yes Primary care physician: Maximilian [facility] Hospital Course: Chief Complaint: Weak tired Hospital course: Patient was recently in the hospital from October 29 through November 03. Admitted with non-ST elevation SC. October 30:Admitted with chest pain. [place] to be possible non-STEMI.Underwent cardiac catheterization. [place] of intermediate to was in CAD involving the left circumflex and LAD. Decision made to do medical management. November 02:cardiac catheterization again -a stent to the left circumflex and proximal LAD. EF 55%. Patient was stable at the time of discharge. For next 4 days and patient were to felt rather tired rather slept most affect. Then patient developed diarrhea for about 4 days. Appetite has been poor. Eating only small amounts. Started getting jittery shaky dizzy lightheadedness. Getting up. Also developed an episode of chest pressure. 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 Blackmon 2 days ago. Patient's amlodipine was discontinued. Today against patient started feeling unwell. Tired, rundown. No energy. Dizzy. Vomited. Decrease fluid intake. Came to the ER. PE was ruled out. Found a very low potassium, low magnesium, Accu-Cheks and 400s. No prior history of diabetes. November 13: Patient had some diarrhea overnight and this morning. Metformin was changed to be taken after meals. farxiga added. Stool sent off for C. diff negative. GI consulted. Replace potassium and magnesium. Blood pressure better. Seen by cardiology, no further change in medications November 14: Patient metformin was changed to after food yesterday. Patient still had diarrhea and at night. Refused to take the metformin this morning. Discontinued. Had received farxiga. It seems needs preauthorization. We'll start patient on Amaryl instead. Also patient does not like hospital food. Hardly eaten any breakfast. I asked him to ask his to bring some food. Seen by GI. Stool cultures ordered. November 15: Patient received Amaryl today. Feeling good. No diarrhea. Medications adjusted. Discussed with patient. Questions answered. Patient to do Accu-Cheks. Follow up with his family doctor and cardiology. Accu-Chek this morning 172 Discussion and discharge planning more than 35 minutes Past medical history to include: CAD with stent to left circumflex and LAD, BPH, chronic lumbar osteoarthritis, GERD, essential hypertension, hyperlipidemia Social history: Patient smoking up to 2 weeks ago. . Family history: Reviewed, noncontributory to presentation Physical examination: VITAL SIGNS: 98.7, 62, 17, 116/76, 98% room air GENERAL: Laying in bed, awake EYES: Pupils equal. Conjunctiva normal. HEENT: External appearance of nose and ears normal, oral cavity dry mucous. NECK: JVD not raised; masses not palpable. HEART: First and second heart sounds are normal; no edema. LUNGS: Respiratory rate normal; decreased breath sounds. ABDOMEN: Soft, nontender, liver spleen not palpable, no masses palpable. PSYCH: Alert and oriented x3; mood and affect tiredl. MUSCULOSKELETAL:No Clubbing/cyanosis;muscles-grossly intact INVESTIGATIONS, reviewed in the clinical context: November 14: Sodium 133 progression 3.6 creatinine 0.51 magnesia 1 white count 9.7 November 13: Sodium 135 progression 3.2 creatinine 0.57 magnesia 1 triglycerides 348 LDL 22.3 C. diff: Negative. COVID-19 PCR: Not detected White count 11 hemoglobin 14.6 platelets 365 sodium 133 potassium 2.7 BUN 21 creatinine 0.8 date lactic acid 2.8 magnesium less than 0.4 Troponin I 0.013, less than 0.012 EKG tracing personally reviewed by me-ST segment depression in inferolateral leads Chest x-ray film personally reviewed by me-hyperinflation Chest CT angiogram: Negative for PE From recent admission LDL 78 triglycerides 249 HDL 29 2-D echocardiogram: Normal motion abnormality. EF 55%. Assessment and plan: -Severe hypokalemia from patient having diarrhea a few days ago and decreased oral intake: Corrected Replace potassium IV and oral. -Severe hypomagnesemia from having diarrhea and decreased oral intake: Improved Increase magnesium oxide 2 3 times a day -Acute diarrhea. Negative for C. diff. Metformin discontinued: Improved Consult GI -Severe myopathy from hypokalemia and hypomagnesemia causing muscle weakness: Im proved Replace electrolytes -Clinical orthostatic from volume loss: Corrected IV fluids -Nonketotic hyperosmolar hyperglycemia New Diagnosis of diabetes. Diabetic diet. IV fluids. -Diabetes mellitus type 2, uncontrolled, new diagnosis Metformin gives diarrhea. Discontinue. farxiga needs preauthorization. Given Amaryl 4 mg a day. -CAD - with stent to left circumflex and LAD. 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 Aspirin, Brilinta, Toprol-XL -Acute non-STEMI, possibly plaque rupture on 10/29/2021 Aspirin, Lipitor, Plavix -BPH Flomax 0.4 mg daily -Chronic lumbar osteoarthritis. Follow-up with Dr. Wray-patient's surgical aide -GERD Prevacid -COPD in the previous smoker Albuterol when necessary -Essential hypertension Zestril, Toprol-XL decreased to 25. Norvasc has been discontinued -Hyperlipidemia Lipitor Disposition: Home Plan - Discharge Summary New Discharge Prescriptions: New Metoprolol Succinate (ER) [Toprol XL] 25 mg PO DAILY #30 tab Magnesium Oxide [Mag-Ox] 400 mg PO TID #30 tab Atorvastatin Calcium [Lipitor] 40 mg PO HS #30 tab Glimepiride [Amaryl] 4 mg PO DAILY #30 tab Continue Aspirin 81 mg PO DAILY #90 tab Ticagrelor [Brilinta] 90 mg PO BID #60 tab Acetaminophen Tab [Tylenol] 325 mg PO Q6HR PRN tab PRN Reason: Fever And/ Or Pain Tamsulosin [Flomax] 0.4 mg PO DAILY Lansoprazole [Prevacid 24Hr] 30 mg PO DAILY Nitroglycerin Sl Tabs [Nitrostat] 0.4 mg SUBLINGUAL Q5M PRN #25 tab PRN Reason: Chest Pain lisinopriL [Zestril] 10 mg PO DAILY #90 tab Nicotine 21Mg/24Hr Patch [Habitrol] 1 patch TRANSDERM DAILY #14 patch Discontinued Simvastatin [Zocor] 20 mg PO HS Metoprolol Succinate (ER) [Toprol XL] 50 mg PO DAILY #90 tab Discharge Medication List Lansoprazole [Prevacid 24Hr] 30 mg PO DAILY 10/29/21 [History] Tamsulosin [Flomax] 0.4 mg PO DAILY 10/29/21 [History] Acetaminophen Tab [Tylenol] 325 mg PO Q6HR PRN tab 11/03/21 [Rx] Aspirin 81 mg PO DAILY #90 tab 11/03/21 [Rx] Nicotine 21Mg/24Hr Patch [Habitrol] 1 patch TRANSDERM DAILY #14 patch 11/03/21 [Rx] Nitroglycerin Sl Tabs [Nitrostat] 0.4 mg SUBLINGUAL Q5M PRN #25 tab 11/03/21 [Rx] Ticagrelor [Brilinta] 90 mg PO BID #60 tab 11/03/21 [Rx] lisinopriL [Zestril] 10 mg PO DAILY #90 tab 11/03/21 [Rx] Atorvastatin Calcium [Lipitor] 40 mg PO HS #30 tab 11/15/21 [Rx] Glimepiride [Amaryl] 4 mg PO DAILY #30 tab 11/15/21 [Rx] Magnesium Oxide [Mag-Ox] 400 mg PO TID #30 tab 11/15/21 [Rx] Metoprolol Succinate (ER) [Toprol XL] 25 mg PO DAILY #30 tab 11/15/21 [Rx] Follow up Appointment(s)/Referral(s): Rinku Peng MD [STAFF PHYSICIAN] - 3 Weeks Maximilian Gibbs MD [Primary Care Provider] - 1-2 days Activity/Diet/Wound Care/Special Instructions: Diabetic testing supplies - [facility] - [phone] ac- daily ; keep log Discharge Disposition: HOME WITH HOME HEALTH SERVICES
== END 2021-11-15 08:57 | disposition home or self-care (01) | DRG 637 ==
LOC: EC 11:21 → 3SCARD 13:36
PROVIDERS: ADMIT Hospitalist; ATTEND Hospitalist
DX: E11.00 Type 2 diabetes mellitus with hyperosmolarity without nonketotic hyperglycemic-hyperosmolar coma (NKHHC) (principal); I21.4 Non-ST elevation (NSTEMI) myocardial infarction; E87.1 Hypo-osmolality and hyponatremia; C67.9 Malignant neoplasm of bladder, unspecified; J44.9 Chronic obstructive pulmonary disease, unspecified; Z20.822 Contact with and (suspected) exposure to COVID-19; E83.42 Hypomagnesemia; E87.6 Hypokalemia; N40.0 Benign prostatic hyperplasia without lower urinary tract symptoms; M47.816 Spondylosis without myelopathy or radiculopathy, lumbar region; K21.9 Gastro-esophageal reflux disease without esophagitis; I10 Essential (primary) hypertension; E78.5 Hyperlipidemia, unspecified; I25.10 Atherosclerotic heart disease of native coronary artery without angina pectoris; I95.1 Orthostatic hypotension; R42 Dizziness and giddiness; I25.2 Old myocardial infarction; Z79.82 Long term (current) use of aspirin; Z79.02 Long term (current) use of antithrombotics/antiplatelets; Z79.899 Other long term (current) drug therapy; Z95.5 Presence of coronary angioplasty implant and graft; Z87.891 Personal history of nicotine dependence
CPT/HCPCS: 36415; 71046; 71275; 80048; 80053; 80061; 83036; 83605; 83735; 83880; 84484; 85025; 85610; 85730; 87324; 87635; 93005; 96365; 96366; 96368; 99291

== ENCOUNTER 2022-03-13 07:30 | Day surgery (SDC) | payer BC ==
[2022-03-13] MEDS ORDERED: LACTATED RINGERS 1,000 ML IV SCH (07:51)
[2022-03-13 08:16] LABS: Glucose,Whole Blood 129 mg/dL (70-110)
[2022-03-13 08:18] VITALS: TEMP 96.9
[2022-03-13] MEDS ORDERED: GLYCOPYRROLATE 0.2 MG/ML 2 ML VIAL ONE (08:45)
[2022-03-13] MEDS ORDERED: PROPOFOL 10 MG/ML 20 ML VIAL IV ONE (08:45)
--- NOTE | 2022-03-13 09:02 | P.PCN ---
Date of Procedure: 03/13/22 Procedure(s) Performed: BRIEF HISTORY: Patient is a 66-year-old pleasant white male scheduled for an elective colonoscopy as a part of evaluation of prior history of colon polyps. His last coloscopy was 3 years ago and was noted to have multiple colon polyps and biopsies revealed adenoma.. PROCEDURE PERFORMED: Colonoscopy. PREOPERATIVE DIAGNOSIS: History of colon polyps. IV sedation per Anesthesia. PROCEDURE: After informed consent was obtained, the patient, was brought into the endoscopy unit. IV sedation was administered by Anesthesia under continuous monitoring. Digital rectal examination was normal. Initially the Olympus CF-160 flexible video colonoscope was then inserted in the rectum, gradually advanced into the cecum without any difficulty. Careful examination was performed as the scope was gradually being withdrawn. Ileocecal valve and the appendiceal orifice were visualized and appeared normal. Prep was excellent. Mucosa of the cecum, ascending colon, transverse colon, descending colon, sigmoid colon, and rectum appeared normal. Scattered sigmoidal diverticulosis. Retroflexion was performed in the rectum and no lesions were seen. The patient tolerated the procedure well. IMPRESSION: Normal-appearing colon from rectum to cecum no evidence of colorectal neoplasia . Scattered sigmoidal diverticulosis. RECOMMENDATIONS: Findings of this examination were discussed with the patient as well as his family. He was advised to repeat colonoscopy in 5 years from now because of prior history of multiple colon polyps.
[2022-03-13 09:12] VITALS: PULSE 58; RESP 16
[2022-03-13 09:20] VITALS: BP 151/80
== END 2022-03-13 09:37 | disposition home or self-care (01) ==
LOC: ORWHC2ENDO 07:30
PROVIDERS: ATTEND Internal Medicine Gastroenterology
DX: Z12.11 Encounter for screening for malignant neoplasm of colon (principal); K57.30 Diverticulosis of large intestine without perforation or abscess without bleeding; Z86.010 Personal history of colon polyps; I25.10 Atherosclerotic heart disease of native coronary artery without angina pectoris; I10 Essential (primary) hypertension; E78.5 Hyperlipidemia, unspecified; E11.9 Type 2 diabetes mellitus without complications; Z87.448 Personal history of other diseases of urinary system; M47.9 Spondylosis, unspecified; F17.200 Nicotine dependence, unspecified, uncomplicated; K21.9 Gastro-esophageal reflux disease without esophagitis; N40.0 Benign prostatic hyperplasia without lower urinary tract symptoms; Z79.02 Long term (current) use of antithrombotics/antiplatelets; Z79.82 Long term (current) use of aspirin; Z79.811 Long term (current) use of aromatase inhibitors; Z79.891 Long term (current) use of opiate analgesic; Z79.899 Other long term (current) drug therapy; Z79.1 Long term (current) use of non-steroidal anti-inflammatories (NSAID); Z79.84 Long term (current) use of oral hypoglycemic drugs; Z79.83 Long term (current) use of bisphosphonates; Z98.62 Peripheral vascular angioplasty status; Z98.890 Other specified postprocedural states
CPT/HCPCS: 45378; J2704

== ENCOUNTER 2024-02-17 21:58 | Inpatient (IN) | payer BC, MEDICARE ==
[2024-02-17] MEDS: lisinopriL 10 MG TAB PO STA (22:45)
[2024-02-17] MEDS: ACETAMINOPHEN TAB 500 MG TAB PO STA (22:45)
[2024-02-17] MEDS: SODIUM CHLORIDE 0.9% 1,000 ML IV STA (22:47)
[2024-02-17] MEDS: AZITHROMYCIN 500 MG in SODIUM CHLORIDE 0.9% 250 ML IVPB STA (22:48)
[2024-02-17 22:49] LABS: Basophils % (A) 0 %; Eosinophils # (A) 0.1 k/uL (0-0.7); Eosinophils % (A) 1 %; HCT 46.3 % (39.0-53.0); HGB 15.5 gm/dL (13.0-17.5); Lymphocytes # (A) 0.6 k/uL (1.0-4.8); Lymphocytes % (A) 6 %; MCH 30.4 pg (25.0-35.0); MCHC 33.4 g/dL (31.0-37.0); MCV 91.1 fL (80.0-100.0); Mean Platelet Volume 6.8; Monocytes # (A) 0.3 k/uL (0-1.0); Monocytes % (A) 3 %; Neutrophils # (A) 9.7 k/uL (1.3-7.7); Neutrophils % (A) 90 %; Platelet Count 226 k/uL (150-450); RBC 5.08 m/uL (4.30-5.90); WBC 10.7 k/uL (3.8-10.6)
--- NOTE | 2024-02-17 22:57 | ED ---
General Adult HPI - General Chief complaint: Fever Stated complaint: Hypertension Time Seen by Provider: 02/17/24 22:10 Source: patient Mode of arrival: ambulatory Limitations: no limitations - History of Present Illness Initial comments: Patient is a 68-year-old with a past medical history of hypertension, diabetes, CAD presenting today for fever. Patient states that he and his just recently were in [place] and today were traveling back. At the airport patient became shaky and weak. He was placed on supplemental oxygen by EMS and upon arriving at the airport in [place] was met by paramedics. They told him his blood sugar and his blood pressure were high. The patient currently endorses a cough x 4 days, productive of thick sputum. No hemoptysis. States for the last month he has had chronic diarrhea but denies black or bloody stools. Has had associated upper abdominal pain, states he had a CT and ultrasound done for this but did not show any acute findings. He has an outpatient MRI scheduled for this Saturday. States he has been unable to follow-up with GI as directed due to his primary care provider retiring and being unable to refer him. The patient currently denies shortness of breath or chest pain, lower extremity swel ling, recent hospitalizations, history of blood clots, he is not a current smoker having quit when he had his heart attack, denies history of cancer, is not on blood thinners. Is due to take 10 mg of senna Carrie this evening that he has not yet taken. No antipyretics taken prior to arrival. Denies any episodes of emesis dysuria or hematuria. Denies changes in vision, lightheadedness or dizziness, numbness or weakness, slurred speech. - Related Data Home Medications Medication Instructions Recorded Confirmed Lansoprazole [Prevacid 24Hr] 30 mg PO DAILY 10/29/21 03/09/22 Tamsulosin [Flomax] 0.4 mg PO DAILY 10/29/21 03/09/22 Atorvastatin Calcium [Lipitor] 40 mg PO DAILY 03/09/22 03/09/22 Clopidogrel [Plavix] 75 mg PO DAILY 03/09/22 03/09/22 Empagliflozin [Jardiance] 1 tab PO DAILY 03/09/22 03/09/22 Levothyroxine Sodium 25 mcg PO DAILY 03/09/22 03/09/22 Loperamide HCl [Loperamide] 2 tab PO DAILY 03/09/22 03/09/22 Nitroglycerin Sl Tabs [Nitrostat] 1 tab PO Q5M PRN 03/09/22 03/09/22 Previous Rx's Medication Instructions Recorded Acetaminophen Tab [Tylenol] 325 mg PO Q6HR PRN tab 11/03/21 Aspirin 81 mg PO DAILY #90 tab 11/03/21 Nitroglycerin Sl Tabs [Nitrostat] 0.4 mg SUBLINGUAL Q5M PRN #25 tab 11/03/21 lisinopriL [Zestril] 10 mg PO DAILY #90 tab 11/03/21 Magnesium Oxide [Mag-Ox] 400 mg PO TID #30 tab 11/15/21 Metoprolol Succinate (ER) [Toprol 25 mg PO DAILY #30 tab 11/15/21 XL] Allergies Allergy/AdvReac Type Severity Reaction Status Date / Time No Known Allergies Allergy Verified 02/17/24 22:05 Review of Systems ROS Statement: Those systems with pertinent positive or pertinent negative responses have been documented in the HPI. ROS Other: All systems not noted in ROS Statement are negative. Past Medical History Past Medical History: Coronary Artery Disease (CAD), Cancer, Diabetes Mellitus, Hyperlipidemia, Myocardial Infarction ([place]) Additional Past Medical History / Comment(s): Bladder CA mi x 2 in 2021 Last Myocardial Infarction Date:: 10/29/21 History of Any Multi-Drug Resistant Organisms: None Reported Past Surgical History: Heart Catheterization With Stent Additional Past Surgical History / Comment(s): stents x2 bladder ca surgery, pain procedures Past Anesthesia/Blood Transfusion Reactions: No Reported Reaction Date of Last Stent Placement:: 10/29/21 Past Psychological History: No Psychological Hx Reported Smoking Status: Current every day smoker, Former smoker Past Alcohol Use History: None Reported Past Drug Use History: None Reported - Past Family History Father History Unknown: Yes Mother History Unknown: Yes General Exam - General Exam Comments Initial Comments: PE: CONSTITUTIONAL: No apparent distress, well appearing SKIN: Warm, dry, no jaundice, hives or petechiae EYES: Pupils are equally round, extraocular movements intact without nystagmus, clear conjunctiva, non-icteric sclera HENT: Normocephalic, atraumatic, moist mucus membranes, oropharynx clear without exudates NECK: , Full range of motion, normal appearance PULMONARY: Scant rhonchi in right lower lung base, no wheezes, crackles or stridor, normal excursion no accessory muscle use CARDIOVASCULAR: Tachycardia, regular rate, rhythm, normal S1 and S2. No appreciated murmurs, rubs or gallops. Strong radial pulses with intact distal perfusion. No lower extremity edema GASTROINTESTINAL: Soft, active bowel sounds throughout, non-tender, non- distended, no palpable masses, no rebound or guarding. No hepatosplenomegaly MUSCULOSKELETAL: Extremities have no gross deformity, no edema, redness, or swelling. No calf swelling NEUROLOGIC:_a/o x 3, GCS 15, normal mentation and speech. Moves all extremities x 4 without motor or sensory deficit PSYCHIATRIC:_normal mood and affect, thought process is clear and linear Limitations: no limitations Course Vital Signs 02/17/24 02/17/24 02/17/24 22:02 22:25 23:21 Temperature 102.9 F H 100.6 F H Pulse Rate 119 H 113 H 107 H Respiratory 18 20 20 Rate Blood Pressure 153/108 185/85 150/79 O2 Sat by Pulse 89 L 92 L 94 L Oximetry 02/18/24 00:33 Temperature 99.6 F Pulse Rate 85 Respiratory 18 Rate Blood Pressure 144/82 O2 Sat by Pulse 96 Oximetry EKG Findings - EKG Comments: EKG Findings:: Sinus rhythm, rate 95 bpm, SD interval 132 ms QRS duration 137 ms QT/QTc 367/420 ms, borderline left axis deviation, right bundle branch block, no STEMI, questionable [address] depression in lead V3 without reciprocal elevation compared to EKG performed on 11/13/2021, right bundle branch block and [address] depression are new from prior Medical Decision Making - Medical Decision Making Was pt. sent in by a medical professional or institution (, PA, BITE BLOCK MAKER, urgent care, hospital, or assisted...) When possible be specific @ -No Did you speak to anyone other than the patient for history (EMS, parent, family, police, friend...)? What history was obtained from this source @ -No Did you review nursing and triage notes (agree or disagree)? Why? @ -I reviewed and agree with nursing and triage notes Were old charts reviewed (outside hosp., previous admission, EMS record, old EKG, old radiological studies, urgent care reports/EKG's, assisted records)? Report findings @ -Medical records reviewed Differential Diagnosis (chest pain, altered mental status, abdominal pain women, abdominal pain men, vaginal bleeding, weakness, fever, dyspnea, syncope, headache, dizziness, GI bleed, back pain, seizure, CVA, palpatations, mental health, musculoskeletal)? @Differential Fever: Pneumonia, viral URI, endocarditis, myocarditis, pericarditis, otitis media , pulmonary embolism this is not meant to be an all-inclusive list. EKG interpreted by me (3pts min.). @ -As above X-rays interpreted by me (1pt min.). @ -None done CT interpreted by me (1pt min.). @Bilateral lower lung consolidations U/S interpreted by me (1pt. min.). @ -None done What testing was considered but not performed or refused? (CT, X-rays, U/S, labs)? Why? @ -None What meds were considered but not given or refused? Why? @ -None Did you discuss the management of the patient with other professionals (professionals i.e. , PA, BITE BLOCK MAKER, lab, RT, psych nurse, health care social worker, resident programs assistant, teacher, special loan officer, case manager specialist)? Give summary @ -No Was smoking cessation discussed for >3mins.? @ -No Was critical care preformed (if so, how long)? Yes 35 minutes Were there social determinants of health that impacted care today? How? (Homelessness, low income, unemployed, alcoholism, drug addiction, transportation, low edu. Level, literacy, decrease access to med. care, [facility], rehab)? @ -No Was there de-escalation of care discussed even if they declined (Discuss DNR or withdrawal of care, Hospice)? @ -No What co-morbidities impacted this encounter? (DM, HTN, Smoking, COPD, CAD, Cancer, CVA, ARF, Chemo, Hep., AIDS, mental health diagnosis, sleep apnea, morbid obesity)? Hypertension, diabetes, CAD Was patient admitted / discharged? Hospital course, mention meds given and route, prescriptions, significant lab abnormalities, going to OR and other pertinent info. Admission- Patient is a 68-year-old gentleman presenting today for fever x 1 day, hypertension and hyperglycemia. Vitals on arrival show temp 102.9 F, heart rate 119, blood pressure 153 systolic, recheck 189 systolic, heart rate 119 pulse ox 89% on room air. On assessment patient is overall well-appearing and in no acute distress. Possible rhonchi in the right lower lung base, otherwise no wheezes present. Abdomen is soft and nontender. Patient will receive his home lisinopril for his hypertension blood culture to be obtained as patient does meet SIRS criteria with suspected pneumonia as cause of source however with recent travel fever and tachycardia and hypoxia will obtain D-dimer to assess for PE. Tylenol ordered for fever. On recheck BP 150/79. Personally reviewed patient CT scan, I see no evidence of massive or submassive PE however bilateral lower consolidations are sent. Labs significant for magnesium of 1.4. Ordered replacement 2 g IV magnesium. Given patient is mildly hypoxic, requiring 2 L oxygen nasal cannula, obvious pneumonia on CT scan plan for admission. Updated patient to plan of care - he is agreeable. Case discussed with Nevaeh Eaton, kindly accepts patient for admission. Of note CT PE study ultimately read as multilobar pneumonia, No PE however suboptimal contrast to assess for PE. Undiagnosed new problem with uncertain prognosis? @ -No Drug Therapy requiring intensive monitoring for toxicity (Heparin, Nitro, Insulin, Cardizem)? @ -No Were any procedures done? @ -No Diagnosis/symptom? @Multilobar pneumonia, sepsis, hypomagnesemia Acute, or Chronic, or Acute on Chronic? Acute Uncomplicated (without systemic symptoms) or Complicated (systemic symptoms)? Complicated Side effects of treatment? @ -No Exacerbation, Progression, or Severe Exacerbation? @ -No Poses a threat to life or bodily function? How? (Chest pain, [place], [place], pneumonia, PE, COPD, DKA, ARF, appy, cholecystitis, CVA, Diverticulitis, Homicidal, Suicidal, threat to staff... and all critical care pts) Yes, if allowed to progress untreated could lead to septic shock - Lab Data Result diagrams: 02/17/24 22:40 02/17/24 22:40 Lab Results 02/17/24 02/17/24 02/17/24 Range/Units 22:06 22:40 22:40 WBC 10.7 H (3.8-10.6) k/uL RBC 5.08 (4.30-5.90) m/uL Hgb 15.5 (13.0-17.5) gm/dL Hct 46.3 (39.0-53.0) % MCV 91.1 (80.0-100.0) fL MCH 30.4 (25.0-35.0) pg MCHC 33.4 (31.0-37.0) g/dL RDW 14.0 (11.5-15.5) % Plt Count 226 (150-450) k/uL MPV 6.8 Neutrophils % 90 % Lymphocytes % 6 % Monocytes % 3 % Eosinophils % 1 % Basophils % 0 % Neutrophils # 9.7 H (1.3-7.7) k/uL Lymphocytes # 0.6 L (1.0-4.8) k/uL Monocytes # 0.3 (0-1.0) k/uL Eosinophils # 0.1 (0-0.7) k/uL Basophils # 0.0 (0-0.2) k/uL PT (10.0-12.5) sec INR (<1.2) APTT (22.0-30.0) sec D-Dimer (<0.60) mg/L FEU Sodium 137 (137-145) mmol/L Potassium 4.3 (3.5-5.1) mmol/L Chloride 97 L (98-107) mmol/L Carbon Dioxide 25 (22-30) mmol/L Anion Gap 15 mmol/L BUN 20 (9-20) mg/dL Creatinine 0.99 (0.66-1.25) mg/dL Est GFR (CKD-EPI)AfAm >90 (>60 ml/min/1.73 sqM) Est GFR (CKD-EPI)NonAf 79 (>60 ml/min/1.73 sqM) Glucose 157 H (74-99) mg/dL POC Glucose (mg/dL) (70-110) mg/dL POC Glu Housing Officer ID Plasma Lactic Acid Dewey (0.7-2.0) mmol/L Calcium 10.0 (8.4-10.2) mg/dL Magnesium 1.4 L (1.6-2.3) mg/dL Total Bilirubin 0.6 (0.2-1.3) mg/dL AST 21 (17-59) U/L ALT 17 (4-49) U/L Alkaline Phosphatase 96 (38-126) U/L Troponin I (0.000-0.034) ng/mL NT-Pro-B Natriuret Pep 110 pg/mL Total Protein 8.6 H (6.3-8.2) g/dL Albumin 5.4 H (3.5-5.0) g/dL Urine Color Urine Appearance (Clear) Urine pH (5.0-8.0) Ur Specific Colon (1.001-1.035) Urine Protein (Negative) Urine Glucose (UA) (Negative) Urine Ketones (Negative) Urine Blood (Negative) Urine Nitrite (Negative) Urine Bilirubin (Negative) Urine Urobilinogen (<2.0) mg/dL Ur Leukocyte Esterase (Negative) Urine RBC (0-5) /hpf Urine WBC (0-5) /hpf Urine Mucus (None) /hpf Acetone, Qual (Negative) Influenza Type A (PCR) Not Detected (Not Detectd) Influenza Type B (PCR) Not Detected (Not Detectd) RSV (PCR) Not Detected (Not Detectd) SARS-CoV-2 (PCR) Not Detected (Not Detectd) 02/17/24 02/17/24 02/17/24 Range/Units 22:40 22:40 22:40 WBC (3.8-10.6) k/uL RBC (4.30-5.90) m/uL Hgb (13.0-17.5) gm/dL Hct (39.0-53.0) % MCV (80.0-100.0) fL MCH (25.0-35.0) pg MCHC (31.0-37.0) g/dL RDW (11.5-15.5) % Plt Count (150-450) k/uL MPV Neutrophils % % Lymphocytes % % Monocytes % % Eosinophils % % Basophils % % Neutrophils # (1.3-7.7) k/uL Lymphocytes # (1.0-4.8) k/uL Monocytes # (0-1.0) k/uL Eosinophils # (0-0.7) k/uL Basophils # (0-0.2) k/uL PT 10.6 (10.0-12.5) sec INR 1.0 (<1.2) APTT 24.0 (22.0-30.0) sec D-Dimer 0.96 H (<0.60) mg/L FEU Sodium (137-145) mmol/L Potassium (3.5-5.1) mmol/L Chloride (98-107) mmol/L Carbon Dioxide (22-30) mmol/L Anion Gap mmol/L BUN (9-20) mg/dL Creatinine (0.66-1.25) mg/dL Est GFR (CKD-EPI)AfAm (>60 ml/min/1.73 sqM) Est GFR (CKD-EPI)NonAf (>60 ml/min/1.73 sqM) Glucose (74-99) mg/dL POC Glucose (mg/dL) (70-110) mg/dL POC Glu Housing Officer ID Plasma Lactic Acid Dewey 1.5 (0.7-2.0) mmol/L Calcium (8.4-10.2) mg/dL Magnesium (1.6-2.3) mg/dL Total Bilirubin (0.2-1.3) mg/dL AST (17-59) U/L ALT (4-49) U/L Alkaline Phosphatase (38-126) U/L Troponin I <0.012 (0.000-0.034) ng/mL NT-Pro-B Natriuret Pep pg/mL Total Protein (6.3-8.2) g/dL Albumin (3.5-5.0) g/dL Urine Color Urine Appearance (Clear) Urine pH (5.0-8.0) Ur Specific Colon (1.001-1.035) Urine Protein (Negative) Urine Glucose (UA) (Negative) Urine Ketones (Negative) Urine Blood (Negative) Urine Nitrite (Negative) Urine Bilirubin (Negative) Urine Urobilinogen (<2.0) mg/dL Ur Leukocyte Esterase (Negative) Urine RBC (0-5) /hpf Urine WBC (0-5) /hpf Urine Mucus (None) /hpf Acetone, Qual (Negative) Influenza Type A (PCR) (Not Detectd) Influenza Type B (PCR) (Not Detectd) RSV (PCR) (Not Detectd) SARS-CoV-2 (PCR) (Not Detectd) 02/17/24 02/17/24 02/17/24 Range/Units 23:10 23:26 23:43 WBC (3.8-10.6) k/uL RBC (4.30-5.90) m/uL Hgb (13.0-17.5) gm/dL Hct (39.0-53.0) % MCV (80.0-100.0) fL MCH (25.0-35.0) pg MCHC (31.0-37.0) g/dL RDW (11.5-15.5) % Plt Count (150-450) k/uL MPV Neutrophils % % Lymphocytes % % Monocytes % % Eosinophils % % Basophils % % Neutrophils # (1.3-7.7) k/uL Lymphocytes # (1.0-4.8) k/uL Monocytes # (0-1.0) k/uL Eosinophils # (0-0.7) k/uL Basophils # (0-0.2) k/uL PT (10.0-12.5) sec INR (<1.2) APTT (22.0-30.0) sec D-Dimer (<0.60) mg/L FEU Sodium (137-145) mmol/L Potassium (3.5-5.1) mmol/L Chloride (98-107) mmol/L Carbon Dioxide (22-30) mmol/L Anion Gap mmol/L BUN (9-20) mg/dL Creatinine (0.66-1.25) mg/dL Est GFR (CKD-EPI)AfAm (>60 ml/min/1.73 sqM) Est GFR (CKD-EPI)NonAf (>60 ml/min/1.73 sqM) Glucose (74-99) mg/dL POC Glucose (mg/dL) 152 H (70-110) mg/dL POC Glu Housing Officer ID Noel Valdovinos Plasma Lactic Acid Dewey (0.7-2.0) mmol/L Calcium (8.4-10.2) mg/dL Magnesium (1.6-2.3) mg/dL Total Bilirubin (0.2-1.3) mg/dL AST (17-59) U/L ALT (4-49) U/L Alkaline Phosphatase (38-126) U/L Troponin I (0.000-0.034) ng/mL NT-Pro-B Natriuret Pep pg/mL Total Protein (6.3-8.2) g/dL Albumin (3.5-5.0) g/dL Urine Color Colorless Urine Appearance Clear (Clear) Urine pH 5.0 (5.0-8.0) Ur Specific Colon 1.026 (1.001-1.035) Urine Protein Negative (Negative) Urine Glucose (UA) 4+ H (Negative) Urine Ketones Trace H (Negative) Urine Blood Small H (Negative) Urine Nitrite Negative (Negative) Urine Bilirubin Negative (Negative) Urine Urobilinogen <2.0 (<2.0) mg/dL Ur Leukocyte Esterase Negative (Negative) Urine RBC 1 (0-5) /hpf Urine WBC 1 (0-5) /hpf Urine Mucus Rare H (None) /hpf Acetone, Qual Negative (Negative) Influenza Type A (PCR) (Not Detectd) Influenza Type B (PCR) (Not Detectd) RSV (PCR) (Not Detectd) SARS-CoV-2 (PCR) (Not Detectd) Disposition Clinical Impression: Multilobar lung infiltrate, Bilateral pneumonia, Hypomagnesemia Disposition: ADMITTED IP TO THIS HOSP Condition: Stable
[2024-02-17 23:00] LABS: ALT 17 U/L (4-49); AST 21 U/L (17-59); African American GFR (CKD) >90 (>60 ml/min/1.73 sqM); Albumin 5.4 g/dL (3.5-5.0); Alkaline Phosphatase 96 U/L (38-126); Anion Gap 15 mmol/L; Blood Urea Nitrogen 20 mg/dL (9-20); Carbon Dioxide 25 mmol/L (22-30); Chloride 97 mmol/L (98-107); Glucose 157 mg/dL (74-99); Magnesium 1.4 mg/dL (1.6-2.3); Non-African American GFR(CKD) 79 (>60 ml/min/1.73 sqM); Potassium 4.3 mmol/L (3.5-5.1); Sodium 137 mmol/L (137-145); Total Bilirubin 0.6 mg/dL (0.2-1.3); Total Protein 8.6 g/dL (6.3-8.2)
[2024-02-17 23:02] LABS: Prothrombin Time 10.6 sec (10.0-12.5)
[2024-02-17 23:08] LABS: NT-Pro-B-Type Natriuretic Pept 110 pg/mL
[2024-02-17 23:44] LABS: Glucose,Whole Blood 152 mg/dL (70-110)
[2024-02-18 00:17] LABS: Appearance,Urine Clear (Clear); Bilirubin,Urine Negative (Negative); Blood,Urine Small (Negative); Color,Urine Colorless; Glucose,Urine (UA) 4+ (Negative); Ketones,Urine Trace (Negative); Leukocyte Esterase,Urine Negative (Negative); Mucus,Urine Rare /hpf; Nitrite,Urine Negative (Negative); Protein,Urine Negative (Negative); RBC,Urine 1 /hpf (0-5); Specific Gravity,Urine 1.026 (1.001-1.035); Urobilinogen,Urine <2.0 mg/dL (<2.0); WBC,Urine 1 /hpf (0-5)
[2024-02-18] MEDS: SODIUM CHLORIDE 0.9% 1,000 ML IV ONE (00:44)
[2024-02-18] MEDS ORDERED: NALOXONE 0.4 MG/ML 1 ML VIAL IV PRN (00:48)
[2024-02-18] MEDS ORDERED: traMADol 50 MG TAB PO PRN (00:48)
[2024-02-18] MEDS ORDERED: PNEUMONIA PROTOCOL UTILIZED 1 EACH MISC PO PRN (00:48)
[2024-02-18] MEDS: MAGNESIUM SULFATE-D5W PMX 1 GM in DEXTROSE/WATER 1 100ML.BAG IVPB SCH ×2 (00:51→05:00)
--- NOTE | 2024-02-18 01:18 | CT ---
EXAM: CT Angiography Chest With Intravenous Contrast CLINICAL HISTORY: ITS.REASON CT Reason: fever, tachy, hypoxia TECHNIQUE: Axial computed tomographic angiography images of the chest with intravenous contrast. CTDI is 13.7 mGy and DLP is 387.7 mGy-cm. This CT exam was performed using one or more of the following dose reduction techniques: automated exposure control, adjustment of the mA and/or kV according to patient size, and/or use of iterative reconstruction technique. MIP reconstructed images were created and reviewed. COMPARISON: No relevant prior studies available. FINDINGS: Pulmonary arteries: Unremarkable. No pulmonary embolism. Aorta: Atherosclerotic changes of the aorta. No thoracic aortic aneurysm. Lungs: Dependent airspace consolidations, consistent with multilobar pneumonia. Pleural space: Unremarkable. No significant effusion. No pneumothorax. Heart: Unremarkable. No cardiomegaly. No significant pericardial effusion. No evidence of RV dysfunction. Bones/joints: Degenerative changes of the spine. No acute fracture. No dislocation. Soft tissues: Unremarkable. Lymph nodes: Unremarkable. No enlarged lymph nodes. IMPRESSION: 1. No pulmonary embolism. Evaluation limited due to suboptimal contrast bolus timing. 2. Dependent airspace consolidations, consistent with multilobar pneumonia.
[2024-02-18] MEDS ORDERED: NITROGLYCERIN SL TABS 0.4 MG TAB SUBLINGUAL PRN (01:32)
[2024-02-18] MEDS: SODIUM CHLORIDE 0.9% 1,000 ML IV SCH (02:00)
--- NOTE | 2024-02-18 03:36 | P.HPIM ---
History of Present Illness H&P Date: 02/18/24 Patient is a 68-year-old male with a PMH of type II DM, hypertension, BPH, hypothyroidism, and chronic diarrhea who presents to the emergency room with complaints of shortness of breath, fever, and hypoxia. The patient is accompanied by his at the bedside. The patient reports that over the past 1 week, he has been feeling somewhat under the weather with mild shortness of breath and a cough productive of phlegm. They were recently in [place] and were taking a flight back to [place] earlier today when during the flight the patient began feeling really ill and developed shaking chills. He was noted to be hypoxic and also hypertensive. He also reported a mild diffuse headache during his flight which has persisted since then. He denied experiencing lower extremity swelling or pain. Also denied experiencing chest discomfort, nausea, vomiting. Reports that his symptoms of improved significantly after arrival to the emergency room. Chest CT in the emergency room revealed bibasilar consolidations concerning for pneumonia. EKG revealed sinus rhythm at 95 bpm with left axis deviation and a right bundle branch block as reviewed by me. Laboratory evaluation was remarkable for leukocytosis of 10.7, glucose 157, magnesium 1.4, troponin less than 0.012 with acetone negative. The patient had a fever of 102.9 F upon arrival in the emergency room with pulse 119 and SpO2 89% on room air with BP 153/108. ED documentation reviewed and case discussed with ED provider. Review of systems: Pertinent positives and negatives as discussed in HPI, a complete review of systems was performed and all other systems are negative. Physical examination: Vital signs reviewed General: non toxic, no distress, appears at stated age, overweight Derm: no unusual rashes/lesions, warm Head: atraumatic, normocephalic, symmetric Eyes: EOMI, no lid lag, anicteric sclera, pupils equal round reactive to light ENT: Nose and ears atraumatic Neck: No cervical lymphadenopathy, trachea midline, supple Mouth: no lip lesion, mucus membranes moist Cardiovascular: S1S2 reg, no murmur, positive dorsalis pedis pulse bilateral, no edema Lungs: Bibasilar rhonchi without wheezing, no accessory muscle use Abdominal: soft, nontender to palpation, no guarding Ext: muscle strength 5 out of 5 in all 4 extremities grossly, no gross muscle atrophy, no contractures, Neuro: CN II-XI grossly intact, no gross focal neuro deficits Psych: Alert, oriented, appropriate affect Assessment: Sepsis secondary to community-acquired pneumonia Hypomagnesemia Chronic conditions: Type II DM, hypertension, BPH, hypothyroidism Imaging: Chest CT in the emergency room revealed bibasilar consolidations concerning for pneumonia. EKG revealed sinus rhythm at 95 bpm with left axis deviation and a right bundle branch block as reviewed by me. Data Review: Laboratory evaluation was remarkable for leukocytosis of 10.7, glucose 157, magnesium 1.4, troponin less than 0.012 with acetone negative. The patient had a fever of 102.9 F upon arrival in the emergency room with pulse 119 and SpO2 89% on room air with BP 153/108. Plan: Continue with antibiotics including ceftriaxone and azithromycin Continue IV fluids normal saline 125 cc/h Thyroid blood, sputum, and Legionella cultures Continue supplemental oxygen Replace magnesium and monitor for resolution Resume home antihypertensive lisinopril DVT prophylaxis: Lovenox subcu The patient is admitted with an anticipated fewer than 2 midnight stay for evaluation of CAP CODE STATUS: Full Code Discussed with: Patient Anticipated discharge place: Home Past Medical History Past Medical History: Coronary Artery Disease (CAD), Cancer, Diabetes Mellitus, Hyperlipidemia, Myocardial Infarction ([place]) Additional Past Medical History / Comment(s): Bladder CA mi x 2 in 2021 Last Myocardial Infarction Date:: 10/29/21 History of Any Multi-Drug Resistant Organisms: None Reported Past Surgical History: Heart Catheterization With Stent Additional Past Surgical History / Comment(s): stents x2 bladder ca surgery, pain procedures Past Anesthesia/Blood Transfusion Reactions: No Reported Reaction Date of Last Stent Placement:: 10/29/21 Past Psychological History: No Psychological Hx Reported Smoking Status: Current every day smoker, Former smoker Past Alcohol Use History: None Reported Past Drug Use History: None Reported - Past Family History Father History Unknown: Yes Mother History Unknown: Yes Medications and Allergies Home Medications Medication Instructions Recorded Confirmed Type Lansoprazole [Prevacid 24Hr] 30 mg PO DAILY 10/29/21 03/09/22 History Tamsulosin [Flomax] 0.4 mg PO DAILY 10/29/21 03/09/22 History Acetaminophen Tab [Tylenol] 325 mg PO Q6HR PRN tab 11/03/21 03/09/22 Rx Aspirin 81 mg PO DAILY #90 tab 11/03/21 03/09/22 Rx Nitroglycerin Sl Tabs [Nitrostat] 0.4 mg SUBLINGUAL Q5M PRN #25 tab 11/03/21 03/09/22 Rx lisinopriL [Zestril] 10 mg PO DAILY #90 tab 11/03/21 03/09/22 Rx Magnesium Oxide [Mag-Ox] 400 mg PO TID #30 tab 11/15/21 03/09/22 Rx Metoprolol Succinate (ER) [Toprol 25 mg PO DAILY #30 tab 11/15/21 03/09/22 Rx XL] Atorvastatin Calcium [Lipitor] 40 mg PO DAILY 03/09/22 03/09/22 History Clopidogrel [Plavix] 75 mg PO DAILY 03/09/22 03/09/22 History Empagliflozin [Jardiance] 1 tab PO DAILY 03/09/22 03/09/22 History Levothyroxine Sodium 25 mcg PO DAILY 03/09/22 03/09/22 History Loperamide HCl [Loperamide] 2 tab PO DAILY 03/09/22 03/09/22 History Nitroglycerin Sl Tabs [Nitrostat] 1 tab PO Q5M PRN 03/09/22 03/09/22 History Allergies Allergy/AdvReac Type Severity Reaction Status Date / Time No Known Allergies Allergy Verified 02/17/24 22:05 Physical Exam Vitals: Vital Signs Temp Pulse Resp BP Pulse Ox 02/18/24 03:00 76 18 124/68 97 02/18/24 00:33 99.6 F 85 18 144/82 96 02/17/24 23:21 100.6 F H 107 H 20 150/79 94 L 02/17/24 22:25 113 H 20 185/85 92 L 02/17/24 22:02 102.9 F H 119 H 18 153/108 89 L Intake and Output 02/17/24 02/17/24 02/18/24 14:59 22:59 06:59 Other: Weight 77.111 kg Results CBC & Chem 7: 02/17/24 22:40 02/17/24 22:40 Labs: Abnormal Lab Results - Last 24 Hours (Table) 02/17/24 02/17/24 02/17/24 Range/Units 22:40 22:40 22:40 WBC 10.7 H (3.8-10.6) k/uL Neutrophils # 9.7 H (1.3-7.7) k/uL Lymphocytes # 0.6 L (1.0-4.8) k/uL D-Dimer 0.96 H (<0.60) mg/L FEU Chloride 97 L (98-107) mmol/L Glucose 157 H (74-99) mg/dL POC Glucose (mg/dL) (70-110) mg/dL Magnesium 1.4 L (1.6-2.3) mg/dL C-Reactive Protein (<1.0) mg/dL Total Protein 8.6 H (6.3-8.2) g/dL Albumin 5.4 H (3.5-5.0) g/dL Urine Glucose (UA) (Negative) Urine Ketones (Negative) Urine Blood (Negative) Urine Mucus (None) /hpf 02/17/24 02/17/24 02/18/24 Range/Units 23:26 23:43 02:33 WBC (3.8-10.6) k/uL Neutrophils # (1.3-7.7) k/uL Lymphocytes # (1.0-4.8) k/uL D-Dimer (<0.60) mg/L FEU Chloride (98-107) mmol/L Glucose (74-99) mg/dL POC Glucose (mg/dL) 152 H (70-110) mg/dL Magnesium (1.6-2.3) mg/dL C-Reactive Protein 4.7 H (<1.0) mg/dL Total Protein (6.3-8.2) g/dL Albumin (3.5-5.0) g/dL Urine Glucose (UA) 4+ H (Negative) Urine Ketones Trace H (Negative) Urine Blood Small H (Negative) Urine Mucus Rare H (None) /hpf
[2024-02-18] MEDS ORDERED: CALCIUM CARBONATE 500 MG CHEWABLE PO PRN (04:00)
[2024-02-18] MEDS ORDERED: MAG HYDROX/AL HYDROX/SIMETH 30 ML CUP PO PRN (06:00)
[2024-02-18] MEDS ORDERED: DAPAGLIFLOZIN PROPANEDIOL 10 MG TABLET PO SCH (09:00)
[2024-02-18] MEDS: ENOXAPARIN 40 MG/0.4 ML SYRINGE SQ SCH (09:24)
[2024-02-18] MEDS: ASPIRIN 81 MG PO SCH (09:24)
[2024-02-18] MEDS: ATORVASTATIN 40 MG TAB PO SCH (09:25)
[2024-02-18] MEDS: MAGNESIUM OXIDE 400 MG TAB PO SCH (09:25)
[2024-02-18] MEDS: PANTOPRAZOLE 40 MG TABLET PO SCH (09:25)
[2024-02-18] MEDS: ACETAMINOPHEN TAB 325 MG TAB PO PRN (09:25)
[2024-02-18] MEDS: METOPROLOL SUCCINATE (ER) 25 MG TAB.ER.24H PO SCH (09:25)
[2024-02-18] MEDS: TAMSULOSIN 0.4 MG CAP.ER.24H PO SCH (09:25)
[2024-02-18] MEDS: LOPERAMIDE 2 MG CAP PO SCH (09:25)
[2024-02-18] MEDS: hydrALAZINE HCL 25 MG TAB PO SCH (17:01)
[2024-02-18] MEDS: LEVOTHYROXINE 50 MCG TAB PO SCH (22:05)
[2024-02-18] MEDS: lisinopriL 10 MG TAB PO SCH (22:05)
[2024-02-19] MEDS: AZITHROMYCIN 500 MG TAB PO SCH (08:35)
[2024-02-19 08:44] VITALS: BP 139/75; PULSE 73; RESP 17; TEMP 98.4
--- NOTE | 2024-02-19 11:06 | P.DS ---
Providers Date of admission: 02/18/24 09:53 Expected date of discharge: 02/19/24 Attending physician: Kory Mccann MD Primary care physician: Stated None Hospital Course: Discharge Diagnosis: Sepsis secondary to community-acquired pneumonia Type 2 diabetes Hypertension with urgency Hypomagnesemia Hypothyroidism BPH Hospital Course: 68-year-old male with a PMH of type II DM, hypertension, BPH, hypothyroidism, and chronic diarrhea who presents to the emergency room with complaints of shortness of breath, fever, and hypoxia. Chest CT in the emergency room revealed bibasilar consolidations concerning for pneumonia. EKG revealed sinus rhythm at 95 bpm with left axis deviation and a right bundle branch block. Laboratory evaluation was remarkable for leukocytosis of 10.7, glucose 157, magnesium 1.4, troponin less than 0.012 with acetone negative. The patient had a fever of 102.9 F upon arrival in the emergency room with pulse 119 and SpO2 89% on room air with BP 153/108. Patient started on IV antibiotics. Procalc itonin negative. Urine Legionella negative. Clinical suspicion is still high for community-acquired pneumonia. Patient now on room air at the time of discharge. Being discharged on oral antibiotics. Patient seen and examined at bedside. Vital signs reviewed and stable. General: Nontoxic, no distress, appears at stated age Derm: Warm, dry Head: Atraumatic, normocephalic, symmetric Eyes: EOMI, no lid lag, anicteric sclera Mouth: No lip lesion, mucus membranes moist Cardiovascular: S1S2 reg, no murmur Lungs: Fine bibasilar rales, no accessory muscle use Abdominal: Soft, nontender to palpation, no guarding, no appreciable organomegaly Ext: No gross muscle atrophy, no edema, no contractures Neuro: CN II-XI grossly intact, no focal neuro deficits Psych: Alert, oriented, appropriate affect A total of 33 minutes of time were spent preparing this complex discharge summary. Patient was discharged on 02/19/2024 at 1034. Patient Condition at Discharge: Stable Plan - Discharge Summary New Discharge Prescriptions: New Azithromycin [Zithromax] 500 mg PO DAILY #2 tab Cefdinir 300 mg PO Q12HR #8 cap Continue Aspirin 81 mg PO DAILY #90 tab Metoprolol Succinate (ER) [Toprol XL] 25 mg PO DAILY #30 tab Atorvastatin Calcium [Lipitor] 40 mg PO DAILY Loperamide HCl [Loperamide] 2 - 4 tab PO QID PRN PRN Reason: Diarrhea Empagliflozin [Jardiance] 25 mg PO DAILY Levothyroxine Sodium [Synthroid] 50 mcg PO DAILY Pioglitazone [Actos] 30 mg PO DAILY Tamsulosin [Flomax] 0.4 mg PO DAILY Lansoprazole [Prevacid 24Hr] 30 mg PO DAILY Nitroglycerin Sl Tabs [Nitrostat] 0.4 mg SUBLINGUAL Q5M PRN #25 tab PRN Reason: Chest Pain lisinopriL [Zestril] 10 mg PO DAILY #90 tab Magnesium Oxide [Mag-Ox] 400 mg PO DAILY Discharge Medication List Lansoprazole [Prevacid 24Hr] 30 mg PO DAILY 10/29/21 [History] Tamsulosin [Flomax] 0.4 mg PO DAILY 10/29/21 [History] Aspirin 81 mg PO DAILY #90 tab 11/03/21 [Rx] Nitroglycerin Sl Tabs [Nitrostat] 0.4 mg SUBLINGUAL Q5M PRN #25 tab 11/03/21 [Rx] lisinopriL [Zestril] 10 mg PO DAILY #90 tab 11/03/21 [Rx] Metoprolol Succinate (ER) [Toprol XL] 25 mg PO DAILY #30 tab 11/15/21 [Rx] Atorvastatin Calcium [Lipitor] 40 mg PO DAILY 03/09/22 [History] Empagliflozin [Jardiance] 25 mg PO DAILY 03/09/22 [History] Loperamide HCl [Loperamide] 2 - 4 tab PO QID PRN 03/09/22 [History] Levothyroxine Sodium [Synthroid] 50 mcg PO DAILY 02/18/24 [History] Magnesium Oxide [Mag-Ox] 400 mg PO DAILY 02/18/24 [History] Pioglitazone [Actos] 30 mg PO DAILY 02/18/24 [History] Azithromycin [Zithromax] 500 mg PO DAILY #2 tab 02/19/24 [Rx] Cefdinir 300 mg PO Q12HR #8 cap 02/19/24 [Rx] Follow up Appointment(s)/Referral(s): [facility] [NON-STAFF] - 1 Week [facility] [NON-STAFF] - 1 Week None,Stated [Primary Care Provider] - 1-2 days Patient Instructions/Handouts: Community Acquired Pneumonia (DC) Activity/Diet/Wound Care/Special Instructions: Please see PCP. You may need pulmonology and repeat CT scan in 3-6 months.
== END 2024-02-19 12:03 | disposition home or self-care (01) | DRG 871 ==
LOC: EC 21:58 → 4SSUR 02-18 00:52 → OBSVTOIN 02-18 09:53 → 1SOBS 02-18 15:27
PROVIDERS: ADMIT Internal Medicine; ATTEND Internal Medicine
DX: A41.9 Sepsis, unspecified organism (principal); J18.9 Pneumonia, unspecified organism; I16.0 Hypertensive urgency; E11.65 Type 2 diabetes mellitus with hyperglycemia; E03.9 Hypothyroidism, unspecified; I10 Essential (primary) hypertension; E83.42 Hypomagnesemia; E78.5 Hyperlipidemia, unspecified; R09.02 Hypoxemia; N40.0 Benign prostatic hyperplasia without lower urinary tract symptoms; I25.10 Atherosclerotic heart disease of native coronary artery without angina pectoris; Z79.02 Long term (current) use of antithrombotics/antiplatelets; Z87.891 Personal history of nicotine dependence; I25.2 Old myocardial infarction; Z79.890 Hormone replacement therapy; Z79.82 Long term (current) use of aspirin; Z79.84 Long term (current) use of oral hypoglycemic drugs; Z85.51 Personal history of malignant neoplasm of bladder; Z79.899 Other long term (current) drug therapy
CPT/HCPCS: 36415; 71275; 80053; 81001; 82009; 83605; 83735; 83880; 84145; 84484; 85025; 85379; 85610; 85730; 86140; 87040; 87070; 87205; 87449; 87636; 93005; 96374; 96375; 99284

== ENCOUNTER 2024-08-20 08:35 | Day surgery (SDC) | payer MEDICARE ==
[2024-08-19 10:21] VITALS: BMI 24.8
[~2024-08-20 08:35] MED LIST: ALPRAZolam 0.25 MG TAB PO PRN; ALPRAZolam 0.5 MG TAB PO PRN
[2024-08-20] MEDS: SODIUM CHLORIDE 0.9% 1,000 ML in EMPTY BAG 1 BAG IV SCH ×2 (08:55→16:59)
[2024-08-20 09:07] LABS: Glucose,Whole Blood 106 mg/dL (70-110)
[2024-08-20] MEDS: IV FLUID CONTINUATION 1,000 ML IV ONE (09:07)
[2024-08-20 09:17] LABS: Basophils # (A) 0.04 10*3/uL (0.00-0.10); Basophils % (A) 0.5 %; Eosinophils # (A) 0.19 10*3/uL (0.04-0.35); Eosinophils % (A) 2.4 %; HCT 40.6 % (39.6-50.0); HGB 14.0 g/dL (13.0-17.0); Lymphocytes # (A) 1.96 10*3/uL (0.90-5.00); Lymphocytes % (A) 25.2 %; MCH 31.3 pg (27.0-32.0); MCHC 34.5 g/dL (32.0-37.0); MCV 90.6 fL (80.0-97.0); Monocytes # (A) 0.63 10*3/uL (0.20-1.00); Monocytes % (A) 8.1 %; Neutrophils # (A) 4.93 10*3/uL (1.80-7.70); Neutrophils % (A) 63.5 %; Platelet Count 216 10*3/uL (140-440); RBC 4.48 10*6/uL (4.40-5.60); RDW 13.3 % (11.5-14.5); WBC 7.77 10*3/uL (4.50-10.00)
[2024-08-20] MEDS: ASPIRIN 325 MG TAB PO ONE (09:17)
[2024-08-20 09:30] LABS: African American GFR (CKD) >90 (>60 ml/min/1.73 sqM); Anion Gap 12 mmol/L; Blood Urea Nitrogen 25 mg/dL (9-20); Calcium 9.3 mg/dL (8.4-10.2); Carbon Dioxide 26 mmol/L (22-30); Chloride 102 mmol/L (98-107); Glucose 108 mg/dL (74-99); Non-African American GFR(CKD) >90 (>60 ml/min/1.73 sqM); Potassium 3.6 mmol/L (3.5-5.1); Sodium 140 mmol/L (137-145)
[2024-08-20] MEDS: HEPARIN SODIUM,PORCINE 10,000 UNIT in SODIUM CHLORIDE 0.9% 1,000 ML IRRIGATION PRN (11:20)
[2024-08-20] MEDS: HEPARIN SODIUM,PORCINE (1 ML) 2,500 UNIT in SODIUM CHLORIDE 0.9% 250 ML IRRIGATION PRN (11:21)
[2024-08-20] MEDS: MIDAZOLAM 2 MG/2 ML VIAL IVP ONE (11:40)
[2024-08-20] MEDS: fentaNYL (PF) 50 MCG/ML 2 ML AMP IVP ONE (11:40)
[2024-08-20] MEDS: LIDOCAINE 1% INJ 10MG/ML (20 ML MDV) SQ ONE (11:40)
[2024-08-20] MEDS: VERAPAMIL SYRINGE (5 MG/10 ML) INTRAARTER ONE ×2 (11:43→12:20)
[2024-08-20] MEDS: HEPARIN SODIUM 1,000 UN/ML (10ML VL) IVP ONE ×2 (11:44→11:58)
[2024-08-20] MEDS: PRASUGREL 10 MG TAB PO ONE (11:55)
[2024-08-20] MEDS: NITROGLYCERIN SL TABS 0.4 MG TAB SUBLINGUAL PRN (12:19)
[2024-08-20] MEDS: IOPAMIDOL-370 100ML BTL INJ ONE (12:23)
[2024-08-20] MEDS ORDERED: ZOLPIDEM 5 MG TAB PO PRN (12:25)
[2024-08-20] MEDS ORDERED: RX INFO: IV CONTRAST WAS GIVEN 1 EACH MISC MISCELLANE PRN (12:25)
[2024-08-20] MEDS ORDERED: ATROPINE SULFATE 0.1 MG/ML 10ML SYRINGE IV PRN (12:25)
[2024-08-20] MEDS ORDERED: NITROGLYCERIN SL TABS 0.4 MG TAB SUBLINGUAL PRN (12:25)
[2024-08-20] MEDS ORDERED: MAG HYDROX/AL HYDROX/SIMETH 30 ML CUP PO PRN (12:25)
--- NOTE | 2024-08-20 12:30 | P.PCN ---
Date of Procedure: 08/20/24 Operative Findings: CARDIAC CATHETERIZATION AND PERCUTANEOUS CORONARY INTERVENTION PERFORMING PHYSICIAN: Rinku Peng MD, VI PROCEDURE PERFORMED: 1. Selective right and left coronary angiogram and left heart catheterization 2. Successful stenting of the proximal LCx using 3.0 x 18 mm Xience BINTA with an excellent angiographic results 3. Adjunctive use of IVUS 4. Ultrasound-guided access of the right radial artery INDICATION: Symptomatic 68-year-old gentleman who underwent myocardial perfusion imaging stress test given to be abnormal COMPLICATION: None APPROACH: Right radial artery LEVEL OF SEDATION: Moderate with the sedation time off 35 minutes PROCEDURE DESCRIPTION: After obtaining informed consent the patient was brought to the cardiac Decker Operator. The right radial artery was cannulated using micropuncture technique under ultrasound guidance a micropuncture wire passed easily then I placed a 6 Maltese 11 cm sheath at the right radial artery. 2 mg of verapamil intra-arterial and 5000's of heparin intravenous given. Subsequently selective right and left coronary angiogram and left heart catheterization performed using JR4 and JL 3.5 catheters. After that I decided to intervene on the LCx. Anticoagulation continued using heparin with continuous ACT monitoring and subsequently I engaged the left main using JL 3.5 guiding catheter. I did wired the left circumflex using a run-through wire. IVUS was performed and showed a diameter around 3 mm. Predilatation was performed using 2.5 mm balloon before I deployed 3.0 x 18 mm stent which was postdilated using 3.0 mm noncompliant balloon with final angiogram showing excellent angiographic results and the procedure was completed with no complication SELECTIVE CORONARY ANGIOGRAM: The right coronary artery: Moderate caliber vessel with possible either spasm or lesion about 50% involving the proximal portion Left main: Has mild disease only The left circumflex: Large caliber vessel nondominant vessel with severe disease involving the proximal portion and patent stent in the midportion The left anterior descending artery: Has no evidence of any high-grade stenosis HEMODYNAMICS: The LVEDP was about 10 mmHg with no significant gradient across aortic valve CONCLUSION: 1. Patent stent in the mid LCx with critical disease involving the proximal LCx. I did perform successful PCI of the proximal LCx 2. Intermediate plaque involving the proximal RCA versus spasm involving the proximal RCA. I would consider medical treatment at this point 3. Normal left-sided filling pressure POSTPROCEDURE MANAGEMENT: 1. Dual antiplatelet therapy using aspirin and Effient for 6 month 2. Aggressive cholesterol control 3. Follow-up with the patient
[2024-08-20 17:38] LABS: Glucose,Whole Blood 95 mg/dL (70-110)
[2024-08-20 19:54] LABS: Glucose,Whole Blood 175 mg/dL (70-110)
[2024-08-20] MEDS: TAMSULOSIN 0.4 MG CAP.ER.24H PO SCH (19:59)
[2024-08-20] MEDS: ATORVASTATIN 40 MG TAB PO SCH (19:59)
[2024-08-21 05:55] LABS: Glucose,Whole Blood 104 mg/dL (70-110)
[2024-08-21] MEDS: PANTOPRAZOLE 40 MG TABLET PO SCH (06:19)
[2024-08-21] MEDS: LEVOTHYROXINE 50 MCG TAB PO SCH (06:19)
[2024-08-21 06:39] LABS: African American GFR (CKD) >90 (>60 ml/min/1.73 sqM); Non-African American GFR(CKD) >90 (>60 ml/min/1.73 sqM)
[2024-08-21 08:29] VITALS: BP 120/73; PULSE 65; RESP 16; TEMP 98.3
[2024-08-21] MEDS: ASPIRIN 81 MG PO SCH (08:30)
[2024-08-21] MEDS: METOPROLOL SUCCINATE (ER) 25 MG TAB.ER.24H PO SCH (08:30)
[2024-08-21] MEDS: PRASUGREL 10 MG TAB PO SCH (08:30)
--- NOTE | 2024-08-21 08:57 | P.DS ---
Providers Attending physician: Rinku Peng Consults: 08/20/24 12:25 Consult Physician Routine Consulting Provider: [facility] Consult Reason/Comments: Post Interventional Patient Do you want consulting provider notified?: Already Contacted Primary care physician: Willian Heard [facility] Hospital Course: The patient is a 68-year-old gentleman who underwent yesterday heart catheterization and PCI of the LCx proximally He was seen and evaluated this morning and he is asymptomatic and hemodynamically stable with a right radial site is soft and nontender with no bruises The patient will be discharged home on dual antiplatelet therapy and statin and I will follow-up with the patient next week in the office Plan - Discharge Summary Discharge Rx Participant: No New Discharge Prescriptions: New Prasugrel [Effient] 10 mg PO DAILY #90 tablet Continue Aspirin 81 mg PO DAILY #90 tab Atorvastatin Calcium [Lipitor] 40 mg PO HS Empagliflozin [Jardiance] 25 mg PO QAM Levothyroxine Sodium [Synthroid] 50 mcg PO QAM lisinopriL [Zestril] 10 mg PO QAM Metoprolol Succinate (ER) [Toprol XL] 25 mg PO QAM Tamsulosin [Flomax] 0.4 mg PO HS Lansoprazole [Prevacid 24Hr OTC] 30 mg PO QAM Tirzepatide [Mounjaro] 2.5 mg SQ FR Discharge Medication List Lansoprazole [Prevacid 24Hr OTC] 30 mg PO QAM 10/29/21 [History] Tamsulosin [Flomax] 0.4 mg PO HS 10/29/21 [History] Aspirin 81 mg PO DAILY #90 tab 11/03/21 [Rx] Atorvastatin Calcium [Lipitor] 40 mg PO HS 03/09/22 [History] Empagliflozin [Jardiance] 25 mg PO QAM 03/09/22 [History] Levothyroxine Sodium [Synthroid] 50 mcg PO QAM 02/18/24 [History] Metoprolol Succinate (ER) [Toprol XL] 25 mg PO QAM 08/19/24 [History] Tirzepatide [Mounjaro] 2.5 mg SQ FR 08/19/24 [History] lisinopriL [Zestril] 10 mg PO QAM 08/19/24 [History] Prasugrel [Effient] 10 mg PO DAILY #90 tablet 08/21/24 [Rx] Follow up Appointment(s)/Referral(s): Rinku Peng MD [STAFF PHYSICIAN] - 1 Week (OFFICE WILL CALL PATIENT WITH A FOLLOW UP APPOINTMENT DATE/TIME. )
[2024-08-21] MEDS ORDERED: NON FORMULARY DRUG (Tirzepatide [Mounjaro] 2.5 MG/0.5 ML Pen.Injctr) SQ SCH (12:24)
== END 2024-08-21 10:44 | disposition home or self-care (01) ==
LOC: CATHCVL 08:35 → 6NMEDSUR 13:03 → CATHCVL 08-21 10:44
PROVIDERS: ATTEND Internal Medicine Interventional Cardiology
DX: I25.10 Atherosclerotic heart disease of native coronary artery without angina pectoris (principal); I10 Essential (primary) hypertension; E11.9 Type 2 diabetes mellitus without complications; E78.5 Hyperlipidemia, unspecified; Z87.891 Personal history of nicotine dependence; Z79.02 Long term (current) use of antithrombotics/antiplatelets; Z79.82 Long term (current) use of aspirin; Z79.84 Long term (current) use of oral hypoglycemic drugs; Z79.899 Other long term (current) drug therapy
CPT/HCPCS: 92978; 93458; 80048; 82565; 85025; 99152; 99153; C1894 ×2; C9600; C1769 ×3; C1874; C1725 ×2; C1887; C1753; J2250; J1644 ×3; J2003; J3010; Q9967

== ENCOUNTER 2024-08-30 06:40 | Emergency (ER) | payer MEDICARE ==
[2024-08-30 06:50] VITALS: TEMP 98
--- NOTE | 2024-08-30 07:31 | ED ---
General Adult HPI - General Chief complaint: Recheck/Abnormal Lab/Rx Stated complaint: allergic reaction Time Seen by Provider: 08/30/24 07:11 Source: patient Mode of arrival: wheelchair Limitations: no limitations - History of Present Illness Initial comments: . Patient is a 68-year-old gentleman with history of coronary artery disease and recent cardiac cath on August 20. He had 1 state stent placed on the fourth. Patient was started on a new medication, Prasguel at that time. Patient states he developed joint pain several days ago after starting this medication. He denies any falls or injuries. State it is in multiple joint. He denies any hi story of issues. Denies any fevers or history of rheumatological issues. Patient stopped the medication 2 days ago. Patient Nuys any chest pain palpitations, shortness of breath. Denies any sick contacts. Denies any urinary issues or hematuria. he states his fingers feel cold on the right hand there the cath went in, however theres no discoloration and he has normal rom of the wrist, hand and all 5 fingers. - Related Data Home Medications Medication Instructions Recorded Confirmed Lansoprazole [Prevacid 24Hr OTC] 30 mg PO QA 10/29/21 08/20/24 Tamsulosin [Flomax] 0.4 mg PO HS 10/29/21 08/20/24 Atorvastatin Calcium [Lipitor] 40 mg PO HS 03/09/22 08/20/24 Empagliflozin [Jardiance] 25 mg PO QA 03/09/22 08/20/24 Levothyroxine Sodium [Synthroid] 50 mcg PO QA 02/18/24 08/20/24 Metoprolol Succinate (ER) [Toprol 25 mg PO QA 08/19/24 08/20/24 XL] Tirzepatide [Mounjaro] 2.5 mg SQ FR 08/19/24 08/19/24 lisinopriL [Zestril] 10 mg PO QAM 08/19/24 08/20/24 Previous Rx's Medication Instructions Recorded Aspirin 81 mg PO DAILY #90 tab 11/03/21 Prasugrel [Effient] 10 mg PO DAILY #90 tablet 08/21/24 oxyCODONE HCL/ACETAMINOPHEN 1 tab PO Q6HR PRN 3 Days #12 tab 08/30/24 [Percocet 7.5-325 mg] Allergies Allergy/AdvReac Type Severity Reaction Status Date / Time No Known Allergies Allergy Verified 08/30/24 06:46 Review of Systems ROS Statement: Those systems with pertinent positive or pertinent negative responses have been documented in the HPI. ROS Other: All systems not noted in ROS Statement are negative. Constitutional: Reports: as per HPI, fever. Denies: chills ENT: Reports: as per HPI Respiratory: Reports: as per HPI Cardiovascular: Reports: as per HPI Gastrointestinal: Reports: as per HPI Musculoskeletal: Reports: as per HPI, arthralgia Skin: Reports: as per HPI, rash Past Medical History Past Medical History: Coronary Artery Disease (CAD), Cancer, Diabetes Mellitus, GERD/Reflux, Hearing Disorder / Deafness, Hyperlipidemia, Hypertension, Myocardial Infarction ([place]), Osteoarthritis (OA), Thyroid Disorder Additional Past Medical History / Comment(s): See Dr Peng's H&P. Hx bladder cancer 2017 or 2018, with chemo injected in bladder. Mild hearing loss. Hx Mi X2. 3 herniated discs in back. Last Myocardial Infarction Date:: 10/29/21 History of Any Multi-Drug Resistant Organisms: None Reported Past Surgical History: Bladder Surgery, Heart Catheterization With Stent Additional Past Surgical History / Comment(s): Cardiac stents X3, surgery for bladder cancer, pain procedures for back pain. Past Anesthesia/Blood Transfusion Reactions: No Reported Reaction Date of Last Stent Placement:: 10/29/21 Past Psychological History: No Psychological Hx Reported Smoking Status: Former smoker Past Alcohol Use History: Rare Past Drug Use History: None Reported - Past Family History Father History Unknown: Yes Mother History Unknown: Yes General Exam Limitations: no limitations General appearance: alert Head exam: Present: atraumatic Eye exam: Present: normal appearance, PERRL, EOMI, periorbital swelling ENT exam: Present: normal exam Neck exam: Present: full ROM Respiratory exam: Present: normal lung sounds bilaterally Cardiovascular Exam: Present: regular rate GI/Abdominal exam: Present: soft. Absent: distended, tenderness Extremities exam: Present: full ROM, other (Ecchymosis to the distal right wrist without any significant erythema or warmth. No signs of a septic joint or compartment syndrome normal range of motion. Good movement of all 5 fingers good capillary refill. No discoloration of the fingers) Back exam: Present: full ROM Neurological exam: Present: alert, oriented X3 Psychiatric exam: Present: normal affect, normal mood Skin exam: Present: warm Course Vital Signs 08/30/24 08/30/24 08/30/24 06:46 07:19 07:59 Temperature 98.0 F Pulse Rate 82 64 56 L Respiratory 16 19 20 Rate Blood Pressure 98/64 108/72 124/73 O2 Sat by Pulse 98 96 97 Oximetry 08/30/24 08/30/24 08/30/24 08:33 09:43 10:45 Temperature 98.0 F Pulse Rate 55 L 60 52 L Respiratory 20 20 20 Rate Blood Pressure 119/71 106/52 109/65 O2 Sat by Pulse 96 96 95 Oximetry - Reevaluation(s) Reevaluation #1: 08/30/24 patient was feeling better after pain medicine in the emergency room. I discussed following up with the aviation consultant and PCP tomorrow for further evaluation and further medical management. He will likely need a medication change as he did not tolerate the new medication well. Discussed signs return to the emergency room with the patient and at bedside including but not limited to development of fever, chest pain, shortness of breath, redness or swelling of the joints or new concerning symptoms. The patient and understand and agree to this plan. I discussed patient's symptoms workup and management with attending physician Dr. Gomez today Medical Decision Making - Medical Decision Making Was pt. sent in by a medical professional or institution (KENNEDY Galindo, RN HEMODIALYSIS CHARGE, urgent care, hospital, or assisted...) When possible be specific @ -[No] Was pt. sent in by a medical professional or institution (KENNEDY Galindo, RN HEMODIALYSIS CHARGE, urgent care, hospital, or assisted...) When possible be specific @No Did you speak to anyone other than the patient for history (EMS, parent, family, police, friend...)? What history was obtained from this source @ - at bedside Did you review nursing and triage notes (agree or disagree)? Why? @ -[I reviewed and agree with nursing and triage notes] Were old charts reviewed (outside hosp., previous admission, EMS record, old EKG, old radiological studies, urgent care reports/EKG's, assisted records)? Report findings @ -Yes old charts were reviewed Differential Diagnosis (chest pain, altered mental status, abdominal pain women, abdominal pain men, vaginal bleeding, weakness, fever, dyspnea, syncope, headache, dizziness, GI bleed, back pain, seizure, CVA, palpatations, mental hea lth, musculoskeletal)? @ -Viral infection, medication reaction, sepsis, dehydration EKG interpreted by me (3pts min.). @ -[As above] X-rays interpreted by me (1pt min.). @ -[None done] CT interpreted by me (1pt min.). @ -[None done] U/S interpreted by me (1pt. min.). @ -[None done] What testing was considered but not performed or refused? (CT, X-rays, U/S, labs)? Why? @ -[None] What meds were considered but not given or refused? Why? @ -[None] Did you discuss the management of the patient with other professionals (professionals i.e. , PA, RN HEMODIALYSIS CHARGE, lab, RT, psych nurse, clinical social work aide, clinical social work aide, teacher, human resource officer, case briefer)? Give summary @ -Discussed patient's symptoms and management with attending physician Dr. Gomez today Was smoking cessation discussed for >3mins.? @ -[No] Was critical care preformed (if so, how long)? @ -[No] Were there social determinants of health that impacted care today? How? (Homelessness, low income, unemployed, alcoholism, drug addiction, trans portation, low edu. Level, literacy, decrease access to med. care, prison, rehab)? @ -[No] Was there de-escalation of care discussed even if they declined (Discuss DNR or withdrawal of care, Hospice)? DNR status @ -[No] What co-morbidities impacted this encounter? (DM, HTN, Smoking, COPD, CAD, Cance r, CVA, ARF, Chemo, Hep., AIDS, mental health diagnosis, sleep apnea, morbid obesity)? @ -Coronary artery disease with recent stent placement, medication change Was patient admitted / discharged? Hospital course, mention meds given and route, prescriptions, significant lab abnormalities, going to OR and other pertinent info. @ -Patient is stable at this time. Vital signs are stable and his lab work is unremarkable. Patient is to follow-up with his PCP and aviation consultant tomorrow for reevaluation of the suspected medication reaction. He does understand signs to return to the emergency room including but not limited to any uncontrolled pain, development of fever or new concerning symptoms Undiagnosed new problem with uncertain prognosis? @ -[No] Drug Therapy requiring intensive monitoring for toxicity (Heparin, Nitro, Insulin, Cardizem)? @ -[No] Were any procedures done? @ -[No] Diagnosis/symptom? @ -Suspected medication reaction, arthralgia Acute, or Chronic, or Acute on Chronic? @ -Acute Uncomplicated (without systemic symptoms) or Complicated (systemic symptoms)? @ -[default] Side effects of treatment? @ -[No] Exacerbation, Progression, or Severe Exacerbation? @ -[No] Poses a threat to life or bodily function? How? (Chest pain, [place], [place], pneumonia, PE, COPD, DKA, ARF, appy, cholecystitis, CVA, Diverticulitis, Homicidal, Suicidal, threat to staff... and all critical care pts) @ -[No] - Lab Data Result diagrams: 08/30/24 07:46 08/30/24 07:46 Lab Results 08/30/24 08/30/24 08/30/24 Range/Units 07:46 07:46 08:00 WBC 6.15 (4.50-10.00) 10*3/uL RBC 4.40 (4.40-5.60) 10*6/uL Hgb 13.8 (13.0-17.0) g/dL Hct 39.5 L (39.6-50.0) % MCV 89.8 (80.0-97.0) fL MCH 31.4 (27.0-32.0) pg MCHC 34.9 (32.0-37.0) g/dL Plt Count 190 (140-440) 10*3/uL MPV 9.3 L (9.5-12.2) fL Immature Gran % (Auto) 0.3 % Neutrophils % 59.1 % Lymphocytes % 25.4 % Monocytes % 13.0 % Eosinophils % 1.5 % Basophils % 0.7 % Immature Gran # 0.02 (0.00-0.04) 10*3/uL Neutrophils # 3.64 (1.80-7.70) 10*3/uL Lymphocytes # 1.56 (0.90-5.00) 10*3/uL Monocytes # 0.80 (0.20-1.00) 10*3/uL Eosinophils # 0.09 (0.04-0.35) 10*3/uL Basophils # 0.04 (0.00-0.10) 10*3/uL Sodium 142 (137-145) mmol/L Potassium 3.5 (3.5-5.1) mmol/L Chloride 100 (98-107) mmol/L Carbon Dioxide 28 (22-30) mmol/L Anion Gap 14 mmol/L BUN 18 (9-20) mg/dL Creatinine 0.83 (0.66-1.25) mg/dL Est GFR (CKD-EPI)AfAm >90 (>60 ml/min/1.73 sqM) Est GFR (CKD-EPI)NonAf >90 (>60 ml/min/1.73 sqM) Glucose 93 (74-99) mg/dL Calcium 6.5 L (8.4-10.2) mg/dL Total Bilirubin 1.1 (0.2-1.3) mg/dL AST 33 (17-59) U/L ALT 25 (4-49) U/L Alkaline Phosphatase 53 (38-126) U/L Total Protein 7.1 (6.3-8.2) g/dL Albumin 4.4 (3.5-5.0) g/dL Urine Color Urine Appearance (Clear) Urine pH (5.0-8.0) Ur Specific [place] (1.001-1.035) Urine Protein (Negative) Urine Glucose (UA) (Negative) Urine Ketones (Negative) Urine Blood (Negative) Urine Nitrite (Negative) Urine Bilirubin (Negative) Urine Urobilinogen (<2.0) mg/dL Ur Leukocyte Esterase (Negative) Urine RBC (0-5) /hpf Urine WBC (0-5) /hpf Influenza Type A (PCR) (Not Detectd) Influenza Type B (PCR) (Not Detectd) RSV (PCR) (Not Detectd) SARS-CoV-2 (PCR) (Not Detectd) Group A Strep (PCR) NOT DETECTED (Not Detectd) 08/30/24 08/30/24 Range/Units 08:25 08:53 WBC (4.50-10.00) 10*3/uL RBC (4.40-5.60) 10*6/uL Hgb (13.0-17.0) g/dL Hct (39.6-50.0) % MCV (80.0-97.0) fL MCH (27.0-32.0) pg MCHC (32.0-37.0) g/dL Plt Count (140-440) 10*3/uL MPV (9.5-12.2) fL Immature Gran % (Auto) % Neutrophils % % Lymphocytes % % Monocytes % % Eosinophils % % Basophils % % Immature Gran # (0.00-0.04) 10*3/uL Neutrophils # (1.80-7.70) 10*3/uL Lymphocytes # (0.90-5.00) 10*3/uL Monocytes # (0.20-1.00) 10*3/uL Eosinophils # (0.04-0.35) 10*3/uL Basophils # (0.00-0.10) 10*3/uL Sodium (137-145) mmol/L Potassium (3.5-5.1) mmol/L Chloride (98-107) mmol/L Carbon Dioxide (22-30) mmol/L Anion Gap mmol/L BUN (9-20) mg/dL Creatinine (0.66-1.25) mg/dL Est GFR (CKD-EPI)AfAm (>60 ml/min/1.73 sqM) Est GFR (CKD-EPI)NonAf (>60 ml/min/1.73 sqM) Glucose (74-99) mg/dL Calcium (8.4-10.2) mg/dL Total Bilirubin (0.2-1.3) mg/dL AST (17-59) U/L ALT (4-49) U/L Alkaline Phosphatase (38-126) U/L Total Protein (6.3-8.2) g/dL Albumin (3.5-5.0) g/dL Urine Color Light Yellow Urine Appearance Clear (Clear) Urine pH 5.5 (5.0-8.0) Ur Specific [place] 1.023 (1.001-1.035) Urine Protein Negative (Negative) Urine Glucose (UA) 4+ H (Negative) Urine Ketones Negative (Negative) Urine Blood Trace H (Negative) Urine Nitrite Negative (Negative) Urine Bilirubin Negative (Negative) Urine Urobilinogen <2.0 (<2.0) mg/dL Ur Leukocyte Esterase Negative (Negative) Urine RBC 6 H (0-5) /hpf Urine WBC 1 (0-5) /hpf Influenza Type A (PCR) Not Detected (Not Detectd) Influenza Type B (PCR) Not Detected (Not Detectd) RSV (PCR) Not Detected (Not Detectd) SARS-CoV-2 (PCR) Not Detected (Not Detectd) Group A Strep (PCR) (Not Detectd) - Radiology Data Radiology results: report reviewed, image reviewed Disposition Clinical Impression: Arthralgia, Medication reaction Disposition: HOME SELF-CARE Condition: Good Prescriptions: oxyCODONE HCL/ACETAMINOPHEN [Percocet 7.5-325 mg] 1 tab PO Q6HR PRN 3 Days #12 tab PRN Reason: Pain Is patient prescribed a controlled substance at d/c from ED?: Yes When asked, does pt state using other controlled substances?: No If prescribed controlled substance>3 days was MAPS reviewed?: Prescribed <3 Days If opioid is for acute pain is fill amount 7 days or less?: No If Rx opioid, was Start Talking consent form obtained?: No Referrals: Willian Clarke MD [Primary Care Provider] - 1-2 days Time of Disposition: 09:56
[2024-08-30] MEDS: SODIUM CHLORIDE 0.9% 500 ML 500 ML IV STA (07:58)
[2024-08-30 08:00] VITALS: RESP 20
[2024-08-30 08:22] LABS: Basophils # (A) 0.04 10*3/uL (0.00-0.10); Basophils % (A) 0.7 %; Eosinophils # (A) 0.09 10*3/uL (0.04-0.35); Eosinophils % (A) 1.5 %; HCT 39.5 % (39.6-50.0); HGB 13.8 g/dL (13.0-17.0); Lymphocytes # (A) 1.56 10*3/uL (0.90-5.00); Lymphocytes % (A) 25.4 %; MCH 31.4 pg (27.0-32.0); MCHC 34.9 g/dL (32.0-37.0); MCV 89.8 fL (80.0-97.0); Monocytes # (A) 0.80 10*3/uL (0.20-1.00); Monocytes % (A) 13.0 %; Neutrophils # (A) 3.64 10*3/uL (1.80-7.70); Neutrophils % (A) 59.1 %; Platelet Count 190 10*3/uL (140-440); RBC 4.40 10*6/uL (4.40-5.60); RDW 13.1 % (11.5-14.5); WBC 6.15 10*3/uL (4.50-10.00)
[2024-08-30 08:35] LABS: ALT 25 U/L (4-49); African American GFR (CKD) >90 (>60 ml/min/1.73 sqM); Albumin 4.4 g/dL (3.5-5.0); Anion Gap 14 mmol/L; Blood Urea Nitrogen 18 mg/dL (9-20); Calcium 6.5 mg/dL (8.4-10.2); Carbon Dioxide 28 mmol/L (22-30); Chloride 100 mmol/L (98-107); Glucose 93 mg/dL (74-99); Non-African American GFR(CKD) >90 (>60 ml/min/1.73 sqM); Sodium 142 mmol/L (137-145); Total Protein 7.1 g/dL (6.3-8.2)
[2024-08-30] MEDS: MORPHINE SULFATE 4 MG/ML SYRINGE IVP STA (08:36)
[2024-08-30 08:45] LABS: AST 33 U/L (17-59); Alkaline Phosphatase 53 U/L (38-126); Potassium 3.5 mmol/L (3.5-5.1)
[2024-08-30 09:10] LABS: RSV Not Detected (Not Detectd)
[2024-08-30 09:13] LABS: Bilirubin,Urine Negative (Negative); Blood,Urine Trace (Negative); Color,Urine Light Yellow; Glucose,Urine (UA) 4+ (Negative); Ketones,Urine Negative (Negative); Leukocyte Esterase,Urine Negative (Negative); Nitrite,Urine Negative (Negative); PH, Urine 5.5 (5.0-8.0); Protein,Urine Negative (Negative); RBC,Urine 6 /hpf (0-5); Specific Gravity,Urine 1.023 (1.001-1.035); Urobilinogen,Urine <2.0 mg/dL (<2.0); WBC,Urine 1 /hpf (0-5)
[2024-08-30 10:47] VITALS: BP 109/65; PULSE 52
[2024-08-30] MEDS ORDERED: DOXYCYCLINE 100 MG TABLET PO ONE (17:23)
== END 2024-08-30 10:45 | disposition home or self-care (01) ==
LOC: EC 06:40
DX: M25.50 Pain in unspecified joint (principal); T50.905A Adverse effect of unspecified drugs, medicaments and biological substances, initial encounter; Z86.79 Personal history of other diseases of the circulatory system; Z87.891 Personal history of nicotine dependence
CPT/HCPCS: 36415; 87651; 80053; 85025; 81001; 87636; 99283; 96374; 96361; J2270